=== PATIENT | male | born 1990 | race Caucasian/White ===

== ENCOUNTER 2018-03-06 10:32 | Inpatient (IN) | payer OTHER ==
[2018-03-06 10:52] VITALS: BMI 24.3
--- NOTE | 2018-03-06 11:52 | HP ---
Admission [facility] Chief Complaint: patient here requesting detox from heroin and benzo use , reports heroin 10-20 bags daily ivdu in right arm x 3 years , sober 1.5 yrs, relapse 5 mo ago , needles from the exchange , denies sharing, + re-using , latest use 2 d ago , currently c/o nausea, diarrhea , restlessness , bodyaches , went to hospital yesterday [facility] [place] 5 mg methadone given xanax : 3-6 mg daily x 3 years , denies seizures etoh use : intermittent , usually 2 x/week , latst today roland 0.08 utox + tala , opi, mtd, bzo cocaine use : 2 x/week cannabis : occasional use tobacco : 1 ppd , requesting nrt w/ patch denies other illicits pmhx : denies pshx : denies psych : denies allergies : librium ( rash, angioedema ) Allergies/Adverse Reactions: Allergies Allergy/AdvReac Type Severity Reaction Status Date / Time chlordiazepoxide Allergy Severe Difficulty Verified 03/06/18 11:00 [From Librium] Breathing - Ebola screening Have you traveled outside of the country in the last 21 days: No Have you had contact with anyone from an Ebola affected area: No Have you been sick,other than usual withdrawal symptoms: No Do you have a fever: No - Review of Systems Constitutional: No Symptoms Reported, Chills, Diaphoresis, Malaise, Night Sweats EENT: reports: No Symptoms Reported Respiratory: reports: No Symptoms reported Cardiac: reports: No Symptoms Reported GI: reports: Nausea : reports: No Symptoms Reported Musculoskeletal: reports: Back Pain Integumentary: reports: No Symptoms Reported (left cheek from a pimple), Rash Neuro: reports: No Symptoms reported Endocrine: reports: No Symptoms Reported Hematology: reports: No Symptoms Reported Psychiatric: reports: No Sypmtoms Reported, Judgement Intact, Orientated x3 Other Systems: Reviewed and Negative Patient History - Patient Medical History Hx Asthma: No Hx Chronic Obstructive Pulmonary Disease (COPD): No Hx Cardiac Disorders: No Hx Hypertension: No Hx Seizures: No Hx Diabetes: No Hx Gastrointestinal Disorders: No Hx Genitourinary Disorders: No Hx Sexually Transmitted Disorders: No Hx Renal Disease (ESRD): No Hx Depression: No Hx Suicide Attempt: No Hx Schizophrenia: No - Patient Surgical History Past Surgical History: No - PPD History Previous Implant?: Yes Documented Results: Negative w/o proof Implanted On Prior [facility] Admission?: No - Smoking Cessation Smoking history: Current every day smoker Have you smoked in the past 12 months: Yes Aproximately how many cigarettes per day: 20 Hx Chewing Tobacco Use: No Initiated information on smoking cessation: No - Substances Abused Heroin Route: Injection Frequency: Daily Amount used: 10-20 bags Age of first use: 25 Date of Last Use: 03/04/18 Alprazolam (Xanax) Route: Oral Frequency: Daily Amount used: 6mg Age of first use: 26 Date of Last Use: 03/04/18 Alcohol Route: Oral Frequency: 1-2 times per week Amount used: 1 pint liquor Age of first use: 16 Date of Last Use: 03/06/18 Cocaine Route: Injection Frequency: 1-3 times last 30 days Amount used: 1-2 grams Age of first use: 20 Date of Last Use: 03/04/18 Family Disease History - Family Disease History Family History: Denies Admission Physical Exam [facility] - Vital Signs Vital Signs: Vital Signs - 24 hr 03/06/18 10:46 Temperature 98.4 F Pulse Rate 80 Respiratory 20 Rate Blood Pressure 117/57 - Physical General Appearance: Yes: Nourished, Appropriately Dressed, Moderate Distress, Irritable, Anxious HEENTM: Yes: Within Normal Limits, EOMI, Hearing grossly Normal, Normal ENT Inspection, Normocephalic, Normal Voice, BRISEYDA, Pharynx Normal Respiratory: Yes: Within Normal Limits, Chest Non-Tender, Lungs Clear, Normal Breath Sounds, No Respiratory Distress, No Accessory Muscle Use Neck: Yes: Within Normal Limits, No masses,lesions,Nodules, Trachea in good position Cardiology: Yes: Within Normal Limits, Regular Rhythm, Regular Rate Abdominal: Yes: Within Normal Limits, Normal Bowel Sounds, Non Tender, Flat, Soft Back: Yes: Within Normal Limits, Normal Inspection Musculoskeletal: Yes: Within Normal Limits, full range of Motion, Gait Steady, Pelvis Stable Extremities: Yes: Normal Capillary Refill, Normal Inspection, Normal Range of Motion, Non-Tender, Tremors Neurological: Yes: Within Normal Limits, Fully Oriented, Alert, Motor Strength 5 /5, Normal Mood/Affect, Normal Response Integumentary: Yes: Normal Color, Dry, Warm, Rash (left cheek acne) S Breath Alcohol Content Breath Alcohol Content: 0.008 Urine Drug Screen - Results Drug Screen Negative: No Urine Drug Screen Results: TALA-Cocaine, OPI-Opiates, BZO-Benzodiazepines, MTD- Methadone
[2018-03-06] MEDS ORDERED: MAGNESIUM CITRATE 300 ML BOTTLE PO PRN (11:56)
[2018-03-06] MEDS ORDERED: ACETAMINOPHEN 325 MG TABLET (FP) PO PRN (11:56)
[2018-03-06] MEDS ORDERED: MAG HYDROX/AL HYDROX/SIMETH 30 ML UNIT-DOSE CUP PO PRN (11:56)
[2018-03-06] MEDS ORDERED: IBUPROFEN 400 MG TABLET (FP) PO PRN (11:56)
[2018-03-06] MEDS ORDERED: MAGNESIUM HYDROX 2400MG/30ML ORAL SUSPENSION 30 ML CUP PO PRN (11:56)
[2018-03-06] MEDS ORDERED: METHADONE HCL 10 MG TABLET (FOR DETOX USE ONLY) PO ONE ×2 (12:15→23:00)
[2018-03-06] MEDS: diazePAM 5 MG TABLET PO SCH ×2 (13:09→22:32)
[2018-03-06] MEDS: NICOTINE 7 MG/24 HOURS TOPICAL PATCH TD SCH (13:10)
--- NOTE | 2018-03-06 13:35 | EKG ---
Test Reason : Blood Pressure : / mmHG Vent. Rate : 059 BPM Atrial Rate : 059 BPM P-R Int : 140 ms QRS Dur : 090 ms QT Int : 440 ms P-R-T Axes : 008 028 023 degrees QTc Int : 435 ms SINUS BRADYCARDIA OTHERWISE NORMAL ECG NO PREVIOUS ECGS AVAILABLE Confirmed by TRUNG MODI, GISELLE ([id number]) on 03/06/2018 1:35:27 PM Referred By: Confirmed By:GISELLE NINO MD
[2018-03-06] MEDS: BACITRACIN/POLYMYXIN B SULFATE 15 GM TUBE TP SCH ×3 (14:58→23:57)
[2018-03-06 17:19] LABS: URINE APPEARANCE CLEAR; URINE BILIRUBIN NEGATIVE (<2.0 mg/dL); URINE COLOR YELLOW; URINE GLUCOSE (UA) NEGATIVE (NEGATIVE); URINE KETONE NEGATIVE (NEGATIVE); URINE LEUK ESTERASE NEGATIVE (NEGATIVE); URINE NITRITE NEGATIVE (NEGATIVE); URINE PROTEIN NEGATIVE (NEGATIVE); URINE UROBILINOGEN NEGATIVE mg/dL (0.2-1.0)
[2018-03-06] MEDS ORDERED: MELATONIN 5 MG TABLETS PO PRN (22:00)
[2018-03-06] MEDS: THIAMINE HCL 100 MG TABLET (FP) PO SCH (22:32)
[2018-03-07] MEDS: diazePAM 5 MG TABLET PO SCH ×3 (05:36→22:32)
[2018-03-07] MEDS ORDERED: METHADONE HCL 10 MG TABLET (FOR DETOX USE ONLY) PO SCH (10:00)
[2018-03-07 10:22] LABS: HEMATOCRIT 38.2 % (35.4-49); HEMOGLOBIN 12.6 GM/dL (11.7-16.9); MEAN CELL VOLUME 88.1 fl (80-96); MEAN PLT VOLUME 9.1 fl (7.5-11.1); PLATELET COUNT 218 K/MM3 (134-434); RBC 4.34 M/mm3 (4.00-5.60); RDW 13.5 % (11.9-15.9); WHITE BLOOD COUNT 7.7 K/mm3 (4.0-10.0)
[2018-03-07] MEDS: BACITRACIN/POLYMYXIN B SULFATE 15 GM TUBE TP SCH ×2 (10:54→22:32)
[2018-03-07] MEDS: PRENATAL VITAMINS W/ FOLIC ACID TABLET (FP) PO SCH (10:54)
[2018-03-07] MEDS: NICOTINE 7 MG/24 HOURS TOPICAL PATCH TD SCH (10:57)
[2018-03-07 12:20] LABS: ALBUMIN 3.3 g/dl (3.4-5.0); ALK PHOS 72 U/L (45-117); ANION GAP 7 MMOL/L (8-16); BILIRUBIN,TOTAL 0.5 mg/dL (0.2-1); BLOOD UREA NITROGEN 11 mg/dL (7-18); CALCIUM 8.5 mg/dL (8.5-10.1); CHLORIDE 105 mmol/L (98-107); CO2 27 mmol/L (21-32); CREATININE 0.9 mg/dL (0.55-1.3); GLUCOSE,RANDOM 71 mg/dL (74-106); POTASSIUM 4.1 mmol/L (3.5-5.1); SGOT/AST 51 U/L (15-37); SGPT/ALT 119 U/L (13-61); SODIUM 139 mmol/L (136-145); TOT PROT 6.7 g/dl (6.4-8.2)
--- NOTE | 2018-03-07 16:54 | PN ---
[facility] CIWA - CIWA Score Nausea/Vomitin-Mild Nausea/No Vomiting Muscle Tremors: 3 Anxiety: 3 Agitation: 3 Paroxysmal Sweats: 1-Minimal Palms Moist Orientation: 1-Uncertain about Date Tacttile Disturbances: 1-Very Mild Itch/Numbness Auditory Disturbances: 1-Very Mild Visual Disturbances: 0-None Headache: 0-None Present CIWA-Ar Total Score: 14 S COWS - Scale Resting Pulse: 0= [place] 80 or Below Sweatin= Chills/Flushing Restless Observation: 1= Difficult to Sit Still Pupil Size: 0= Normal to Room Light Bone or Joint Aches: 2= Severe Diffuse Aches Runny Nose/ Eye Tearin= Nasal Congestion GI Upset > 30mins: 2= Nausea/Diarrhea Tremor Observation of Outstretched Hands: 2= Slight Tremor Visible Yawning Observation: 1= 1-2x During Session Anxiety or Irritability: 2=Irritable/Anxious Goose Flesh Skin: 0=Smooth Skin COWS Score: 12 S Progress Note (SOAP) Subjective: joints pain back pain muscle cramping sweat tremor restlessness Objective: 03/07/18 16:54 Vital Signs Temperature 98.1 F 03/07/18 13:43 Pulse Rate 63 03/07/18 13:43 Respiratory Rate 18 03/07/18 13:43 Blood Pressure 110/60 03/07/18 13:43 O2 Sat by Pulse Oximetry (%) Laboratory Last Values WBC 7.7 K/mm3 (4.0-10.0) 03/07/18 06:00 RBC 4.34 M/mm3 (4.00-5.60) 03/07/18 06:00 Hgb 12.6 GM/dL (11.7-16.9) 03/07/18 06:00 Hct 38.2 % (35.4-49) 03/07/18 06:00 MCV 88.1 fl (80-96) 03/07/18 06:00 MCH 29.0 pg (25.7-33.7) 03/07/18 06:00 MCHC 33.0 g/dl (32.0-35.9) 03/07/18 06:00 RDW 13.5 % (11.9-15.9) 03/07/18 06:00 Plt Count 218 K/MM3 (134-434) 03/07/18 06:00 MPV 9.1 fl (7.5-11.1) 03/07/18 06:00 Sodium 139 mmol/L (136-145) 03/07/18 06:00 Potassium 4.1 mmol/L (3.5-5.1) 03/07/18 06:00 Chloride 105 mmol/L (98-107) 03/07/18 06:00 Carbon Dioxide 27 mmol/L (21-32) 03/07/18 06:00 Anion Gap 7 MMOL/L (8-16) L 03/07/18 06:00 BUN 11 mg/dL (7-18) 03/07/18 06:00 Creatinine 0.9 mg/dL (0.55-1.3) 03/07/18 06:00 Creat Clearance w eGFR > 60 (>60) 03/07/18 06:00 Random Glucose 71 mg/dL (74-106) L 03/07/18 06:00 Calcium 8.5 mg/dL (8.5-10.1) 03/07/18 06:00 Total Bilirubin 0.5 mg/dL (0.2-1) 03/07/18 06:00 AST 51 U/L (15-37) H 03/07/18 06:00 ALT 119 U/L (13-61) H 03/07/18 06:00 Alkaline Phosphatase 72 U/L (45-117) 03/07/18 06:00 Total Protein 6.7 g/dl (6.4-8.2) 03/07/18 06:00 Albumin 3.3 g/dl (3.4-5.0) L 03/07/18 06:00 Urine Color Yellow 03/06/18 16:13 Urine Appearance Clear 03/06/18 16:13 Urine pH 6.0 (5.0-8.0) 03/06/18 16:13 Ur Specific [place] 1.017 (1.001-1.035) 03/06/18 16:13 Urine Protein Negative (NEGATIVE) 03/06/18 16:13 Urine Glucose (UA) Negative (NEGATIVE) 03/06/18 16:13 Urine Ketones Negative (NEGATIVE) 03/06/18 16:13 Urine Blood Negative (NEGATIVE) 03/06/18 16:13 Urine Nitrite Negative (NEGATIVE) 03/06/18 16:13 Urine Bilirubin Negative (<2.0 mg/dL) 03/06/18 16:13 Urine Urobilinogen Negative mg/dL (0.2-1.0) 03/06/18 16:13 Ur Leukocyte Esterase Negative (NEGATIVE) 03/06/18 16:13 RPR Titer Nonreactive (NONREACTIVE) 03/07/18 06:00 HIV 1&2 Antibody Screen Negative 03/06/18 11:40 HIV P24 Antigen Negative 03/06/18 11:40 lab noted Assessment: 03/07/18 16:55 withdrawal sx Plan: continue detox
--- NOTE | 2018-03-07 17:49 | PN ---
BHS COWS - Scale Resting Pulse: 0= [place] 80 or Below Sweatin= No chills or Flushing Restless Observation: 0= Sits Still Pupil Size: 0= Normal to Room Light Bone or Joint Aches: 2= Severe Diffuse Aches Runny Nose/ Eye Tearin= None GI Upset > 30mins: 2= Nausea/Diarrhea Tremor Observation of Outstretched Hands: 0= None Yawning Observation: 0= None Anxiety or Irritability: 2=Irritable/Anxious Goose Flesh Skin: 0=Smooth Skin COWS Score: 6
[2018-03-07] MEDS: BENZOYL PEROXIDE 5% 60 GM GEL..GRAM. TP SCH (22:32)
[2018-03-07] MEDS: THIAMINE HCL 100 MG TABLET (FP) PO SCH (22:35)
[2018-03-08] MEDS ORDERED: METHADONE HCL 5 MG TABLET (FOR DETOX USE ONLY) PO SCH (10:00)
[2018-03-08] MEDS: PRENATAL VITAMINS W/ FOLIC ACID TABLET (FP) PO SCH (10:17)
[2018-03-08] MEDS: diazePAM 5 MG TABLET PO SCH ×2 (10:17→23:14)
[2018-03-08] MEDS: NICOTINE 7 MG/24 HOURS TOPICAL PATCH TD SCH (10:18)
[2018-03-08] MEDS: BACITRACIN/POLYMYXIN B SULFATE 15 GM TUBE TP SCH ×2 (10:18→23:14)
[2018-03-08] MEDS: BENZOYL PEROXIDE 5% 60 GM GEL..GRAM. TP SCH (10:18)
--- NOTE | 2018-03-08 13:13 | PN ---
[facility] CIWA - CIWA Score Nausea/Vomitin-Mild Nausea/No Vomiting Muscle Tremors: None Anxiety: 1-Mildly Anxious Agitation: 1-Slight > Activity Paroxysmal Sweats: 1-Minimal Palms Moist Orientation: 0-Oriented Tacttile Disturbances: 0-None Auditory Disturbances: 0-None Visual Disturbances: 0-None Headache: 0-None Present CIWA-Ar Total Score: 4 S COWS - Scale Resting Pulse: 0= [place] 80 or Below Sweatin= Chills/Flushing Restless Observation: 1= Difficult to Sit Still Pupil Size: 0= Normal to Room Light Bone or Joint Aches: 1= Mild Discomfort Runny Nose/ Eye Tearin= None GI Upset > 30mins: 1= Stomach Cramp Tremor Observation of Outstretched Hands: 0= None Yawning Observation: 0= None Anxiety or Irritability: 1=Feels Anxious/Irritable Goose Flesh Skin: 0=Smooth Skin COWS Score: 5 S Progress Note (SOAP) Subjective: PATIENT PRESENTS WITH CHILLS, MILD BODY ACHES, ANXIETY, AND STOMACH CRAMPS. Objective: 03/08/18 13:12 Vital Signs Temperature 97.5 F L 03/08/18 09:24 Pulse Rate 71 03/08/18 09:24 Respiratory Rate 18 03/08/18 09:24 Blood Pressure 117/50 L 03/08/18 09:24 O2 Sat by Pulse Oximetry (%) Laboratory Tests 03/06/18 03/06/18 03/07/18 11:40 16:13 06:00 WBC 7.7 RBC 4.34 Hgb 12.6 Hct 38.2 MCV 88.1 MCH 29.0 MCHC 33.0 RDW 13.5 Plt Count 218 MPV 9.1 Sodium Potassium Chloride Carbon Dioxide Anion Gap BUN Creatinine Creat Clearance w eGFR Random Glucose Calcium Total Bilirubin AST ALT Alkaline Phosphatase Total Protein Albumin Urine Color Yellow Urine Appearance Clear Urine pH 6.0 Ur Specific [place] 1.017 Urine Protein Negative Urine Glucose (UA) Negative Urine Ketones Negative Urine Blood Negative Urine Nitrite Negative Urine Bilirubin Negative Urine Urobilinogen Negative Ur Leukocyte Esterase Negative RPR Titer HIV 1&2 Antibody Screen Negative HIV P24 Antigen Negative 03/07/18 03/07/18 06:00 06:00 WBC RBC Hgb Hct MCV MCH MCHC RDW Plt Count MPV Sodium 139 Potassium 4.1 Chloride 105 Carbon Dioxide 27 Anion Gap 7 L BUN 11 Creatinine 0.9 Creat Clearance w eGFR > 60 Random Glucose 71 L Calcium 8.5 Total Bilirubin 0.5 AST 51 H ALT 119 H Alkaline Phosphatase 72 Total Protein 6.7 Albumin 3.3 L Urine Color Urine Appearance Urine pH Ur Specific [place] Urine Protein Urine Glucose (UA) Urine Ketones Urine Blood Urine Nitrite Urine Bilirubin Urine Urobilinogen Ur Leukocyte Esterase RPR Titer Nonreactive HIV 1&2 Antibody Screen HIV P24 Antigen ALERT AND ORIENTED SKIN WARM AND DRY, +CHILLS CAR S1S2 RESP CTA BL GI SOFT BS+, NT Assessment: 03/08/18 13:13 WITHDRAWAL SYNDROME Plan: CONTINUE DETOX PER PROTOCOL ENCOURAGE ORAL FLUIDS
[2018-03-08] MEDS ORDERED: hydrOXYzine PAMOATE 25 MG CAPSULE (FP) PO PRN (15:58)
[2018-03-08] MEDS: THIAMINE HCL 100 MG TABLET (FP) PO SCH (23:14)
[2018-03-09 06:34] VITALS: TEMP 97.9
[2018-03-09] MEDS ORDERED: METHADONE HCL 10 MG TABLET (FOR DETOX USE ONLY) PO SCH (10:00)
[2018-03-09 10:14] VITALS: BP 117/58; PULSE 63
--- NOTE | 2018-03-09 12:40 | DS ---
[facility] Detox Discharge Summary Admission Date: 03/06/18 Discharge Date: 03/09/18 - History Present History: Opioid Dependence, Sedative Dependence Pertinent Past History: Denies - Physical Exam Results Vital Signs: Vital Signs Temperature 97.9 F 03/09/18 08:30 Pulse Rate 63 03/09/18 08:30 Respiratory Rate 18 03/09/18 08:30 Blood Pressure 117/58 L 03/09/18 08:30 O2 Sat by Pulse Oximetry (%) Pertinent Admission Physical Exam Findings: Withdrawal sx Laboratory Last Values WBC 7.7 K/mm3 (4.0-10.0) 03/07/18 06:00 RBC 4.34 M/mm3 (4.00-5.60) 03/07/18 06:00 Hgb 12.6 GM/dL (11.7-16.9) 03/07/18 06:00 Hct 38.2 % (35.4-49) 03/07/18 06:00 MCV 88.1 fl (80-96) 03/07/18 06:00 MCH 29.0 pg (25.7-33.7) 03/07/18 06:00 MCHC 33.0 g/dl (32.0-35.9) 03/07/18 06:00 RDW 13.5 % (11.9-15.9) 03/07/18 06:00 Plt Count 218 K/MM3 (134-434) 03/07/18 06:00 MPV 9.1 fl (7.5-11.1) 03/07/18 06:00 Sodium 139 mmol/L (136-145) 03/07/18 06:00 Potassium 4.1 mmol/L (3.5-5.1) 03/07/18 06:00 Chloride 105 mmol/L (98-107) 03/07/18 06:00 Carbon Dioxide 27 mmol/L (21-32) 03/07/18 06:00 Anion Gap 7 MMOL/L (8-16) L 03/07/18 06:00 BUN 11 mg/dL (7-18) 03/07/18 06:00 Creatinine 0.9 mg/dL (0.55-1.3) 03/07/18 06:00 Creat Clearance w eGFR > 60 (>60) 03/07/18 06:00 Random Glucose 71 mg/dL (74-106) L 03/07/18 06:00 Calcium 8.5 mg/dL (8.5-10.1) 03/07/18 06:00 Total Bilirubin 0.5 mg/dL (0.2-1) 03/07/18 06:00 AST 51 U/L (15-37) H 03/07/18 06:00 ALT 119 U/L (13-61) H 03/07/18 06:00 Alkaline Phosphatase 72 U/L (45-117) 03/07/18 06:00 Total Protein 6.7 g/dl (6.4-8.2) 03/07/18 06:00 Albumin 3.3 g/dl (3.4-5.0) L 03/07/18 06:00 Urine Color Yellow 03/06/18 16:13 Urine Appearance Clear 03/06/18 16:13 Urine pH 6.0 (5.0-8.0) 03/06/18 16:13 Ur Specific [place] 1.017 (1.001-1.035) 03/06/18 16:13 Urine Protein Negative (NEGATIVE) 03/06/18 16:13 Urine Glucose (UA) Negative (NEGATIVE) 03/06/18 16:13 Urine Ketones Negative (NEGATIVE) 03/06/18 16:13 Urine Blood Negative (NEGATIVE) 03/06/18 16:13 Urine Nitrite Negative (NEGATIVE) 03/06/18 16:13 Urine Bilirubin Negative (<2.0 mg/dL) 03/06/18 16:13 Urine Urobilinogen Negative mg/dL (0.2-1.0) 03/06/18 16:13 Ur Leukocyte Esterase Negative (NEGATIVE) 03/06/18 16:13 RPR Titer Nonreactive (NONREACTIVE) 03/07/18 06:00 HIV 1&2 Antibody Screen Negative 03/06/18 11:40 HIV P24 Antigen Negative 03/06/18 11:40 Labs noted - Treatment Hospital Course: Detox Protocol Followed, Detoxed Safely, Responded well, Discharged Condition Good - Medication Discharge Medications: Ambulatory Orders NK [No Known Home Medication] 03/06/18 - Diagnosis (1) Opiate withdrawal Status: Acute (2) Benzodiazepine withdrawal Status: Acute - AMA Did Patient Leave Against Medical Advice: No (Patient requested early discharge)
[2018-03-10] MEDS ORDERED: METHADONE HCL 5 MG TABLET (FOR DETOX USE ONLY) PO SCH (06:00)
[2018-03-10] MEDS ORDERED: diazePAM 5 MG TABLET PO SCH (10:00)
== END 2018-03-09 09:52 | disposition home or self-care (01) | DRG 773 ==
LOC: YASAS 10:32 → Y6N 11:42
PROC: HZ2ZZZZ Detoxification Services for Substance Abuse Treatment (ICD-10-PCS; principal; 2018-03-06)
DX: F11.23 Opioid dependence with withdrawal (principal); F13.230 Sedative, hypnotic or anxiolytic dependence with withdrawal, uncomplicated; Z88.8 Allergy status to other drugs, medicaments and biological substances
CPT/HCPCS: 36415; 80053; 81003; 85027; 86593; 87389; 93005; 93010

== ENCOUNTER 2018-04-25 10:56 | Inpatient (IN) | payer OTHER ==
[2018-04-25 11:50] VITALS: BMI 25.0
--- NOTE | 2018-04-25 13:50 | HP ---
COWS - Scale Resting Pulse: 1= [place] 81-100 Sweatin= Chills/Flushing Restless Observation: 1= Difficult to Sit Still Pupil Size: 1= Pupils >than Normal Bone or Joint Aches: 2= Severe Diffuse Aches Runny Nose/ Eye Tearin= Nasal Congestion GI Upset > 30mins: 2= Nausea/Diarrhea Tremor Observation: 2= Slight Tremor Visible Yawning Observation: 2= >3x During Session Anxiety or Irritability: 2=Irritable/Anxious Goose Flesh Skin: 0=Smooth Skin COWS Score: 15 CIWA Score Nausea/Vomitin Muscle Tremors: 2 Anxiety: 2 Agitation: 2 Paroxysmal Sweats: 1-Minimal Palms Moist Orientation: 0-Oriented Tacttile Disturbances: 1-Very Mild Itch/Numbness Auditory Disturbances: 1-Very Mild Visual Disturbances: 0-None Headache: 2-Mild CIWA-Ar Total Score: 13 - Admission Criteria [facility] Guidelines: Admission for Medically Managed Detox: Requires at least one of the followin. CIWA greater than 12 2. Seizures within the past 24 hours 3. Delirium tremens within the past 24 hours 4. Hallucinations within the past 24 hours 5. Acute intervention needed for co occurring medical disorder 6. Acute intervention needed for co occurring psychiatric disorder 7. Severe withdrawal that cannot be handled at a lower level of care (continued vomiting, continued diarrhea, abnormal vital signs) requiring intravenous medication and/or fluids 8. Patient presents the following: CIWA greater than 12 Admission Criteria Met: Admission criteria met Admission ROS S - [facility] Chief Complaint: i need help to stop =using heroin,alcohol,cocaine,xanx Allergies/Adverse Reactions: Allergies Allergy/AdvReac Type Severity Reaction Status Date / Time chlordiazepoxide Allergy Severe Difficulty Verified 04/25/18 13:02 [From Librium] Breathing History of Present Illness: this 28 years old male with heroin,alcohol,xanax and cocaine dependence, withdrawal symptom,seeking detox,last detox [facility] 03/06/18 to 03/09/18 weight loss nicotine dependence multiple admissions but relapsing longest period of sobriety 1 and a half year Exam Limitations: No Limitations - Ebola screening Have you traveled outside of the country in the last 21 days: No Have you had contact with anyone from an Ebola affected area: No Have you been sick,other than usual withdrawal symptoms: No - Review of Systems Constitutional: Chills, Loss of Appetite, Malaise, Night Sweats, Changes in sleep, Weakness, Unintentional Wgt. Loss EENT: reports: Tearing, Nose Congestion Respiratory: reports: No Symptoms reported Cardiac: reports: Palpitations GI: reports: Nausea, Poor Appetite, Abdominal cramping : reports: No Symptoms Reported Musculoskeletal: reports: Back Pain, Joint Pain, Muscle Pain Integumentary: reports: Dryness, Other (iv drug) Neuro: reports: Headache, Tremors Endocrine: reports: No Symptoms Reported Hematology: reports: No Symptoms Reported Psychiatric: reports: No Sypmtoms Reported, Judgement Intact, Mood/Affect Appropiate, Orientated x3 Patient History - Patient Medical History Hx Anemia: No Hx Asthma: No Hx Chronic Obstructive Pulmonary Disease (COPD): No Hx Cancer: No Hx Cardiac Disorders: No Hx Congestive Heart Failure: No Hx Hypertension: No Hx Hypercholesterolemia: No Hx Pacemaker: No HX Cerebrovascular Accident: No Hx Seizures: No Hx Dementia: No Hx Diabetes: No Hx Gastrointestinal Disorders: No Hx Liver Disease: No Hx Genitourinary Disorders: No Hx Sexually Transmitted Disorders: No Hx Renal Disease (ESRD): No Hx Thyroid Disease: No Hx Human Immunodeficiency Virus (HIV): No (last 04/18/18 negative) Hx Hepatitis C: No Hx Depression: No Hx Suicide Attempt: No Hx Bipolar Disorder: No Hx Schizophrenia: No Other Medical History: no suicidal,no homicidal - Patient Surgical History Past Surgical History: No - PPD History Previous Implant?: Yes Documented Results: Negative w/proof Implanted On Prior R Admission?: Yes Date: 03/08/18 Results: 0MM PPD to be Administered?: No - Smoking Cessation Smoking history: Current every day smoker Have you smoked in the past 12 months: Yes Aproximately how many cigarettes per day: 20 Hx Chewing Tobacco Use: No Initiated information on smoking cessation: Yes 'Breaking Loose' booklet given: 04/25/18 - Substance & Tx. History Hx Alcohol Use: Yes Hx Substance Use: Yes Substance Use Type: Alcohol, Cocaine, Heroin, Tranquilizers - Substances Abused Heroin Route: Injection Frequency: Daily Amount used: 10-20 BAGS Age of first use: 25 Date of Last Use: 04/24/18 Alcohol Route: Oral Frequency: Daily Amount used: 2 PINTS VODKA Age of first use: 20 Date of Last Use: 04/24/18 Cocaine Route: Inhalation Frequency: 3-6 times per week Amount used: 1 GRAM Age of first use: 16 Date of Last Use: 04/24/18 Alprazolam (Xanax) Route: Oral Frequency: Daily Amount used: 6MG Age of first use: 25 Date of Last Use: 04/24/18 Family Disease History - Family Disease History Family History: Denies Admission Physical Exam [facility] - Vital Signs Vital Signs: Vital Signs - 24 hr 04/25/18 11:48 Temperature 98.1 F Pulse Rate 91 H Respiratory 20 Rate Blood Pressure 122/56 L - Physical General Appearance: Yes: Moderate Distress, Tremorous, Irritable, Sweating, Anxious HEENTM: Yes: Normal ENT Inspection, BRISEYDA, Pharynx Normal Respiratory: Yes: Within Normal Limits, Lungs Clear, No Respiratory Distress Neck: Yes: Within Normal Limits, Supple, Trachea in good position Breast: Yes: Within Normal Limits Cardiology: Yes: Within Normal Limits, Regular Rhythm, Regular Rate, S1, S2 Abdominal: Yes: Within Normal Limits, Normal Bowel Sounds, Non Tender, Flat, Soft Genitourinary: Yes: Within Normal Limits Back: Yes: Muscle Spasm Musculoskeletal: Yes: full range of Motion, Back pain, Muscle Pain Extremities: Yes: Within Normal Limits, Normal Range of Motion, Tremors Neurological: Yes: Within Normal Limits, composite boat builder II-XII NML intact, Fully Oriented, Alert, Motor Strength 5/5 Integumentary: Yes: Dry Lymphatic: Yes: Within Normal Limits - Diagnostic (1) Opioid dependence with withdrawal Current Visit: Yes Status: Acute (2) Alcohol dependence with uncomplicated withdrawal Current Visit: Yes Status: Acute (3) Uncomplicated sedative, hypnotic or anxiolytic withdrawal Current Visit: Yes Status: Acute (4) Cocaine dependence Current Visit: Yes Status: Acute (5) Nicotine dependence Current Visit: Yes Status: Acute Cleared for Admission [facility] - Detox or Rehab [facility] Level of Care: Medically Managed Detox Regimen/Protocol: Methadone/Valium [facility] Breath Alcohol Content Breath Alcohol Content: 0.01 Urine Drug Screen - Results Drug Screen Negative: No Urine Drug Screen Results: JAGRUTI-Cocaine, OPI-Opiates
[2018-04-25] MEDS ORDERED: LOPERAMIDE HCL 2 MG CAPSULE PO PRN (14:02)
[2018-04-25] MEDS ORDERED: guaiFENesin/D-METHORPHAN HB 10 ML UNIT-DOSE CUPS PO PRN (14:02)
[2018-04-25] MEDS ORDERED: MAG HYDROX/AL HYDROX/SIMETH 30 ML UNIT-DOSE CUP PO PRN (14:02)
[2018-04-25] MEDS ORDERED: IBUPROFEN 400 MG TABLET (FP) PO PRN (14:02)
[2018-04-25] MEDS ORDERED: MAGNESIUM HYDROX 2400MG/30ML ORAL SUSPENSION 30 ML CUP PO PRN (14:02)
[2018-04-25] MEDS ORDERED: P-EPHED 60MG/TRIPROLIDI 2.5MG TABLET PO PRN (14:02)
[2018-04-25] MEDS ORDERED: ACETAMINOPHEN 325 MG TABLET (FP) PO PRN (14:02)
[2018-04-25] MEDS ORDERED: MENTHOL/PHENOL 1 EACH UD MM PRN (14:02)
[2018-04-25] MEDS ORDERED: MAGNESIUM CITRATE 300 ML BOTTLE PO PRN (14:02)
[2018-04-25] MEDS ORDERED: diazePAM 5 MG TABLET PO ONE (15:05)
[2018-04-25] MEDS ORDERED: METHADONE HCL 10 MG TABLET (FOR DETOX USE ONLY) PO ONE ×2 (15:10→23:00)
[2018-04-25] MEDS ORDERED: NICOTINE 21 MG/24 HOURS TOPICAL PATCH TD SCH (15:15)
[2018-04-25] MEDS: diazePAM 5 MG TABLET PO SCH ×2 (15:19→22:08)
[2018-04-25 17:19] LABS: URINE APPEARANCE SLCLOUDY; URINE BILIRUBIN NEGATIVE (<2.0 mg/dL); URINE COLOR YELLOW; URINE GLUCOSE (UA) NEGATIVE (NEGATIVE); URINE KETONE NEGATIVE (NEGATIVE); URINE LEUK ESTERASE NEGATIVE (NEGATIVE); URINE NITRITE NEGATIVE (NEGATIVE); URINE PROTEIN 1+ (NEGATIVE); URINE UROBILINOGEN NEGATIVE mg/dL (0.2-1.0)
[2018-04-25] MEDS: diazePAM 5 MG TABLET PO PRN (17:29)
[2018-04-25 17:48] LABS: EPI CELLS RARE /HPF (FEW); URINE BACTERIA RARE /hpf (NONE SEEN); URINE MUCUS RARE
[2018-04-25] MEDS ORDERED: NICOTINE POLACRILEX 2 MG GUM BUC PRN (18:07)
[2018-04-25] MEDS ORDERED: MELATONIN 5 MG TABLETS PO PRN (22:00)
[2018-04-25] MEDS: cloNIDine HCL 0.1 MG TABLET PO SCH (22:07)
[2018-04-25] MEDS: THIAMINE HCL 100 MG TABLET (FP) PO SCH (22:08)
[2018-04-26] MEDS: diazePAM 5 MG TABLET PO SCH ×3 (06:38→21:54)
[2018-04-26] MEDS ORDERED: METHADONE HCL 10 MG TABLET (FOR DETOX USE ONLY) PO SCH (10:00)
[2018-04-26 10:10] LABS: HEMATOCRIT 42.7 % (35.4-49); MCH 29.2 pg (25.7-33.7); MCHC 32.9 g/dl (32.0-35.9); MEAN CELL VOLUME 88.8 fl (80-96); MEAN PLT VOLUME 9.2 fl (7.5-11.1); PLATELET COUNT 200 K/MM3 (134-434); RBC 4.81 M/mm3 (4.00-5.60); WHITE BLOOD COUNT 10.6 K/mm3 (4.0-10.0)
[2018-04-26] MEDS: diazePAM 5 MG TABLET PO PRN ×2 (10:44→19:34)
[2018-04-26] MEDS: CYCLOBENZAPRINE HCL 10 MG TABLET (FP) PO PRN ×2 (10:44→21:53)
[2018-04-26] MEDS: cloNIDine HCL 0.1 MG TABLET PO SCH ×2 (10:44→21:55)
[2018-04-26] MEDS: PRENATAL VITAMINS W/ FOLIC ACID TABLET (FP) PO SCH (10:44)
[2018-04-26] MEDS: NICOTINE 21 MG/24 HOURS TOPICAL PATCH TD SCH (10:45)
[2018-04-26 10:59] LABS: ALBUMIN 3.8 g/dl (3.4-5.0); ALK PHOS 100 U/L (45-117); ANION GAP 11 MMOL/L (8-16); BILIRUBIN,TOTAL 0.6 mg/dL (0.2-1); BLOOD UREA NITROGEN 15 mg/dL (7-18); CALCIUM 8.9 mg/dL (8.5-10.1); CHLORIDE 101 mmol/L (98-107); CO2 26 mmol/L (21-32); CREATININE 0.9 mg/dL (0.55-1.3); GLUCOSE,RANDOM 108 mg/dL (74-106); POTASSIUM 3.9 mmol/L (3.5-5.1); SGOT/AST 103 U/L (15-37); SGPT/ALT 177 U/L (13-61); SODIUM 138 mmol/L (136-145); TOT PROT 7.5 g/dl (6.4-8.2)
--- NOTE | 2018-04-26 14:52 | EKG ---
Test Reason : Blood Pressure : / mmHG Vent. Rate : 069 BPM Atrial Rate : 069 BPM P-R Int : 140 ms QRS Dur : 090 ms QT Int : 394 ms P-R-T Axes : 010 023 033 degrees QTc Int : 422 ms NORMAL SINUS RHYTHM INCOMPLETE RBBB WHEN COMPARED WITH ECG OF 06-MAR-2018 12:52, NO SIGNIFICANT CHANGE WAS FOUND Confirmed by JAYDEN TOUSSAINT MD ([id number]) on 04/26/2018 2:51:57 PM Referred By: Confirmed By:JAYDEN TOUSSAINT MD
--- NOTE | 2018-04-26 16:02 | PN ---
S CIWA - CIWA Score Nausea/Vomitin Muscle Tremors: 4-Moderate,w/Arms Extend Anxiety: 4-Mod. Anxious/Guarded Agitation: 4-Moderately Restless Paroxysmal Sweats: 3 Orientation: 0-Oriented Tacttile Disturbances: 0-None Auditory Disturbances: 0-None Visual Disturbances: 0-None Headache: 0-None Present CIWA-Ar Total Score: 17 BHS COWS - Scale Resting Pulse: 0= [place] 80 or Below Sweatin= Chills/Flushing Restless Observation: 3= Extraneous Movement Pupil Size: 0= Normal to Room Light Bone or Joint Aches: 2= Severe Diffuse Aches Runny Nose/ Eye Tearin= Runny Nose/Eyes GI Upset > 30mins: 3= Vomiting/Diarrhea Tremor Observation of Outstretched Hands: 2= Slight Tremor Visible Yawning Observation: 0= None Anxiety or Irritability: 2=Irritable/Anxious Goose Flesh Skin: 0=Smooth Skin COWS Score: 15 S Progress Note (SOAP) Subjective: Tremor, chills, sweating, interrupted sleep Objective: 04/26/18 16:00 Last Vital Signs Temp Pulse Resp BP Pulse Ox 97.7 F 69 20 97/50 L 04/26/18 15:44 04/26/18 15:44 04/26/18 15:44 04/26/18 15:44 Hypotension noted (97/50) Laboratory Tests 04/25/18 04/25/18 04/26/18 15:03 15:48 06:00 WBC 10.6 H RBC 4.81 Hgb 14.0 Hct 42.7 MCV 88.8 MCH 29.2 MCHC 32.9 RDW 14.0 Plt Count 200 MPV 9.2 Sodium Potassium Chloride Carbon Dioxide Anion Gap BUN Creatinine Creat Clearance w eGFR Random Glucose Calcium Total Bilirubin AST ALT Alkaline Phosphatase Total Protein Albumin Urine Color Yellow Urine Appearance Slcloudy Urine pH 7.0 Ur Specific [place] 1.026 Urine Protein 1+ H Urine Glucose (UA) Negative Urine Ketones Negative Urine Blood Negative Urine Nitrite Negative Urine Bilirubin Negative Urine Urobilinogen Negative Ur Leukocyte Esterase Negative Urine WBC (Auto) 3 Urine RBC (Auto) <1 Ur Epithelial Cells Rare Urine Bacteria Rare Urine Mucus Rare RPR Titer HIV 1&2 Antibody Screen Negative HIV P24 Antigen Negative 04/26/18 04/26/18 06:00 06:00 WBC RBC Hgb Hct MCV MCH MCHC RDW Plt Count MPV Sodium 138 Potassium 3.9 Chloride 101 Carbon Dioxide 26 Anion Gap 11 BUN 15 Creatinine 0.9 Creat Clearance w eGFR > 60 Random Glucose 108 H Calcium 8.9 Total Bilirubin 0.6 AST 103 H ALT 177 H Alkaline Phosphatase 100 Total Protein 7.5 Albumin 3.8 Urine Color Urine Appearance Urine pH Ur Specific [place] Urine Protein Urine Glucose (UA) Urine Ketones Urine Blood Urine Nitrite Urine Bilirubin Urine Urobilinogen Ur Leukocyte Esterase Urine WBC (Auto) Urine RBC (Auto) Ur Epithelial Cells Urine Bacteria Urine Mucus RPR Titer Nonreactive HIV 1&2 Antibody Screen HIV P24 Antigen Labs reviewed: abnormal UA Assessment: 04/26/18 16:01 Withdrawal sxs Noted with abnormal UA Plan: Continue detox Abnormal UA: encouraged PO water intake, repeat UA
[2018-04-26] MEDS: THIAMINE HCL 100 MG TABLET (FP) PO SCH (21:53)
[2018-04-27] MEDS: PRENATAL VITAMINS W/ FOLIC ACID TABLET (FP) PO SCH (10:41)
[2018-04-27] MEDS: METHADONE HCL 5 MG TABLET (FOR DETOX USE ONLY) PO SCH (10:41)
[2018-04-27] MEDS: cloNIDine HCL 0.1 MG TABLET PO SCH ×2 (10:41→22:13)
[2018-04-27] MEDS: diazePAM 5 MG TABLET PO SCH ×2 (10:42→22:13)
[2018-04-27] MEDS: NICOTINE 21 MG/24 HOURS TOPICAL PATCH TD SCH (10:43)
--- NOTE | 2018-04-27 12:00 | PN ---
S CIWA - CIWA Score Nausea/Vomitin-No Nausea/No Vomiting Muscle Tremors: 2 Anxiety: 3 Agitation: 3 Paroxysmal Sweats: 3 Orientation: 0-Oriented Tacttile Disturbances: 1-Very Mild Itch/Numbness Auditory Disturbances: 0-None Visual Disturbances: 0-None Headache: 0-None Present CIWA-Ar Total Score: 12 BHS COWS - Scale Resting Pulse: 1= [place] 81-100 Sweatin= Chills/Flushing Restless Observation: 1= Difficult to Sit Still Pupil Size: 1= Pupils >than Normal Bone or Joint Aches: 1= Mild Discomfort Runny Nose/ Eye Tearin= Runny Nose/Eyes GI Upset > 30mins: 0= None Tremor Observation of Outstretched Hands: 2= Slight Tremor Visible Yawning Observation: 2= >3x During Session Anxiety or Irritability: 2=Irritable/Anxious Goose Flesh Skin: 0=Smooth Skin COWS Score: 13 S Progress Note (SOAP) Subjective: sweats, chills, body aches, interrupted sleep Objective: 04/27/18 11:56 Vital Signs Temperature 98.6 F 04/27/18 10:56 Pulse Rate 93 H 04/27/18 10:56 Respiratory Rate 18 04/27/18 10:56 Blood Pressure 103/55 L 04/27/18 10:56 O2 Sat by Pulse Oximetry (%) 04/27/18 11:58 Laboratory Last Values WBC 10.6 K/mm3 (4.0-10.0) H 04/26/18 06:00 RBC 4.81 M/mm3 (4.00-5.60) 04/26/18 06:00 Hgb 14.0 GM/dL (11.7-16.9) 04/26/18 06:00 Hct 42.7 % (35.4-49) 04/26/18 06:00 MCV 88.8 fl (80-96) 04/26/18 06:00 MCH 29.2 pg (25.7-33.7) 04/26/18 06:00 MCHC 32.9 g/dl (32.0-35.9) 04/26/18 06:00 RDW 14.0 % (11.9-15.9) 04/26/18 06:00 Plt Count 200 K/MM3 (134-434) 04/26/18 06:00 MPV 9.2 fl (7.5-11.1) 04/26/18 06:00 Sodium 138 mmol/L (136-145) 04/26/18 06:00 Potassium 3.9 mmol/L (3.5-5.1) 04/26/18 06:00 Chloride 101 mmol/L (98-107) 04/26/18 06:00 Carbon Dioxide 26 mmol/L (21-32) 04/26/18 06:00 Anion Gap 11 MMOL/L (8-16) 04/26/18 06:00 BUN 15 mg/dL (7-18) 04/26/18 06:00 Creatinine 0.9 mg/dL (0.55-1.3) 04/26/18 06:00 Creat Clearance w eGFR > 60 (>60) 04/26/18 06:00 Random Glucose 108 mg/dL (74-106) H 04/26/18 06:00 Calcium 8.9 mg/dL (8.5-10.1) 04/26/18 06:00 Total Bilirubin 0.6 mg/dL (0.2-1) 04/26/18 06:00 AST 103 U/L (15-37) H 04/26/18 06:00 ALT 177 U/L (13-61) H 04/26/18 06:00 Alkaline Phosphatase 100 U/L (45-117) 04/26/18 06:00 Total Protein 7.5 g/dl (6.4-8.2) 04/26/18 06:00 Albumin 3.8 g/dl (3.4-5.0) 04/26/18 06:00 Urine Color Yellow 04/25/18 15:48 Urine Appearance Slcloudy 04/25/18 15:48 Urine pH 7.0 (5.0-8.0) 04/25/18 15:48 Ur Specific [place] 1.026 (1.010-1.035) 04/25/18 15:48 Urine Protein 1+ (NEGATIVE) H 04/25/18 15:48 Urine Glucose (UA) Negative (NEGATIVE) 04/25/18 15:48 Urine Ketones Negative (NEGATIVE) 04/25/18 15:48 Urine Blood Negative (NEGATIVE) 04/25/18 15:48 Urine Nitrite Negative (NEGATIVE) 04/25/18 15:48 Urine Bilirubin Negative (<2.0 mg/dL) 04/25/18 15:48 Urine Urobilinogen Negative mg/dL (0.2-1.0) 04/25/18 15:48 Ur Leukocyte Esterase Negative (NEGATIVE) 04/25/18 15:48 Urine WBC (Auto) 3 /hpf (3-5) 04/25/18 15:48 Urine RBC (Auto) <1 /hpf (0-3) 04/25/18 15:48 Ur Epithelial Cells Rare /HPF (FEW) 04/25/18 15:48 Urine Bacteria Rare /hpf (NONE SEEN) 04/25/18 15:48 Urine Mucus Rare 04/25/18 15:48 RPR Titer Nonreactive (NONREACTIVE) 04/26/18 06:00 HIV 1&2 Antibody Screen Negative 04/25/18 15:03 HIV P24 Antigen Negative 04/25/18 15:03 Aox3 no distress no adventitious breath sounds full ROM ambulatory Assessment: 04/27/18 12:04 withdrawal sx Plan: increase fluids continue detox continue to monitor
[2018-04-27] MEDS: diazePAM 5 MG TABLET PO PRN ×2 (14:01→19:25)
[2018-04-27] MEDS: THIAMINE HCL 100 MG TABLET (FP) PO SCH (22:14)
[2018-04-28] MEDS: diazePAM 5 MG TABLET PO PRN ×2 (08:37→12:57)
[2018-04-28] MEDS: PRENATAL VITAMINS W/ FOLIC ACID TABLET (FP) PO SCH (10:33)
[2018-04-28] MEDS: METHADONE HCL 5 MG TABLET (FOR DETOX USE ONLY) PO SCH (10:33)
[2018-04-28] MEDS: diazePAM 5 MG TABLET PO SCH ×2 (10:33→22:22)
[2018-04-28] MEDS: NICOTINE 21 MG/24 HOURS TOPICAL PATCH TD SCH (10:35)
[2018-04-28] MEDS: cloNIDine HCL 0.1 MG TABLET PO SCH ×2 (10:35→22:22)
[2018-04-28] MEDS: CYCLOBENZAPRINE HCL 10 MG TABLET (FP) PO PRN ×2 (12:57→22:22)
--- NOTE | 2018-04-28 15:06 | PN ---
B[facility] Progress Note (SOAP) Subjective: Chills, sweating, body ache, interrupted sleep Objective: 04/28/18 15:04 Last Vital Signs Temp Pulse Resp BP Pulse Ox 97.4 F L 50 L 18 100/62 04/28/18 14:53 04/28/18 14:53 04/28/18 14:53 04/28/18 14:53 Laboratory Tests 04/25/18 04/25/18 04/26/18 15:03 15:48 06:00 WBC 10.6 H RBC 4.81 Hgb 14.0 Hct 42.7 MCV 88.8 MCH 29.2 MCHC 32.9 RDW 14.0 Plt Count 200 MPV 9.2 Sodium Potassium Chloride Carbon Dioxide Anion Gap BUN Creatinine Creat Clearance w eGFR Random Glucose Calcium Total Bilirubin AST ALT Alkaline Phosphatase Ammonia Total Protein Albumin Urine Color Yellow Urine Appearance Slcloudy Urine pH 7.0 Ur Specific [place] 1.026 Urine Protein 1+ H Urine Glucose (UA) Negative Urine Ketones Negative Urine Blood Negative Urine Nitrite Negative Urine Bilirubin Negative Urine Urobilinogen Negative Ur Leukocyte Esterase Negative Urine WBC (Auto) 3 Urine RBC (Auto) <1 Ur Epithelial Cells Rare Urine Bacteria Rare Urine Mucus Rare RPR Titer HIV 1&2 Antibody Screen Negative HIV P24 Antigen Negative 04/26/18 04/26/18 04/28/18 06:00 06:00 07:30 WBC RBC Hgb Hct MCV MCH MCHC RDW Plt Count MPV Sodium 138 Potassium 3.9 Chloride 101 Carbon Dioxide 26 Anion Gap 11 BUN 15 Creatinine 0.9 Creat Clearance w eGFR > 60 Random Glucose 108 H Calcium 8.9 Total Bilirubin 0.6 AST 103 H ALT 177 H Alkaline Phosphatase 100 Ammonia 88.40 H Total Protein 7.5 Albumin 3.8 Urine Color Urine Appearance Urine pH Ur Specific [place] Urine Protein Urine Glucose (UA) Urine Ketones Urine Blood Urine Nitrite Urine Bilirubin Urine Urobilinogen Ur Leukocyte Esterase Urine WBC (Auto) Urine RBC (Auto) Ur Epithelial Cells Urine Bacteria Urine Mucus RPR Titer Nonreactive HIV 1&2 Antibody Screen HIV P24 Antigen Labs reviewed: abnormal UA Assessment: 04/28/18 15:05 Withdrawal sxs Plan: Continue detox Abnormal UA: encouraged PO water intake, repeat UA
[2018-04-28 19:04] LABS: URINE APPEARANCE CLEAR; URINE BILIRUBIN NEGATIVE (<2.0 mg/dL); URINE COLOR YELLOW; URINE GLUCOSE (UA) NEGATIVE (NEGATIVE); URINE KETONE NEGATIVE (NEGATIVE); URINE LEUK ESTERASE NEGATIVE (NEGATIVE); URINE NITRITE NEGATIVE (NEGATIVE); URINE PROTEIN NEGATIVE (NEGATIVE); URINE UROBILINOGEN NEGATIVE mg/dL (0.2-1.0)
[2018-04-28] MEDS: THIAMINE HCL 100 MG TABLET (FP) PO SCH (22:22)
[2018-04-29] MEDS ORDERED: diazePAM 5 MG TABLET PO SCH (10:00)
[2018-04-29] MEDS ORDERED: METHADONE HCL 10 MG TABLET (FOR DETOX USE ONLY) PO SCH (10:00)
[2018-04-29] MEDS: PRENATAL VITAMINS W/ FOLIC ACID TABLET (FP) PO SCH (10:13)
[2018-04-29] MEDS: NICOTINE 21 MG/24 HOURS TOPICAL PATCH TD SCH (10:13)
[2018-04-29] MEDS: cloNIDine HCL 0.1 MG TABLET PO SCH (10:13)
[2018-04-29 13:33] VITALS: BP 95/62; PULSE 101; TEMP 98.1
--- NOTE | 2018-04-29 14:15 | PN ---
B[facility] Progress Note (SOAP) Subjective: Requesting to be discharged today States he wants to go as he has pink eye Refusing evaluation of his pink eye/treatment Objective: 04/29/18 14:26 Irritable Seeing pt for first time Not receptive to advise to complete detox Will sign out against medical advice Plan: To leave against medical advice
--- NOTE | 2018-04-29 14:39 | DS ---
[facility] Detox Discharge Summary Admission Date: 04/25/18 Discharge Date: 04/29/18 - History Additional Comments: Pt signing out of unit against medical advice as pt has not completed detox - Physical Exam Results Vital Signs: Vital Signs Temperature 98.1 F 04/29/18 13:32 Pulse Rate 101 H 04/29/18 13:32 Respiratory Rate 20 04/29/18 13:32 Blood Pressure 95/62 04/29/18 13:32 O2 Sat by Pulse Oximetry (%) - Medication Discharge Medications: Ambulatory Orders NK [No Known Home Medication] 03/06/18 - AMA Did Patient Leave Against Medical Advice: Yes
[2018-04-30] MEDS ORDERED: METHADONE HCL 5 MG TABLET (FOR DETOX USE ONLY) PO SCH (06:00)
== END 2018-04-29 14:30 | disposition left against medical advice (07) | DRG 770 ==
LOC: YASAS 10:56 → Y3N 14:12
PROC: HZ2ZZZZ Detoxification Services for Substance Abuse Treatment (ICD-10-PCS; principal; 2018-04-25)
DX: F11.23 Opioid dependence with withdrawal (principal); F10.230 Alcohol dependence with withdrawal, uncomplicated; F13.230 Sedative, hypnotic or anxiolytic dependence with withdrawal, uncomplicated; F14.20 Cocaine dependence, uncomplicated; F17.200 Nicotine dependence, unspecified, uncomplicated; R82.90 Unspecified abnormal findings in urine; Z88.8 Allergy status to other drugs, medicaments and biological substances
CPT/HCPCS: 36415; 80053; 81003; 81015; 82140; 85027; 86593; 87389; 93005; 93010; J0735

== ENCOUNTER 2018-06-03 11:34 | Inpatient (IN) | payer OTHER ==
[2018-06-03 12:13] VITALS: BMI 25.7
--- NOTE | 2018-06-03 13:26 | HP ---
COWS - Scale Resting Pulse: 1= [place] 81-100 Sweatin= Chills/Flushing Restless Observation: 1= Difficult to Sit Still Pupil Size: 1= Pupils >than Normal Bone or Joint Aches: 2= Severe Diffuse Aches Runny Nose/ Eye Tearin= Runny Nose/Eyes GI Upset > 30mins: 2= Nausea/Diarrhea Tremor Observation: 2= Slight Tremor Visible Yawning Observation: 1= 1-2x During Session Anxiety or Irritability: 2=Irritable/Anxious Goose Flesh Skin: 0=Smooth Skin COWS Score: 15 CIWA Score Nausea/Vomitin Muscle Tremors: 2 Anxiety: 2 Agitation: 2 Paroxysmal Sweats: 1-Minimal Palms Moist Orientation: 0-Oriented Tacttile Disturbances: 1-Very Mild Itch/Numbness Auditory Disturbances: 1-Very Mild Visual Disturbances: 0-None Headache: 2-Mild CIWA-Ar Total Score: 13 - Admission Criteria [facility] Guidelines: Admission for Medically Managed Detox: Requires at least one of the followin. CIWA greater than 12 2. Seizures within the past 24 hours 3. Delirium tremens within the past 24 hours 4. Hallucinations within the past 24 hours 5. Acute intervention needed for co occurring medical disorder 6. Acute intervention needed for co occurring psychiatric disorder 7. Severe withdrawal that cannot be handled at a lower level of care (continued vomiting, continued diarrhea, abnormal vital signs) requiring intravenous medication and/or fluids 8. Patient presents the following: CIWA greater than 12 Admission Criteria Met: Admission criteria met Admission ROS [facility] Chief Complaint: i need help to stop using heroin,alcohol and cocaine Allergies/Adverse Reactions: Allergies Allergy/AdvReac Type Severity Reaction Status Date / Time chlordiazepoxide Allergy Severe Difficulty Verified 06/03/18 14:01 [From Librium] Breathing - Ebola screening Have you traveled outside of the country in the last 21 days: No Have you had contact with anyone from an Ebola affected area: No Have you been sick,other than usual withdrawal symptoms: No - Review of Systems Constitutional: Chills, Loss of Appetite, Malaise, Night Sweats, Changes in sleep, Weakness, Unintentional Wgt. Loss EENT: reports: Tearing, Nose Congestion Respiratory: reports: No Symptoms reported Cardiac: reports: No Symptoms Reported GI: reports: Nausea, Poor Appetite, Abdominal cramping : reports: No Symptoms Reported Musculoskeletal: reports: Back Pain, Joint Pain, Muscle Pain, Joint Stiffness Integumentary: reports: Dryness Neuro: reports: Headache, Tremors Endocrine: reports: No Symptoms Reported Hematology: reports: No Symptoms Reported Psychiatric: reports: No Sypmtoms Reported, Judgement Intact, Mood/Affect Appropiate, Orientated x3 Patient History - Patient Medical History Hx Anemia: No Hx Asthma: No Hx Chronic Obstructive Pulmonary Disease (COPD): No Hx Cancer: No Hx Cardiac Disorders: No Hx Congestive Heart Failure: No Hx Hypertension: No Hx Hypercholesterolemia: No Hx Pacemaker: No HX Cerebrovascular Accident: No Hx Seizures: No Hx Dementia: No Hx Diabetes: No Hx Gastrointestinal Disorders: No Hx Liver Disease: No Hx Genitourinary Disorders: No Hx Sexually Transmitted Disorders: No Hx Renal Disease (ESRD): No Hx Thyroid Disease: No Hx Human Immunodeficiency Virus (HIV): No (last 04/18/18 negative) Hx Hepatitis C: No Hx Depression: No Hx Suicide Attempt: No Hx Bipolar Disorder: No Hx Schizophrenia: No Other Medical History: no suicidal,no homicidal - Patient Surgical History Past Surgical History: No Hx Neurologic Surgery: No Hx Cataract Extraction: No Hx Cardiac Surgery: No Hx Lung Surgery: No Hx Breast Surgery: No Hx Breast Biopsy: No Hx Abdominal Surgery: No Hx Appendectomy: No Hx Cholecystectomy: No Hx Genitourinary Surgery: No Hx Section: No Hx Orthopedic Surgery: No Anesthesia Reaction: No - PPD History Previous Implant?: Yes Documented Results: Negative w/proof Implanted On Prior [facility] Admission?: Yes Date: 03/08/18 Results: 0 mm PPD to be Administered?: No - Smoking Cessation Smoking history: Current every day smoker Have you smoked in the past 12 months: Yes Aproximately how many cigarettes per day: 20 Hx Chewing Tobacco Use: No Initiated information on smoking cessation: Yes 'Breaking Loose' booklet given: 06/03/18 - Substance & Tx. History Hx Alcohol Use: Yes Hx Substance Use: Yes Substance Use Type: Alcohol, Cocaine, Heroin Hx Substance Use Treatment: Yes ([facility] 02/06/18 to 02/11/18) - Substances Abused Heroin Route: Injection Frequency: Daily Amount used: 04/01 Age of first use: 25 Date of Last Use: 06/02/18 Cocaine Route: Inhalation Frequency: 3-6 times per week Amount used: $300 Age of first use: 21 Date of Last Use: 06/02/18 Alcohol-vodka Route: Oral Frequency: Daily Amount used: 1-3 pts. Age of first use: 16 Date of Last Use: 06/02/18 Family Disease History - Family Disease History Family History: Denies Admission Physical Exam [facility] - Vital Signs Vital Signs: Vital Signs - 24 hr 06/03/18 12:10 Temperature 98.0 F Pulse Rate 95 H Respiratory 18 Rate Blood Pressure 128/72 - Physical General Appearance: Yes: Moderate Distress, Tremorous, Irritable, Sweating, Anxious HEENTM: Yes: [place], Pharynx Normal, Other (redness of right eye conjunctiva stated leave the contact lens for 4 sdays now has been removed no discharge) Respiratory: Yes: Within Normal Limits, Lungs Clear, Normal Breath Sounds Neck: Yes: Within Normal Limits, Supple, Trachea in good position Breast: Yes: Within Normal Limits Cardiology: Yes: Within Normal Limits, Regular Rhythm, Regular Rate, S1, S2 Abdominal: Yes: Within Normal Limits, Normal Bowel Sounds, Non Tender, Soft Genitourinary: Yes: Within Normal Limits Back: Yes: Normal Inspection, Muscle Spasm Musculoskeletal: Yes: full range of Motion, Back pain, Muscle Pain Extremities: Yes: Within Normal Limits, Normal Range of Motion, Tremors, Other ( nicole villasenor right hand for 2 days ,seen at [facility] 2 days ago,was told x ray is negative) 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, Alert, Motor Strength 5/5 Integumentary: Yes: Dry Lymphatic: Yes: Within Normal Limits - Diagnostic (1) Opioid dependence with withdrawal Current Visit: No Status: Acute (2) Alcohol dependence with uncomplicated withdrawal Current Visit: No Status: Acute (3) Cocaine dependence Current Visit: No Status: Chronic (4) Nicotine dependence Current Visit: No Status: Chronic Qualifiers: Nicotine product type: cigarettes (5) Weight loss Current Visit: Yes Status: Acute (6) Lip dryness Current Visit: Yes Status: Acute (7) Dehydration Current Visit: Yes Status: Acute (8) Contusion of right hand Current Visit: Yes Status: Acute Cleared for Admission [facility] - Detox or Rehab [facility] Level of Care: Medically Managed Detox Regimen/Protocol: Methadone/Valium [facility] Breath Alcohol Content Breath Alcohol Content: 0 Urine Drug Screen - Results Drug Screen Negative: No Urine Drug Screen Results: THC-Marijuana, JAGRUTI-Cocaine, OPI-Opiates, AMP- Amphetamines, MET-Methamphetamine, BZO-Benzodiazepines
[2018-06-03] MEDS ORDERED: MAG HYDROX/AL HYDROX/SIMETH 30 ML UNIT-DOSE CUP PO PRN (13:35)
[2018-06-03] MEDS ORDERED: NICOTINE POLACRILEX 2 MG GUM BC PRN (13:35)
[2018-06-03] MEDS ORDERED: MAGNESIUM HYDROX 2400MG/30ML ORAL SUSPENSION 30 ML CUP PO PRN (13:35)
[2018-06-03] MEDS ORDERED: ACETAMINOPHEN 325 MG TABLET (FP) PO PRN (13:35)
[2018-06-03] MEDS ORDERED: LOPERAMIDE HCL 2 MG CAPSULE PO PRN (13:35)
[2018-06-03] MEDS ORDERED: IBUPROFEN 400 MG TABLET (FP) PO PRN (13:35)
[2018-06-03] MEDS ORDERED: guaiFENesin/D-METHORPHAN HB 10 ML UNIT-DOSE CUPS PO PRN (13:35)
[2018-06-03] MEDS ORDERED: P-EPHED 60MG/TRIPROLIDI 2.5MG TABLET PO PRN (13:35)
[2018-06-03] MEDS ORDERED: MAGNESIUM CITRATE 300 ML BOTTLE PO PRN (13:35)
[2018-06-03] MEDS ORDERED: MENTHOL/PHENOL 1 EACH UD MM PRN (13:35)
[2018-06-03] MEDS ORDERED: METHADONE HCL 10 MG TABLET (FOR DETOX USE ONLY) PO ONE ×2 (14:15→23:00)
[2018-06-03] MEDS ORDERED: diazePAM 5 MG TABLET PO ONE (14:15)
[2018-06-03] MEDS: NICOTINE 21 MG/24 HOURS TOPICAL PATCH TD SCH (15:12)
[2018-06-03] MEDS: VITAMINS A AND D TOPICAL OINTMENT 60 GM TUBE TP SCH (18:29)
[2018-06-03 18:41] LABS: URINE APPEARANCE CLEAR; URINE BILIRUBIN NEGATIVE (<2.0 mg/dL); URINE COLOR YELLOW; URINE GLUCOSE (UA) NEGATIVE (NEGATIVE); URINE KETONE 2+ (NEGATIVE); URINE LEUK ESTERASE NEGATIVE (NEGATIVE); URINE NITRITE NEGATIVE (NEGATIVE); URINE PROTEIN NEGATIVE (NEGATIVE)
[2018-06-03] MEDS: diazePAM 5 MG TABLET PO PRN (19:52)
[2018-06-03] MEDS ORDERED: MELATONIN 5 MG TABLETS PO PRN (22:00)
[2018-06-03] MEDS: THIAMINE HCL 100 MG TABLET (FP) PO SCH (22:13)
[2018-06-03] MEDS: diazePAM 5 MG TABLET PO SCH (22:13)
[2018-06-03] MEDS: cloNIDine HCL 0.1 MG TABLET PO SCH (22:13)
[2018-06-04] MEDS: VITAMINS A AND D TOPICAL OINTMENT 60 GM TUBE TP SCH ×5 (05:43→23:25)
[2018-06-04] MEDS: diazePAM 5 MG TABLET PO SCH ×3 (05:43→23:25)
[2018-06-04] MEDS: cloNIDine HCL 0.1 MG TABLET PO SCH ×2 (09:33→23:25)
[2018-06-04] MEDS: diazePAM 5 MG TABLET PO PRN ×3 (09:33→21:43)
[2018-06-04] MEDS: NICOTINE 21 MG/24 HOURS TOPICAL PATCH TD SCH (09:33)
[2018-06-04] MEDS: PRENATAL VITAMINS W/ FOLIC ACID TABLET (FP) PO SCH (09:33)
[2018-06-04] MEDS ORDERED: METHADONE HCL 10 MG TABLET (FOR DETOX USE ONLY) PO SCH (10:00)
--- NOTE | 2018-06-04 10:18 | PN ---
[facility] CIWA - CIWA Score Nausea/Vomitin-No Nausea/No Vomiting Muscle Tremors: 4-Moderate,w/Arms Extend Anxiety: 3 Agitation: 3 Paroxysmal Sweats: 3 Orientation: 0-Oriented Tacttile Disturbances: 0-None Auditory Disturbances: 0-None Visual Disturbances: 0-None Headache: 0-None Present CIWA-Ar Total Score: 13 BHS COWS - Scale Resting Pulse: 1= [place] 81-100 Sweatin=Flushed/Facial Moisture Restless Observation: 1= Difficult to Sit Still Pupil Size: 0= Normal to Room Light Bone or Joint Aches: 2= Severe Diffuse Aches Runny Nose/ Eye Tearin= Runny Nose/Eyes GI Upset > 30mins: 1= Stomach Cramp Tremor Observation of Outstretched Hands: 2= Slight Tremor Visible Yawning Observation: 2= >3x During Session Anxiety or Irritability: 2=Irritable/Anxious Goose Flesh Skin: 0=Smooth Skin COWS Score: 15 S Progress Note (SOAP) Subjective: shakes sweats body aches interrupted sleep irritable right hand swelling anxiety Objective: 06/04/18 10:16 Vital Signs Temperature 98.1 F 06/04/18 09:24 Pulse Rate 100 H 06/04/18 09:24 Respiratory Rate 16 06/04/18 09:24 Blood Pressure 113/58 L 06/04/18 09:24 O2 Sat by Pulse Oximetry (%) Laboratory Tests 06/03/18 15:33 Urine Color Yellow Urine Appearance Clear Urine pH 5.0 D Ur Specific [place] 1.025 Urine Protein Negative Urine Glucose (UA) Negative Urine Ketones 2+ H Urine Blood Negative Urine Nitrite Negative Urine Bilirubin Negative Urine Urobilinogen 2.0 Ur Leukocyte Esterase Negative rest of labs pending aaox3 ambulating no acute distress Assessment: 06/04/18 10:17 withdrawal sx Plan: continue detox increase fluids noe bandage motrin prn
[2018-06-04 10:24] LABS: HEMATOCRIT 41.6 % (35.4-49); HEMOGLOBIN 13.5 GM/dL (11.7-16.9); MCH 28.6 pg (25.7-33.7); MCHC 32.5 g/dl (32.0-35.9); MEAN CELL VOLUME 87.9 fl (80-96); MEAN PLT VOLUME 9.7 fl (7.5-11.1); PLATELET COUNT 170 K/MM3 (134-434); RBC 4.74 M/mm3 (4.00-5.60); RDW 13.4 % (11.9-15.9); WHITE BLOOD COUNT 12.4 K/mm3 (4.0-10.0)
[2018-06-04 10:56] LABS: ALBUMIN 3.6 g/dl (3.4-5.0); ALK PHOS 73 U/L (45-117); ANION GAP 8 MMOL/L (8-16); BILIRUBIN,TOTAL 1.6 mg/dL (0.2-1); BLOOD UREA NITROGEN 12 mg/dL (7-18); CALCIUM 8.2 mg/dL (8.5-10.1); CHLORIDE 100 mmol/L (98-107); CO2 28 mmol/L (21-32); GLUCOSE,RANDOM 108 mg/dL (74-106); POTASSIUM 3.2 mmol/L (3.5-5.1); SGOT/AST 132 U/L (15-37); SGPT/ALT 141 U/L (13-61); SODIUM 136 mmol/L (136-145); TOT PROT 6.8 g/dl (6.4-8.2)
[2018-06-04] MEDS: THIAMINE HCL 100 MG TABLET (FP) PO SCH (23:25)
[2018-06-05] MEDS: VITAMINS A AND D TOPICAL OINTMENT 60 GM TUBE TP SCH ×3 (05:48→20:03)
[2018-06-05] MEDS: diazePAM 5 MG TABLET PO PRN ×3 (05:49→21:08)
[2018-06-05] MEDS: NICOTINE 21 MG/24 HOURS TOPICAL PATCH TD SCH (09:51)
[2018-06-05] MEDS: diazePAM 5 MG TABLET PO SCH ×2 (09:52→22:26)
[2018-06-05] MEDS: METHADONE HCL 5 MG TABLET (FOR DETOX USE ONLY) PO SCH (09:52)
[2018-06-05] MEDS: PRENATAL VITAMINS W/ FOLIC ACID TABLET (FP) PO SCH (09:52)
[2018-06-05] MEDS: cloNIDine HCL 0.1 MG TABLET PO SCH (09:56)
--- NOTE | 2018-06-05 12:22 | PN ---
[facility] CIWA - CIWA Score Nausea/Vomitin-Int. Nausea w/Dry Heave Agitation: 1-Slight > Activity Paroxysmal Sweats: 2 Orientation: 0-Oriented Tacttile Disturbances: 0-None Auditory Disturbances: 0-None Visual Disturbances: 0-None Headache: 0-None Present S COWS - Scale Resting Pulse: 0= [place] 80 or Below Sweatin= Chills/Flushing Restless Observation: 1= Difficult to Sit Still Pupil Size: 1= Pupils >than Normal Bone or Joint Aches: 1= Mild Discomfort Runny Nose/ Eye Tearin= Nasal Congestion GI Upset > 30mins: 2= Nausea/Diarrhea Tremor Observation of Outstretched Hands: 1= Tremor [place], Not Seen Yawning Observation: 0= None Anxiety or Irritability: 1=Feels Anxious/Irritable Goose Flesh Skin: 0=Smooth Skin COWS Score: 9 [facility] Progress Note (SOAP) Subjective: interrupted sleep, sweats, nausea, vomiting x 1 Objective: 06/05/18 12:20 Vital Signs Temperature 97.3 F L 06/05/18 09:13 Pulse Rate 84 06/05/18 09:13 Respiratory Rate 18 06/05/18 09:13 Blood Pressure 116/55 L 06/05/18 09:13 O2 Sat by Pulse Oximetry (%) Laboratory Tests 06/03/18 06/04/18 06/04/18 15:33 05:45 05:45 WBC 12.4 H RBC 4.74 Hgb 13.5 Hct 41.6 MCV 87.9 MCH 28.6 MCHC 32.5 RDW 13.4 Plt Count 170 MPV 9.7 Sodium 136 Potassium 3.2 L Chloride 100 Carbon Dioxide 28 Anion Gap 8 BUN 12 Creatinine 1.0 Creat Clearance w eGFR > 60 Random Glucose 108 H Calcium 8.2 L Total Bilirubin 1.6 H AST 132 H ALT 141 H Alkaline Phosphatase 73 Total Protein 6.8 Albumin 3.6 Urine Color Yellow Urine Appearance Clear Urine pH 5.0 D Ur Specific [place] 1.025 Urine Protein Negative Urine Glucose (UA) Negative Urine Ketones 2+ H Urine Blood Negative Urine Nitrite Negative Urine Bilirubin Negative Urine Urobilinogen 2.0 Ur Leukocyte Esterase Negative RPR Titer 06/04/18 05:45 WBC RBC Hgb Hct MCV MCH MCHC RDW Plt Count MPV Sodium Potassium Chloride Carbon Dioxide Anion Gap BUN Creatinine Creat Clearance w eGFR Random Glucose Calcium Total Bilirubin AST ALT Alkaline Phosphatase Total Protein Albumin Urine Color Urine Appearance Urine pH Ur Specific [place] Urine Protein Urine Glucose (UA) Urine Ketones Urine Blood Urine Nitrite Urine Bilirubin Urine Urobilinogen Ur Leukocyte Esterase RPR Titer Nonreactive pt aox3 lying in bed in nad Assessment: 06/05/18 12:21 withdrawal sx's hypokalemia elevated wbc Plan: cont. detox increase fluids kcl 40meg bid repeat cbc
[2018-06-05] MEDS: POTASSIUM CHLORIDE ORAL LIQUID 20 MEQ/15 ML PO SCH ×2 (13:46→22:26)
[2018-06-05] MEDS: CYCLOBENZAPRINE HCL 10 MG TABLET (FP) PO PRN (14:55)
[2018-06-05] MEDS: THIAMINE HCL 100 MG TABLET (FP) PO SCH (22:26)
[2018-06-06] MEDS: VITAMINS A AND D TOPICAL OINTMENT 60 GM TUBE TP SCH (06:25)
[2018-06-06] MEDS: diazePAM 5 MG TABLET PO PRN (08:24)
[2018-06-06] MEDS: PRENATAL VITAMINS W/ FOLIC ACID TABLET (FP) PO SCH (10:08)
[2018-06-06] MEDS: NICOTINE 21 MG/24 HOURS TOPICAL PATCH TD SCH (10:08)
[2018-06-06] MEDS: METHADONE HCL 5 MG TABLET (FOR DETOX USE ONLY) PO SCH (10:08)
[2018-06-06] MEDS: diazePAM 5 MG TABLET PO SCH ×2 (10:08→22:03)
[2018-06-06] MEDS: POTASSIUM CHLORIDE ORAL LIQUID 20 MEQ/15 ML PO SCH (10:09)
[2018-06-06 10:19] LABS: BASO % 0.7 % (0-2.0); EOS % 5.3 % (0-4.5); HEMATOCRIT 43.3 % (35.4-49); HEMOGLOBIN 14.9 GM/dL (11.7-16.9); LYMPH % 31.3 % (8-40); MCH 30.5 pg (25.7-33.7); MCHC 34.3 g/dl (32.0-35.9); MEAN CELL VOLUME 88.9 fl (80-96); MEAN PLT VOLUME 8.8 fl (7.5-11.1); MONO % 9.6 % (3.8-10.2); NEUT % 53.1 % (42.8-82.8); PLATELET COUNT 187 K/MM3 (134-434); RBC 4.87 M/mm3 (4.00-5.60)
[2018-06-06 10:31] LABS: ANION GAP 6 MMOL/L (8-16); BLOOD UREA NITROGEN 13 mg/dL (7-18); CALCIUM 8.2 mg/dL (8.5-10.1); CHLORIDE 105 mmol/L (98-107); CO2 30 mmol/L (21-32); CREATININE 0.8 mg/dL (0.55-1.3); GLUCOSE,RANDOM 86 mg/dL (74-106); POTASSIUM 4.1 mmol/L (3.5-5.1); SODIUM 141 mmol/L (136-145)
--- NOTE | 2018-06-06 11:53 | PN ---
[facility] Progress Note (SOAP) Subjective: anxiety sweats irritable interrupted sleep Objective: 06/06/18 11:52 Vital Signs Temperature 98.2 F 06/06/18 09:17 Pulse Rate 86 06/06/18 09:17 Respiratory Rate 18 06/06/18 09:17 Blood Pressure 112/50 L 06/06/18 09:17 O2 Sat by Pulse Oximetry (%) aaox3 ambulating no acute distress Assessment: 06/06/18 11:53 withdrawal sx Plan: continue detox increase fluids
[2018-06-06] MEDS: hydrOXYzine PAMOATE 25 MG CAPSULE (FP) PO PRN ×2 (14:26→22:03)
[2018-06-06] MEDS: THIAMINE HCL 100 MG TABLET (FP) PO SCH (22:03)
[2018-06-06] MEDS: CYCLOBENZAPRINE HCL 10 MG TABLET (FP) PO PRN (22:03)
[2018-06-07] MEDS: VITAMINS A AND D TOPICAL OINTMENT 60 GM TUBE TP SCH ×2 (06:17→10:19)
[2018-06-07 09:09] VITALS: BP 112/98; PULSE 115; TEMP 97.9
[2018-06-07] MEDS ORDERED: diazePAM 5 MG TABLET PO SCH (10:00)
[2018-06-07] MEDS ORDERED: METHADONE HCL 10 MG TABLET (FOR DETOX USE ONLY) PO SCH (10:00)
[2018-06-07] MEDS: PRENATAL VITAMINS W/ FOLIC ACID TABLET (FP) PO SCH (10:18)
[2018-06-07] MEDS: NICOTINE 21 MG/24 HOURS TOPICAL PATCH TD SCH (10:19)
--- NOTE | 2018-06-07 12:00 | DS ---
[facility] Detox Discharge Summary Admission Date: 06/03/18 Discharge Date: 06/07/18 - History Present History: Alcohol Dependence, Cocaine Dependence, Opioid Dependence, Sedative Dependence - Physical Exam Results Vital Signs: Vital Signs Temperature 97.9 F 06/07/18 09:09 Pulse Rate 115 H 06/07/18 09:09 Respiratory Rate 18 06/07/18 09:09 Blood Pressure 112/98 06/07/18 09:09 O2 Sat by Pulse Oximetry (%) - Treatment Hospital Course: Detox Protocol Followed - Medication Discharge Medications: Ambulatory Orders NK [No Known Home Medication] 03/06/18 - AMA Did Patient Leave Against Medical Advice: Yes (involuntary d/c- pt was threathening staff, not following [facility] policies )
[2018-06-08] MEDS ORDERED: METHADONE HCL 5 MG TABLET (FOR DETOX USE ONLY) PO SCH (06:00)
== END 2018-06-07 11:45 | disposition left against medical advice (07) | DRG 774 ==
LOC: YASAS 11:34 → Y6N 13:35
PROC: HZ2ZZZZ Detoxification Services for Substance Abuse Treatment (ICD-10-PCS; principal; 2018-06-03)
DX: F10.230 Alcohol dependence with withdrawal, uncomplicated (principal); F13.230 Sedative, hypnotic or anxiolytic dependence with withdrawal, uncomplicated; F14.20 Cocaine dependence, uncomplicated; F17.210 Nicotine dependence, cigarettes, uncomplicated; F91.8 Other conduct disorders; E87.6 Hypokalemia; D72.829 Elevated white blood cell count, unspecified; E86.0 Dehydration; L98.8 Other specified disorders of the skin and subcutaneous tissue; S60.221D Contusion of right hand, subsequent encounter; X58.XXXD Exposure to other specified factors, subsequent encounter; Z91.19 Patient's noncompliance with other medical treatment and regimen
CPT/HCPCS: 36415; 80048; 80053; 81003; 85025; 85027; 86593; J0735

== ENCOUNTER 2018-07-23 15:40 | Inpatient (IN) | payer OTHER ==
[2018-07-23 17:29] VITALS: BMI 26.6
--- NOTE | 2018-07-23 20:07 | HP ---
COWS - Scale Resting Pulse: 2= PA 101-120 Sweatin=Flushed/Facial Moisture Restless Observation: 3= Extraneous Movement Pupil Size: 1= Pupils >than Normal Bone or Joint Aches: 1= Mild Discomfort Runny Nose/ Eye Tearin= Runny Nose/Eyes GI Upset > 30mins: 2= Nausea/Diarrhea Tremor Observation: 2= Slight Tremor Visible Yawning Observation: 1= 1-2x During Session Anxiety or Irritability: 2=Irritable/Anxious Goose Flesh Skin: 0=Smooth Skin COWS Score: 18 CIWA Score Nausea/Vomitin Muscle Tremors: 2 Anxiety: 3 Agitation: 4-Moderately Restless Paroxysmal Sweats: 3 Orientation: 0-Oriented Tacttile Disturbances: 0-None Auditory Disturbances: 0-None Visual Disturbances: 0-None Headache: 0-None Present CIWA-Ar Total Score: 15 - Admission Criteria OASAS Guidelines: Admission for Medically Managed Detox: Requires at least one of the followin. CIWA greater than 12 2. Seizures within the past 24 hours 3. Delirium tremens within the past 24 hours 4. Hallucinations within the past 24 hours 5. Acute intervention needed for co occurring medical disorder 6. Acute intervention needed for co occurring psychiatric disorder 7. Severe withdrawal that cannot be handled at a lower level of care (continued vomiting, continued diarrhea, abnormal vital signs) requiring intravenous medication and/or fluids 8. Admission ROS [facility] - [facility] Chief Complaint: " I am here for detox" Allergies/Adverse Reactions: Allergies Allergy/AdvReac Type Severity Reaction Status Date / Time chlordiazepoxide Allergy Severe Difficulty Verified 06/03/18 14:01 [From Librium] Breathing History of Present Illness: 28 yo male with hx of heroin (IV), crack / cocaine and alcohol dependence is here seeking detox, this is one of multiple admissions. Last detox [facility] May 2018. Reports overdose x 2, last episode 1.5 years ago. Denies any hx of seizures or blackouts. Exam Limitations: No Limitations - Ebola screening Have you traveled outside of the country in the last 21 days: No Have you had contact with anyone from an Ebola affected area: No Have you been sick,other than usual withdrawal symptoms: No - Review of Systems Constitutional: Chills, Loss of Appetite, Unexplained wgt Loss (20 lbs in past month) EENT: reports: No Symptoms Reported Respiratory: reports: No Symptoms reported Cardiac: reports: No Symptoms Reported GI: reports: Nausea, Poor Appetite, Poor Fluid Intake, Abdominal cramping : reports: No Symptoms Reported Musculoskeletal: reports: Back Pain Integumentary: reports: No Symptoms Reported Neuro: reports: No Symptoms reported Endocrine: reports: Flushing, Increased Thirst Hematology: reports: No Symptoms Reported Psychiatric: reports: Orientated x3, Anxious Other Systems: Reviewed and Negative Patient History - Patient Medical History Hx Anemia: No Hx Asthma: No Hx Chronic Obstructive Pulmonary Disease (COPD): No Hx Cancer: No Hx Cardiac Disorders: No Hx Congestive Heart Failure: No Hx Hypertension: No Hx Hypercholesterolemia: No Hx Pacemaker: No HX Cerebrovascular Accident: No Hx Seizures: No Hx Dementia: No Hx Diabetes: No Hx Gastrointestinal Disorders: No Hx Liver Disease: No Hx Genitourinary Disorders: No Hx Sexually Transmitted Disorders: No Hx Renal Disease (ESRD): No Hx Thyroid Disease: No Hx Human Immunodeficiency Virus (HIV): No (last 04/18/18 negative) Hx Hepatitis C: No Hx Depression: No Hx Suicide Attempt: No Hx Bipolar Disorder: No Hx Schizophrenia: No - Patient Surgical History Past Surgical History: No Hx Neurologic Surgery: No Hx Cataract Extraction: No Hx Cardiac Surgery: No Hx Lung Surgery: No Hx Breast Surgery: No Hx Breast Biopsy: No Hx Abdominal Surgery: No Hx Appendectomy: No Hx Cholecystectomy: No Hx Genitourinary Surgery: No Hx Section: No Hx Orthopedic Surgery: No Anesthesia Reaction: No - PPD History Date: 03/08/18 Results: 0 mm PPD to be Administered?: No - Smoking Cessation Smoking history: Current every day smoker Have you smoked in the past 12 months: Yes Aproximately how many cigarettes per day: 20 Hx Chewing Tobacco Use: No Initiated information on smoking cessation: Yes 'Breaking Loose' booklet given: 07/23/18 - Substance & Tx. History Hx Alcohol Use: Yes Hx Substance Use: Yes Substance Use Type: Alcohol, Cocaine, Heroin Hx Substance Use Treatment: Yes (Last detox [facility] May 2018.) - Substances Abused Heroin Route: Injection Frequency: Daily Amount used: 15 -20 bags Age of first use: 25 Date of Last Use: 07/23/18 (2AM) Cocaine Route: Injection Frequency: Daily Amount used: 7 grams Age of first use: 21 Date of Last Use: 07/22/18 Alcohol Route: Oral Frequency: Daily Amount used: 1 pint Age of first use: 20 Date of Last Use: 07/22/18 Family Disease History - Family Disease History Family History: Unable to Obtain (adopted) Admission Physical Exam [facility] - Vital Signs Vital Signs: Vital Signs - 24 hr 07/23/18 17:28 Temperature 98.9 F Pulse Rate 102 H Respiratory 18 Rate Blood Pressure 130/71 - Physical General Appearance: Yes: Disheveled, Moderate Distress, Sweating, Anxious HEENTM: Yes: Hearing grossly Normal, Normal ENT Inspection, Normocephalic, Normal Voice, [place], Pharynx Normal, Rhinorrhea Respiratory: Yes: Chest Non-Tender, Lungs Clear, Normal Breath Sounds, No Respiratory Distress, No Accessory Muscle Use Neck: Yes: Within Normal Limits Breast: Yes: Breast Exam Deferred Cardiology: Yes: Regular Rhythm, Regular Rate Abdominal: Yes: Normal Bowel Sounds, Non Tender, Flat, Soft Genitourinary: Yes: Within Normal Limits Back: Yes: Normal Inspection Musculoskeletal: Yes: full range of Motion, Gait Steady, Pelvis Stable, Back pain Extremities: Yes: Normal Capillary Refill, Normal Inspection, Normal Range of Motion, Tremors Neurological: Yes: land economist II-XII NML intact, Fully Oriented, Alert, Motor Strength 5/5, Depressed Affect Integumentary: Yes: Normal Color, Warm, Diaphoresis Lymphatic: Yes: Within Normal Limits - Addiitonal Findings: Patient reports hx of allergies to librium but has taken valium with no reaction in the past. - Diagnostic (1) Opioid dependence with withdrawal Current Visit: Yes Status: Acute (2) Alcohol dependence with uncomplicated withdrawal Current Visit: Yes Status: Chronic (3) Cocaine dependence Current Visit: Yes Status: Chronic Qualifiers: Substance use status: uncomplicated Qualified Code(s): F14.20 - Cocaine dependence, uncomplicated (4) Nicotine dependence Current Visit: Yes Status: Chronic Qualifiers: Nicotine product type: cigarettes (5) IV drug user Current Visit: Yes Status: Acute Cleared for Admission [facility] - Detox or Rehab [facility] Level of Care: Medically Managed Detox Regimen/Protocol: Methadone/Valium [facility] Breath Alcohol Content Breath Alcohol Content: 0 Urine Drug Screen - Results Drug Screen Negative: No Urine Drug Screen Results: THC-Marijuana, JAGRUTI-Cocaine, OPI-Opiates
[2018-07-23] MEDS ORDERED: LOPERAMIDE HCL 2 MG CAPSULE PO PRN (20:15)
[2018-07-23] MEDS ORDERED: MAG HYDROX/AL HYDROX/SIMETH 30 ML UNIT-DOSE CUP PO PRN (20:15)
[2018-07-23] MEDS ORDERED: IBUPROFEN 400 MG TABLET (FP) PO PRN (20:15)
[2018-07-23] MEDS ORDERED: MENTHOL/PHENOL 1 EACH UD MM PRN (20:15)
[2018-07-23] MEDS ORDERED: MAGNESIUM HYDROX 2400MG/30ML ORAL SUSPENSION 30 ML CUP PO PRN (20:15)
[2018-07-23] MEDS ORDERED: NICOTINE POLACRILEX 2 MG GUM BC PRN (20:15)
[2018-07-23] MEDS ORDERED: guaiFENesin/D-METHORPHAN HB 10 ML UNIT-DOSE CUPS PO PRN (20:15)
[2018-07-23] MEDS ORDERED: P-EPHED 60MG/TRIPROLIDI 2.5MG TABLET PO PRN (20:15)
[2018-07-23] MEDS ORDERED: MAGNESIUM CITRATE 300 ML BOTTLE PO PRN (20:15)
[2018-07-23] MEDS ORDERED: ACETAMINOPHEN 325 MG TABLET (FP) PO PRN (20:15)
[2018-07-23] MEDS ORDERED: MELATONIN 5 MG TABLETS PO PRN (22:00)
[2018-07-23] MEDS ORDERED: METHADONE HCL 10 MG TABLET (FOR DETOX USE ONLY) PO ONE ×2 (22:30→23:00)
[2018-07-23] MEDS ORDERED: diazePAM 5 MG TABLET PO ONE (22:30)
[2018-07-23] MEDS: THIAMINE HCL 100 MG TABLET (FP) PO SCH (23:06)
[2018-07-23] MEDS: diazePAM 5 MG TABLET PO SCH (23:07)
[2018-07-24] MEDS: diazePAM 5 MG TABLET PO PRN ×3 (04:40→17:53)
[2018-07-24] MEDS: diazePAM 5 MG TABLET PO SCH ×3 (07:00→22:12)
[2018-07-24] MEDS ORDERED: METHADONE HCL 10 MG TABLET (FOR DETOX USE ONLY) PO SCH (10:00)
[2018-07-24 10:02] LABS: HEMATOCRIT 38.5 % (35.4-49); HEMOGLOBIN 13.3 GM/dL (11.7-16.9); MCH 30.7 pg (25.7-33.7); MCHC 34.4 g/dl (32.0-35.9); MEAN CELL VOLUME 89.3 fl (80-96); MEAN PLT VOLUME 8.4 fl (7.5-11.1); PLATELET COUNT 224 K/MM3 (134-434); RBC 4.32 M/mm3 (4.00-5.60); RDW 13.8 % (11.9-15.9); WHITE BLOOD COUNT 6.6 K/mm3 (4.0-10.0)
[2018-07-24] MEDS: NICOTINE 21 MG/24 HOURS TOPICAL PATCH TD SCH (10:09)
[2018-07-24] MEDS: PRENATAL VITAMINS W/ FOLIC ACID TABLET (FP) PO SCH (10:09)
[2018-07-24 11:08] LABS: ALBUMIN 3.1 g/dl (3.4-5.0); ALK PHOS 63 U/L (45-117); ANION GAP 8 MMOL/L (8-16); BILIRUBIN,TOTAL 0.3 mg/dL (0.2-1); BLOOD UREA NITROGEN 15 mg/dL (7-18); CALCIUM 8.1 mg/dL (8.5-10.1); CHLORIDE 104 mmol/L (98-107); CO2 30 mmol/L (21-32); GLUCOSE,RANDOM 110 mg/dL (74-106); POTASSIUM 3.7 mmol/L (3.5-5.1); SGOT/AST 74 U/L (15-37); SGPT/ALT 89 U/L (13-61); SODIUM 142 mmol/L (136-145); TOT PROT 6.3 g/dl (6.4-8.2)
--- NOTE | 2018-07-24 14:07 | PN ---
[facility] CIWA - CIWA Score Nausea/Vomitin-Mild Nausea/No Vomiting Muscle Tremors: 4-Moderate,w/Arms Extend Anxiety: 2 Agitation: 3 Paroxysmal Sweats: 1-Minimal Palms Moist Orientation: 1-Uncertain about Date Tacttile Disturbances: 0-None Auditory Disturbances: 0-None Visual Disturbances: 0-None Headache: 2-Mild CIWA-Ar Total Score: 14 [facility] COWS - Scale Resting Pulse: 0= PA 80 or Below Sweatin= Chills/Flushing Restless Observation: 0= Sits Still Pupil Size: 0= Normal to Room Light Bone or Joint Aches: 2= Severe Diffuse Aches Runny Nose/ Eye Tearin= Runny Nose/Eyes GI Upset > 30mins: 2= Nausea/Diarrhea Tremor Observation of Outstretched Hands: 2= Slight Tremor Visible Yawning Observation: 1= 1-2x During Session Anxiety or Irritability: 1=Feels Anxious/Irritable Goose Flesh Skin: 0=Smooth Skin COWS Score: 11 [facility] Progress Note (SOAP) Subjective: body aches joints pain gi distress muscle cramping tremor sweating Objective: 07/24/18 14:06 Vital Signs Temperature 97.0 F L 07/24/18 13:31 Pulse Rate 91 H 07/24/18 13:31 Respiratory Rate 18 07/24/18 13:31 Blood Pressure 123/65 07/24/18 13:31 O2 Sat by Pulse Oximetry (%) Laboratory Last Values WBC 6.6 K/mm3 (4.0-10.0) 07/24/18 07:00 RBC 4.32 M/mm3 (4.00-5.60) 07/24/18 07:00 Hgb 13.3 GM/dL (11.7-16.9) 07/24/18 07:00 Hct 38.5 % (35.4-49) 07/24/18 07:00 MCV 89.3 fl (80-96) 07/24/18 07:00 MCH 30.7 pg (25.7-33.7) 07/24/18 07:00 MCHC 34.4 g/dl (32.0-35.9) 07/24/18 07:00 RDW 13.8 % (11.9-15.9) 07/24/18 07:00 Plt Count 224 K/MM3 (134-434) 07/24/18 07:00 MPV 8.4 fl (7.5-11.1) 07/24/18 07:00 Sodium 142 mmol/L (136-145) 07/24/18 07:00 Potassium 3.7 mmol/L (3.5-5.1) 07/24/18 07:00 Chloride 104 mmol/L (98-107) 07/24/18 07:00 Carbon Dioxide 30 mmol/L (21-32) 07/24/18 07:00 Anion Gap 8 MMOL/L (8-16) 07/24/18 07:00 BUN 15 mg/dL (7-18) 07/24/18 07:00 Creatinine 1.0 mg/dL (0.55-1.3) 07/24/18 07:00 Creat Clearance w eGFR > 60 (>60) 07/24/18 07:00 Random Glucose 110 mg/dL (74-106) H 07/24/18 07:00 Calcium 8.1 mg/dL (8.5-10.1) L 07/24/18 07:00 Total Bilirubin 0.3 mg/dL (0.2-1) 07/24/18 07:00 AST 74 U/L (15-37) H 07/24/18 07:00 ALT 89 U/L (13-61) H 07/24/18 07:00 Alkaline Phosphatase 63 U/L (45-117) 07/24/18 07:00 Total Protein 6.3 g/dl (6.4-8.2) L 07/24/18 07:00 Albumin 3.1 g/dl (3.4-5.0) L 07/24/18 07:00 lab noted Assessment: 07/24/18 14:07 alcohol and opiate withdrawal sx Plan: continue detox
[2018-07-24] MEDS: THIAMINE HCL 100 MG TABLET (FP) PO SCH (22:12)
[2018-07-25] MEDS: diazePAM 5 MG TABLET PO PRN ×3 (07:33→20:03)
[2018-07-25] MEDS: METHADONE HCL 5 MG TABLET (FOR DETOX USE ONLY) PO SCH (10:53)
[2018-07-25] MEDS: diazePAM 5 MG TABLET PO SCH ×2 (10:54→23:24)
[2018-07-25] MEDS: NICOTINE 21 MG/24 HOURS TOPICAL PATCH TD SCH (10:55)
[2018-07-25] MEDS: PRENATAL VITAMINS W/ FOLIC ACID TABLET (FP) PO SCH (10:55)
--- NOTE | 2018-07-25 14:46 | PN ---
S CIWA - CIWA Score Nausea/Vomitin-No Nausea/No Vomiting Muscle Tremors: 3 Anxiety: 2 Agitation: 2 Paroxysmal Sweats: 1-Minimal Palms Moist Orientation: 1-Uncertain about Date Tacttile Disturbances: 1-Very Mild Itch/Numbness Auditory Disturbances: 0-None Visual Disturbances: 0-None Headache: 2-Mild CIWA-Ar Total Score: 12 [facility] COWS - Scale Resting Pulse: 0= IN 80 or Below Sweatin= Chills/Flushing Restless Observation: 0= Sits Still Pupil Size: 0= Normal to Room Light Bone or Joint Aches: 1= Mild Discomfort Runny Nose/ Eye Tearin= Nasal Congestion GI Upset > 30mins: 1= Stomach Cramp Tremor Observation of Outstretched Hands: 2= Slight Tremor Visible Yawning Observation: 1= 1-2x During Session Anxiety or Irritability: 1=Feels Anxious/Irritable Goose Flesh Skin: 0=Smooth Skin COWS Score: 8 S Progress Note (SOAP) Subjective: dry skin itching skin tremor sweating Objective: 07/25/18 14:44 Vital Signs Temperature 97.3 F L 07/25/18 09:17 Pulse Rate 84 07/25/18 09:17 Respiratory Rate 18 07/25/18 09:17 Blood Pressure 107/60 07/25/18 09:17 O2 Sat by Pulse Oximetry (%) Laboratory Last Values WBC 6.6 K/mm3 (4.0-10.0) 07/24/18 07:00 RBC 4.32 M/mm3 (4.00-5.60) 07/24/18 07:00 Hgb 13.3 GM/dL (11.7-16.9) 07/24/18 07:00 Hct 38.5 % (35.4-49) 07/24/18 07:00 MCV 89.3 fl (80-96) 07/24/18 07:00 MCH 30.7 pg (25.7-33.7) 07/24/18 07:00 MCHC 34.4 g/dl (32.0-35.9) 07/24/18 07:00 RDW 13.8 % (11.9-15.9) 07/24/18 07:00 Plt Count 224 K/MM3 (134-434) 07/24/18 07:00 MPV 8.4 fl (7.5-11.1) 07/24/18 07:00 Sodium 142 mmol/L (136-145) 07/24/18 07:00 Potassium 3.7 mmol/L (3.5-5.1) 07/24/18 07:00 Chloride 104 mmol/L (98-107) 07/24/18 07:00 Carbon Dioxide 30 mmol/L (21-32) 07/24/18 07:00 Anion Gap 8 MMOL/L (8-16) 07/24/18 07:00 BUN 15 mg/dL (7-18) 07/24/18 07:00 Creatinine 1.0 mg/dL (0.55-1.3) 07/24/18 07:00 Creat Clearance w eGFR > 60 (>60) 07/24/18 07:00 Random Glucose 110 mg/dL (74-106) H 07/24/18 07:00 Calcium 8.1 mg/dL (8.5-10.1) L 07/24/18 07:00 Total Bilirubin 0.3 mg/dL (0.2-1) 07/24/18 07:00 AST 74 U/L (15-37) H 07/24/18 07:00 ALT 89 U/L (13-61) H 07/24/18 07:00 Alkaline Phosphatase 63 U/L (45-117) 07/24/18 07:00 Total Protein 6.3 g/dl (6.4-8.2) L 07/24/18 07:00 Albumin 3.1 g/dl (3.4-5.0) L 07/24/18 07:00 RPR Titer Nonreactive (NONREACTIVE) 07/24/18 07:00 lab noed low calcium Assessment: 07/25/18 14:46 withdrawal sx Plan: continue detox
[2018-07-25] MEDS: CALCIUM 250MG/VIT-D 125 UNITS 1 COMBO TABLET PO SCH ×2 (16:17→23:24)
[2018-07-25] MEDS: MINERAL OIL/PETROLAT/WATER TOPICAL CREAM 454 GM JAR TP SCH (16:17)
[2018-07-25] MEDS: THIAMINE HCL 100 MG TABLET (FP) PO SCH (23:24)
[2018-07-26] MEDS: diazePAM 5 MG TABLET PO PRN ×4 (05:22→20:15)
[2018-07-26] MEDS: PRENATAL VITAMINS W/ FOLIC ACID TABLET (FP) PO SCH (09:43)
[2018-07-26] MEDS: diazePAM 5 MG TABLET PO SCH ×2 (09:43→22:07)
[2018-07-26] MEDS: METHADONE HCL 5 MG TABLET (FOR DETOX USE ONLY) PO SCH (09:43)
[2018-07-26] MEDS: CALCIUM 250MG/VIT-D 125 UNITS 1 COMBO TABLET PO SCH ×2 (09:43→22:07)
[2018-07-26] MEDS: NICOTINE 21 MG/24 HOURS TOPICAL PATCH TD SCH (09:44)
[2018-07-26] MEDS: MINERAL OIL/PETROLAT/WATER TOPICAL CREAM 454 GM JAR TP SCH (09:44)
--- NOTE | 2018-07-26 17:45 | PN ---
[facility] Progress Note (SOAP) Subjective: Sweating, Tremors, Body Aches. Objective: PATIENT A & O X 3, OBSERVED AMBULATING ON UNIT. IN NO ACUTE DISTRESS. 07/26/18 17:44 Vital Signs Temperature 97.8 F 07/26/18 13:18 Pulse Rate 82 07/26/18 13:18 Respiratory Rate 20 07/26/18 13:18 Blood Pressure 108/63 07/26/18 13:18 O2 Sat by Pulse Oximetry (%) Laboratory Tests 07/24/18 07/24/18 07/24/18 07:00 07:00 07:00 WBC 6.6 RBC 4.32 Hgb 13.3 Hct 38.5 MCV 89.3 MCH 30.7 MCHC 34.4 RDW 13.8 Plt Count 224 MPV 8.4 Sodium 142 Potassium 3.7 Chloride 104 Carbon Dioxide 30 Anion Gap 8 BUN 15 Creatinine 1.0 Creat Clearance w eGFR > 60 Random Glucose 110 H Calcium 8.1 L Total Bilirubin 0.3 AST 74 H ALT 89 H Alkaline Phosphatase 63 Total Protein 6.3 L Albumin 3.1 L RPR Titer Nonreactive LABS NOTED. Assessment: 07/26/18 17:44 WITHDRAWAL SYMPTOMS. Plan: CONTINUE DETOX.
[2018-07-26] MEDS: THIAMINE HCL 100 MG TABLET (FP) PO SCH (22:07)
[2018-07-26] MEDS ORDERED: BACITRACIN 15 GM TUBE TOPICAL OINTMENT TP PRN (23:39)
[2018-07-27] MEDS ORDERED: METHADONE HCL 10 MG TABLET (FOR DETOX USE ONLY) PO SCH (10:00)
[2018-07-27] MEDS ORDERED: diazePAM 5 MG TABLET PO SCH (10:00)
[2018-07-27] MEDS: MINERAL OIL/PETROLAT/WATER TOPICAL CREAM 454 GM JAR TP SCH (10:29)
[2018-07-27] MEDS: PRENATAL VITAMINS W/ FOLIC ACID TABLET (FP) PO SCH (10:29)
[2018-07-27] MEDS: CALCIUM 250MG/VIT-D 125 UNITS 1 COMBO TABLET PO SCH ×2 (10:30→22:32)
[2018-07-27] MEDS: NICOTINE 21 MG/24 HOURS TOPICAL PATCH TD SCH (10:30)
--- NOTE | 2018-07-27 15:25 | PN ---
S Progress Note (SOAP) Subjective: Patient Denies Any Current Withdrawal / Detox Symptoms and Reports That He Feels Well Overall At This Time. Objective: PATIENT A & O X 2 (UNCERTAIN ABOUT CURRENT DAY / DATE). PATIENT OBSERVED AMBULATING ON UNIT. IN NO ACUTE DISTRESS. 07/27/18 15:23 Vital Signs Temperature 97.9 F 07/27/18 13:28 Pulse Rate 79 07/27/18 13:28 Respiratory Rate 18 07/27/18 13:28 Blood Pressure 137/56 L 07/27/18 13:28 O2 Sat by Pulse Oximetry (%) Laboratory Tests 07/24/18 07/24/18 07/24/18 07:00 07:00 07:00 WBC 6.6 RBC 4.32 Hgb 13.3 Hct 38.5 MCV 89.3 MCH 30.7 MCHC 34.4 RDW 13.8 Plt Count 224 MPV 8.4 Sodium 142 Potassium 3.7 Chloride 104 Carbon Dioxide 30 Anion Gap 8 BUN 15 Creatinine 1.0 Creat Clearance w eGFR > 60 Random Glucose 110 H Calcium 8.1 L Total Bilirubin 0.3 AST 74 H ALT 89 H Alkaline Phosphatase 63 Total Protein 6.3 L Albumin 3.1 L RPR Titer Nonreactive LABS NOTED. Assessment: 07/27/18 15:24 WITHDRAWAL SYMPTOMS. Plan: CONTINUE DETOX. PATIENT SCHEDULED FOR D/C TOMORROW. PATIENT REPORTS THAT HE INTENDS TO GO ON TO [facility] FOR AFTERCARE.
[2018-07-27] MEDS: THIAMINE HCL 100 MG TABLET (FP) PO SCH (22:32)
[2018-07-28] MEDS ORDERED: METHADONE HCL 5 MG TABLET (FOR DETOX USE ONLY) PO SCH (06:00)
[2018-07-28 06:19] VITALS: BP 105/63; PULSE 65; TEMP 97.5
--- NOTE | 2018-07-28 08:44 | DS ---
[facility] Detox Discharge Summary Admission Date: 07/23/18 Discharge Date: 07/28/18 - History Present History: Alcohol Dependence, Opioid Dependence Additional Comments: 28 years old male admitted on 07/23/18 for alcohol and opiate withdrawal stabilization completed detox regimen [facility] discuss medication assisted treatment program - Physical Exam Results Vital Signs: Vital Signs Temperature 97.5 F L 07/28/18 06:19 Pulse Rate 65 07/28/18 06:19 Respiratory Rate 18 07/28/18 06:19 Blood Pressure 105/63 07/28/18 06:19 O2 Sat by Pulse Oximetry (%) Pertinent Admission Physical Exam Findings: alcohol and opiate withdrawal sx Laboratory Last Values WBC 6.6 K/mm3 (4.0-10.0) 07/24/18 07:00 RBC 4.32 M/mm3 (4.00-5.60) 07/24/18 07:00 Hgb 13.3 GM/dL (11.7-16.9) 07/24/18 07:00 Hct 38.5 % (35.4-49) 07/24/18 07:00 MCV 89.3 fl (80-96) 07/24/18 07:00 MCH 30.7 pg (25.7-33.7) 07/24/18 07:00 MCHC 34.4 g/dl (32.0-35.9) 07/24/18 07:00 RDW 13.8 % (11.9-15.9) 07/24/18 07:00 Plt Count 224 K/MM3 (134-434) 07/24/18 07:00 MPV 8.4 fl (7.5-11.1) 07/24/18 07:00 Sodium 142 mmol/L (136-145) 07/24/18 07:00 Potassium 3.7 mmol/L (3.5-5.1) 07/24/18 07:00 Chloride 104 mmol/L (98-107) 07/24/18 07:00 Carbon Dioxide 30 mmol/L (21-32) 07/24/18 07:00 Anion Gap 8 MMOL/L (8-16) 07/24/18 07:00 BUN 15 mg/dL (7-18) 07/24/18 07:00 Creatinine 1.0 mg/dL (0.55-1.3) 07/24/18 07:00 Creat Clearance w eGFR > 60 (>60) 07/24/18 07:00 Random Glucose 110 mg/dL (74-106) H 07/24/18 07:00 Calcium 8.1 mg/dL (8.5-10.1) L 07/24/18 07:00 Total Bilirubin 0.3 mg/dL (0.2-1) 07/24/18 07:00 AST 74 U/L (15-37) H 07/24/18 07:00 ALT 89 U/L (13-61) H 07/24/18 07:00 Alkaline Phosphatase 63 U/L (45-117) 07/24/18 07:00 Total Protein 6.3 g/dl (6.4-8.2) L 07/24/18 07:00 Albumin 3.1 g/dl (3.4-5.0) L 07/24/18 07:00 RPR Titer Nonreactive (NONREACTIVE) 07/24/18 07:00 lab noted - Treatment Hospital Course: Detox Protocol Followed, Detoxed Safely, Responded well, Discharged Condition Good, Rehab Referral Accepted Patient has Accepted a Rehab Referral to: as per counselor arrangement - Medication Discharge Medications: Ambulatory Orders Naloxone HCl [Narcan] 4 mg NS ASDIR PRN #1 spray 07/28/18 - Diagnosis (1) Opioid dependence with withdrawal Status: Acute (2) Uncomplicated sedative, hypnotic or anxiolytic withdrawal Status: Acute (3) Alcohol dependence with uncomplicated withdrawal Status: Acute (4) Nicotine dependence Status: Acute Qualifiers: Nicotine product type: cigarettes Substance use status: in withdrawal Qualified Code(s): F17.213 - Nicotine dependence, cigarettes, with withdrawal - AMA Did Patient Leave Against Medical Advice: No
== END 2018-07-28 08:50 | disposition home or self-care (01) | DRG 773 ==
LOC: YASAS 15:40 → Y3N 21:25
PROVIDERS: ADMIT Surgery; ATTEND Surgery
PROC: HZ2ZZZZ Detoxification Services for Substance Abuse Treatment (ICD-10-PCS; principal; 2018-07-23)
DX: F11.23 Opioid dependence with withdrawal (principal); F10.230 Alcohol dependence with withdrawal, uncomplicated; F13.230 Sedative, hypnotic or anxiolytic dependence with withdrawal, uncomplicated; F14.20 Cocaine dependence, uncomplicated; F17.213 Nicotine dependence, cigarettes, with withdrawal
CPT/HCPCS: 36415; 80053; 85027; 86593

== ENCOUNTER 2018-08-23 13:19 | Inpatient (IN) | payer OTHER ==
[2018-08-23 14:42] VITALS: BMI 26.1
--- NOTE | 2018-08-23 15:26 | HP ---
COWS - Scale Resting Pulse: 0= MA 80 or Below Sweatin=Flushed/Facial Moisture Restless Observation: 1= Difficult to Sit Still Pupil Size: 0= Normal to Room Light Bone or Joint Aches: 2= Severe Diffuse Aches Runny Nose/ Eye Tearin= Runny Nose/Eyes GI Upset > 30mins: 2= Nausea/Diarrhea Tremor Observation: 2= Slight Tremor Visible Yawning Observation: 2= >3x During Session Anxiety or Irritability: 2=Irritable/Anxious Goose Flesh Skin: 0=Smooth Skin COWS Score: 15 CIWA Score Nausea/Vomitin-Mild Nausea/No Vomiting Muscle Tremors: 4-Moderate,w/Arms Extend Anxiety: 4-Mod. Anxious/Guarded Agitation: 4-Moderately Restless Paroxysmal Sweats: 3 Orientation: 0-Oriented Tacttile Disturbances: 0-None Auditory Disturbances: 0-None Visual Disturbances: 0-None Headache: 1-Very Mild CIWA-Ar Total Score: 17 - Admission Criteria OASAS Guidelines: Admission for Medically Managed Detox: Requires at least one of the followin. CIWA greater than 12 2. Seizures within the past 24 hours 3. Delirium tremens within the past 24 hours 4. Hallucinations within the past 24 hours 5. Acute intervention needed for co occurring medical disorder 6. Acute intervention needed for co occurring psychiatric disorder 7. Severe withdrawal that cannot be handled at a lower level of care (continued vomiting, continued diarrhea, abnormal vital signs) requiring intravenous medication and/or fluids 8. Admission ROS [facility] - [facility] Allergies/Adverse Reactions: Allergies Allergy/AdvReac Type Severity Reaction Status Date / Time chlordiazepoxide Allergy Severe Difficulty Verified 08/23/18 14:50 [From Librium] Breathing History of Present Illness: pt is a 28yr old male with a history of alcohol and heroin dependence seeking detox for treatment. Exam Limitations: No Limitations - Ebola screening Have you traveled outside of the country in the last 21 days: No Have you had contact with anyone from an Ebola affected area: No Have you been sick,other than usual withdrawal symptoms: No Do you have a fever: No - Review of Systems Constitutional: Chills, Night Sweats, Changes in sleep EENT: reports: Tearing, Nose Congestion Respiratory: reports: No Symptoms reported Cardiac: reports: No Symptoms Reported GI: reports: Constipated, Poor Appetite, Poor Fluid Intake : reports: No Symptoms Reported Musculoskeletal: reports: Back Pain Integumentary: reports: Flushing, Sweating Neuro: reports: Headache, Tingling, Tremors Endocrine: reports: Excessive Sweating, Flushing, Intolerance to Cold, Intolerance to Heat Hematology: reports: No Symptoms Reported Psychiatric: reports: Judgement Intact, Mood/Affect Appropiate, Orientated x3, Agitated, Anxious Other Systems: Reviewed and Negative Patient History - Patient Medical History Hx Anemia: No Hx Asthma: No Hx Chronic Obstructive Pulmonary Disease (COPD): No Hx Cancer: No Hx Cardiac Disorders: No Hx Congestive Heart Failure: No Hx Hypertension: No Hx Hypercholesterolemia: No Hx Pacemaker: No HX Cerebrovascular Accident: No Hx Seizures: No Hx Dementia: No Hx Diabetes: No Hx Gastrointestinal Disorders: No Hx Liver Disease: No Hx Genitourinary Disorders: No Hx Sexually Transmitted Disorders: No Hx Renal Disease (ESRD): No Hx Thyroid Disease: No Hx Human Immunodeficiency Virus (HIV): No (negative) Hx Hepatitis C: No (negative) Hx Depression: No Hx Suicide Attempt: No Hx Bipolar Disorder: No Hx Schizophrenia: No - Patient Surgical History Past Surgical History: No Hx Neurologic Surgery: No Hx Cataract Extraction: No Hx Cardiac Surgery: No Hx Lung Surgery: No Hx Breast Surgery: No Hx Breast Biopsy: No Hx Abdominal Surgery: No Hx Appendectomy: No Hx Cholecystectomy: No Hx Genitourinary Surgery: No Hx Section: No Hx Orthopedic Surgery: No Anesthesia Reaction: No - PPD History Previous Implant?: Yes Documented Results: Negative w/proof Date: 03/08/18 Results: NEGATIVE PPD to be Administered?: No - Reproductive History Patient is a Female of Child Bearing Age (11 -55 yrs old): No - Smoking Cessation Smoking history: Current every day smoker Have you smoked in the past 12 months: Yes Aproximately how many cigarettes per day: 20 Hx Chewing Tobacco Use: No Initiated information on smoking cessation: Yes 'Breaking Loose' booklet given: 08/23/18 - Substance & Tx. History Hx Alcohol Use: Yes Hx Substance Use: Yes Substance Use Type: Alcohol, Cocaine, Heroin Hx Substance Use Treatment: Yes (last detox 07/2018) - Substances Abused Heroin Route: Injection Frequency: Daily Amount used: 10-20 BASG Age of first use: 25 Date of Last Use: 08/22/18 Alcohol Route: Oral Frequency: Daily Amount used: 1 LITER OF VODKA Age of first use: 20 Date of Last Use: 08/22/18 Cocaine Route: Injection Frequency: Daily Amount used: 1 GRAM Age of first use: 21 Date of Last Use: 08/22/18 Family Disease History - Family Disease History Family History: Denies Admission Physical Exam [facility] - Vital Signs Vital Signs: Vital Signs - 24 hr 08/23/18 14:39 Temperature 97.3 F L Pulse Rate 80 Respiratory 18 Rate Blood Pressure 119/75 - Physical General Appearance: Yes: Appropriately Dressed, Moderate Distress, Tremorous, Irritable, Sweating, Anxious HEENTM: Yes: Normal Voice, Rhinorrhea Respiratory: Yes: Lungs Clear, Normal Breath Sounds, No Respiratory Distress Neck: Yes: Within Normal Limits Breast: Yes: Within Normal Limits Cardiology: Yes: Regular Rhythm, Regular Rate, S1, S2 Abdominal: Yes: Normal Bowel Sounds, Non Tender Genitourinary: Yes: Within Normal Limits Back: Yes: Normal Inspection Musculoskeletal: Yes: full range of Motion Extremities: Yes: Normal Capillary Refill, Non-Tender, Tremors Neurological: Yes: Fully Oriented, Alert, Normal Response Integumentary: Yes: Normal Color, Diaphoresis, Track [place] Lymphatic: Yes: Within Normal Limits - Diagnostic (1) Alcohol dependence with uncomplicated withdrawal Current Visit: Yes Status: Chronic (2) IV drug user Current Visit: Yes Status: Acute (3) Nicotine dependence Current Visit: Yes Status: Chronic Qualifiers: Nicotine product type: cigarettes Substance use status: uncomplicated Qualified Code(s): F17.210 - Nicotine dependence, cigarettes, uncomplicated (4) Opioid dependence with withdrawal Current Visit: Yes Status: Chronic (5) Weight loss Current Visit: No Status: Acute (6) Cocaine dependence Current Visit: Yes Status: Chronic Qualifiers: Substance use status: uncomplicated Cleared for Admission [facility] - Detox or Rehab [facility] Level of Care: Medically Managed Detox Regimen/Protocol: Methadone/Valium S Breath Alcohol Content Breath Alcohol Content: 0 Urine Drug Screen - Results Drug Screen Negative: No Urine Drug Screen Results: JAGRUTI-Cocaine, OPI-Opiates Inpatient Rehab Admission - Rehab Decision to Admit Inpatient rehab admission?: No
[2018-08-23] MEDS ORDERED: P-EPHED 60MG/TRIPROLIDI 2.5MG TABLET PO PRN (15:34)
[2018-08-23] MEDS ORDERED: NICOTINE POLACRILEX 4 MG GUM BUC PRN (15:34)
[2018-08-23] MEDS ORDERED: ACETAMINOPHEN 325 MG TABLET (FP) PO PRN ×2 (15:34)
[2018-08-23] MEDS ORDERED: BISMUTH SUBSALICYLATE 524 MG/30 ML UD PO PRN (15:34)
[2018-08-23] MEDS ORDERED: MAGNESIUM CITRATE 300 ML BOTTLE PO PRN (15:34)
[2018-08-23] MEDS ORDERED: hydrOXYzine PAMOATE 25 MG CAPSULE (FP) PO PRN (15:34)
[2018-08-23] MEDS ORDERED: MAG HYDROX/AL HYDROX/SIMETH 30 ML UNIT-DOSE CUP PO PRN (15:34)
[2018-08-23] MEDS ORDERED: ONDANSETRON *ODT* 4 MG TABLET SL PRN (15:34)
[2018-08-23] MEDS ORDERED: IBUPROFEN 400 MG TABLET (FP) PO PRN (15:34)
[2018-08-23] MEDS ORDERED: cloNIDine HCL 0.1 MG TABLET PO PRN (15:34)
[2018-08-23] MEDS ORDERED: MAGNESIUM HYDROX 2400MG/30ML ORAL SUSPENSION 30 ML CUP PO PRN (15:34)
[2018-08-23] MEDS ORDERED: MENTHOL/PHENOL 1 EACH UD MM PRN (15:34)
[2018-08-23] MEDS ORDERED: METHADONE HCL 10 MG TABLET (FOR DETOX USE ONLY) PO ONE ×2 (17:00→23:00)
[2018-08-23] MEDS: diazePAM 5 MG TABLET PO ONE ×2 (17:49→17:50)
[2018-08-23] MEDS: diazePAM 5 MG TABLET PO SCH (23:01)
[2018-08-23] MEDS: THIAMINE HCL 100 MG TABLET (FP) PO SCH (23:02)
[2018-08-24] MEDS: diazePAM 5 MG TABLET PO PRN ×3 (02:37→18:29)
[2018-08-24] MEDS: diazePAM 5 MG TABLET PO SCH ×3 (05:56→22:25)
[2018-08-24] MEDS ORDERED: METHADONE HCL 10 MG TABLET (FOR DETOX USE ONLY) PO ONE (10:00)
[2018-08-24 10:11] LABS: HEMATOCRIT 42.2 % (35.4-49); HEMOGLOBIN 14.4 GM/dL (11.7-16.9); MCHC 34.1 g/dl (32.0-35.9); MEAN CELL VOLUME 91.1 fl (80-96); MEAN PLT VOLUME 8.6 fl (7.5-11.1); PLATELET COUNT 199 K/MM3 (134-434); RBC 4.63 M/mm3 (4.00-5.60); RDW 13.9 % (11.9-15.9); WHITE BLOOD COUNT 7.6 K/mm3 (4.0-10.0)
[2018-08-24 10:39] LABS: ALBUMIN 3.3 g/dl (3.4-5.0); ALK PHOS 66 U/L (45-117); ANION GAP 7 MMOL/L (8-16); BILIRUBIN,TOTAL 0.3 mg/dL (0.2-1); BLOOD UREA NITROGEN 13 mg/dL (7-18); CALCIUM 8.7 mg/dL (8.5-10.1); CHLORIDE 105 mmol/L (98-107); CO2 27 mmol/L (21-32); GLUCOSE,RANDOM 126 mg/dL (74-106); POTASSIUM 4.3 mmol/L (3.5-5.1); SGOT/AST 55 U/L (15-37); SGPT/ALT 88 U/L (13-61); SODIUM 139 mmol/L (136-145); TOT PROT 6.7 g/dl (6.4-8.2)
[2018-08-24] MEDS: PRENATAL VITAMINS W/ FOLIC ACID TABLET (FP) PO SCH (11:01)
[2018-08-24] MEDS: NICOTINE 21 MG/24 HOURS TOPICAL PATCH TD SCH (11:02)
--- NOTE | 2018-08-24 12:46 | PN ---
[facility] CIWA - CIWA Score Nausea/Vomitin-No Nausea/No Vomiting Muscle Tremors: 3 Anxiety: 3 Agitation: 3 Paroxysmal Sweats: 3 Orientation: 0-Oriented Tacttile Disturbances: 0-None Auditory Disturbances: 0-None Visual Disturbances: 0-None Headache: 0-None Present CIWA-Ar Total Score: 12 S COWS - Scale Resting Pulse: 0= [place] 80 or Below Sweatin=Flushed/Facial Moisture Restless Observation: 1= Difficult to Sit Still Pupil Size: 0= Normal to Room Light Bone or Joint Aches: 2= Severe Diffuse Aches Runny Nose/ Eye Tearin= Runny Nose/Eyes GI Upset > 30mins: 0= None Tremor Observation of Outstretched Hands: 2= Slight Tremor Visible Yawning Observation: 0= None Anxiety or Irritability: 2=Irritable/Anxious Goose Flesh Skin: 0=Smooth Skin COWS Score: 11 S Progress Note (SOAP) Subjective: sweats anxiety irritable agitation interrupted sleep low appetite Objective: 08/24/18 12:45 Vital Signs Temperature 97.7 F 08/24/18 10:22 Pulse Rate 79 08/24/18 10:22 Respiratory Rate 16 08/24/18 10:22 Blood Pressure 101/47 L 08/24/18 10:22 O2 Sat by Pulse Oximetry (%) Laboratory Tests 08/24/18 08/24/18 08/24/18 07:40 07:40 07:40 WBC 7.6 RBC 4.63 Hgb 14.4 Hct 42.2 MCV 91.1 MCH 31.0 MCHC 34.1 RDW 13.9 Plt Count 199 MPV 8.6 Sodium 139 Potassium 4.3 Chloride 105 Carbon Dioxide 27 Anion Gap 7 L BUN 13 Creatinine 1.0 Creat Clearance w eGFR > 60 Random Glucose 126 H Calcium 8.7 Total Bilirubin 0.3 AST 55 H ALT 88 H Alkaline Phosphatase 66 Total Protein 6.7 Albumin 3.3 L HIV 1&2 Antibody Screen Negative HIV P24 Antigen Negative aaox3 ambulating no acute distress Assessment: 08/24/18 12:45 withdrawal sx Plan: continue detox increase fluids dietary consultation ordered
[2018-08-24] MEDS: VITAMINS A AND D TOPICAL OINTMENT 60 GM TUBE TP SCH (21:05)
[2018-08-24] MEDS: MELATONIN 5 MG TABLETS PO PRN (22:25)
[2018-08-24] MEDS: THIAMINE HCL 100 MG TABLET (FP) PO SCH (22:25)
[2018-08-25] MEDS: VITAMINS A AND D TOPICAL OINTMENT 60 GM TUBE TP SCH ×4 (00:20→21:58)
[2018-08-25] MEDS: diazePAM 5 MG TABLET PO PRN ×5 (00:28→21:41)
[2018-08-25] MEDS ORDERED: METHADONE HCL 10 MG TABLET (FOR DETOX USE ONLY) PO ONE (10:00)
[2018-08-25] MEDS: diazePAM 5 MG TABLET PO SCH ×2 (10:18→22:41)
[2018-08-25] MEDS: PRENATAL VITAMINS W/ FOLIC ACID TABLET (FP) PO SCH (10:19)
[2018-08-25] MEDS: NICOTINE 21 MG/24 HOURS TOPICAL PATCH TD SCH (10:19)
--- NOTE | 2018-08-25 13:06 | PN ---
S CIWA - CIWA Score Nausea/Vomitin-Mild Nausea/No Vomiting Muscle Tremors: 3 Anxiety: 3 Agitation: 3 Paroxysmal Sweats: 3 Orientation: 0-Oriented Tacttile Disturbances: 0-None Auditory Disturbances: 0-None Visual Disturbances: 0-None Headache: 0-None Present CIWA-Ar Total Score: 13 BHS COWS - Scale Resting Pulse: 0= [place] 80 or Below Sweatin= Chills/Flushing Restless Observation: 3= Extraneous Movement Pupil Size: 0= Normal to Room Light Bone or Joint Aches: 2= Severe Diffuse Aches Runny Nose/ Eye Tearin= Runny Nose/Eyes GI Upset > 30mins: 2= Nausea/Diarrhea Tremor Observation of Outstretched Hands: 2= Slight Tremor Visible Yawning Observation: 0= None Anxiety or Irritability: 2=Irritable/Anxious Goose Flesh Skin: 0=Smooth Skin COWS Score: 14 S Progress Note (SOAP) Subjective: Body aches, sweating, interrupted sleep Objective: 08/25/18 13:03 Last Vital Signs Temp Pulse Resp BP Pulse Ox 98.6 F 77 18 107/57 L 08/25/18 09:37 08/25/18 09:37 08/25/18 09:37 08/25/18 09:37 Laboratory Tests 08/24/18 08/24/18 08/24/18 07:40 07:40 07:40 WBC 7.6 RBC 4.63 Hgb 14.4 Hct 42.2 MCV 91.1 MCH 31.0 MCHC 34.1 RDW 13.9 Plt Count 199 MPV 8.6 Sodium 139 Potassium 4.3 Chloride 105 Carbon Dioxide 27 Anion Gap 7 L BUN 13 Creatinine 1.0 Creat Clearance w eGFR > 60 Random Glucose 126 H Calcium 8.7 Total Bilirubin 0.3 AST 55 H ALT 88 H Alkaline Phosphatase 66 Total Protein 6.7 Albumin 3.3 L RPR Titer HIV 1&2 Antibody Screen Negative HIV P24 Antigen Negative 08/24/18 07:40 WBC RBC Hgb Hct MCV MCH MCHC RDW Plt Count MPV Sodium Potassium Chloride Carbon Dioxide Anion Gap BUN Creatinine Creat Clearance w eGFR Random Glucose Calcium Total Bilirubin AST ALT Alkaline Phosphatase Total Protein Albumin RPR Titer Nonreactive HIV 1&2 Antibody Screen HIV P24 Antigen Labs reviewed: serum glucose 126mg/dl Assessment: 08/25/18 13:04 Withdrawal symptoms Noted with hyperglycemia Plan: Continue detox Hyperglycemia: most likely related to withdrawal symptoms Encouraged PO water hydration Repeat fasting glucose in AM
[2018-08-25] MEDS: METHOCARBAMOL 500 MG TABLET PO PRN (17:25)
[2018-08-25] MEDS: THIAMINE HCL 100 MG TABLET (FP) PO SCH (21:43)
[2018-08-25] MEDS: MELATONIN 5 MG TABLETS PO PRN (22:42)
[2018-08-26] MEDS: VITAMINS A AND D TOPICAL OINTMENT 60 GM TUBE TP SCH ×5 (00:30→23:14)
[2018-08-26] MEDS: diazePAM 5 MG TABLET PO PRN ×3 (01:55→14:28)
[2018-08-26] MEDS ORDERED: diazePAM 5 MG TABLET PO SCH (06:00)
[2018-08-26] MEDS ORDERED: METHADONE HCL 10 MG TABLET (FOR DETOX USE ONLY) PO ONE (10:00)
[2018-08-26] MEDS: NICOTINE 21 MG/24 HOURS TOPICAL PATCH TD SCH (10:16)
[2018-08-26] MEDS: PRENATAL VITAMINS W/ FOLIC ACID TABLET (FP) PO SCH (10:16)
--- NOTE | 2018-08-26 12:34 | PN ---
[facility] Progress Note (SOAP) Subjective: Body Aches. Objective: PATIENT A & O X 3, OBSERVED AMBULATING ON UNIT. IN NO ACUTE DISTRESS. 08/26/18 12:31 Vital Signs Temperature 97.7 F 08/26/18 09:27 Pulse Rate 75 08/26/18 09:27 Respiratory Rate 18 08/26/18 09:27 Blood Pressure 109/55 L 08/26/18 09:27 O2 Sat by Pulse Oximetry (%) Laboratory Tests 08/24/18 08/24/18 08/24/18 07:40 07:40 07:40 WBC 7.6 RBC 4.63 Hgb 14.4 Hct 42.2 MCV 91.1 MCH 31.0 MCHC 34.1 RDW 13.9 Plt Count 199 MPV 8.6 Sodium 139 Potassium 4.3 Chloride 105 Carbon Dioxide 27 Anion Gap 7 L BUN 13 Creatinine 1.0 Creat Clearance w eGFR > 60 Random Glucose 126 H Calcium 8.7 Total Bilirubin 0.3 AST 55 H ALT 88 H Alkaline Phosphatase 66 Total Protein 6.7 Albumin 3.3 L RPR Titer HIV 1&2 Antibody Screen Negative HIV P24 Antigen Negative 08/24/18 07:40 WBC RBC Hgb Hct MCV MCH MCHC RDW Plt Count MPV Sodium Potassium Chloride Carbon Dioxide Anion Gap BUN Creatinine Creat Clearance w eGFR Random Glucose Calcium Total Bilirubin AST ALT Alkaline Phosphatase Total Protein Albumin RPR Titer Nonreactive HIV 1&2 Antibody Screen HIV P24 Antigen LABS NOTED. Assessment: 08/26/18 12:32 WITHDRAWAL SYMPTOMS. Plan: CONTINUE DETOX. INCREASE DAILY PO FLUID INTAKE. PATIENT SCHEDULED FOR D/C TOMORROW.
[2018-08-26] MEDS: METHOCARBAMOL 500 MG TABLET PO PRN (14:33)
--- NOTE | 2018-08-26 21:14 | PN ---
[facility] Progress Note Note: Vital Signs Temperature 97.9 F 08/26/18 17:18 Pulse Rate 71 08/26/18 17:18 Respiratory Rate 19 08/26/18 17:18 Blood Pressure 100/53 L 08/26/18 17:18 O2 Sat by Pulse Oximetry (%) Patient c/o of feeling anxious and insomnia Valium dal[place] is completed Patient evaluated on the unit patient Aox3 irritable no adventcious breath sounds no acute distress full ROM Logistics Coordinator advise to patient taper for valium is completed will order neurontin 100 mg tid d/t patient reports allergies to vistaril for anxiety and one time dose for trazadone for insomnia continue to monitor
[2018-08-26 21:47] VITALS: TEMP 97.7
[2018-08-26] MEDS ORDERED: traZODone HCL 50 MG TABLET (FP) PO SCH (22:00)
[2018-08-26] MEDS: GABAPENTIN 100 MG CAPSULE (FP) PO SCH (22:16)
[2018-08-26] MEDS: THIAMINE HCL 100 MG TABLET (FP) PO SCH (22:16)
[2018-08-27] MEDS: GABAPENTIN 100 MG CAPSULE (FP) PO SCH (05:52)
[2018-08-27] MEDS: VITAMINS A AND D TOPICAL OINTMENT 60 GM TUBE TP SCH (05:53)
[2018-08-27] MEDS ORDERED: METHADONE HCL 5 MG TABLET (FOR DETOX USE ONLY) PO ONE (06:00)
[2018-08-27 07:10] VITALS: BP 113/61; PULSE 76
--- NOTE | 2018-08-27 08:24 | DS ---
[facility] Detox Discharge Summary Admission Date: 08/23/18 Discharge Date: 08/27/18 - History Present History: Alcohol Dependence, Cannabis Dependence, Cocaine Dependence, Opioid Dependence - Physical Exam Results Vital Signs: Vital Signs Temperature 97.7 F 08/27/18 07:06 Pulse Rate 76 08/27/18 07:06 Respiratory Rate 18 08/27/18 07:06 Blood Pressure 113/61 08/27/18 07:06 O2 Sat by Pulse Oximetry (%) - Treatment Hospital Course: Detox Protocol Followed, Detoxed Safely, Responded well, Discharged Condition Good, Rehab Referral Accepted - Medication Discharge Medications: Ambulatory Orders Naloxone HCl [Narcan] 4 mg NS ASDIR PRN #1 spray 07/28/18 - Diagnosis (1) Alcohol dependence with uncomplicated withdrawal Current Visit: Yes Status: Chronic (2) IV drug user Current Visit: Yes Status: Acute (3) Nicotine dependence Current Visit: Yes Status: Chronic Qualifiers: Nicotine product type: cigarettes Substance use status: uncomplicated Qualified Code(s): F17.210 - Nicotine dependence, cigarettes, uncomplicated (4) Opioid dependence with withdrawal Current Visit: Yes Status: Chronic (5) Weight loss Current Visit: No Status: Acute (6) Cocaine dependence Current Visit: Yes Status: Chronic Qualifiers: Substance use status: uncomplicated Qualified Code(s): F14.20 - Cocaine dependence, uncomplicated - AMA Did Patient Leave Against Medical Advice: No (referred to out patient rehab)
== END 2018-08-27 09:40 | disposition home or self-care (01) | DRG 773 ==
LOC: YASAS 13:19 → Y6N 15:58
PROVIDERS: ADMIT Surgery; ATTEND Surgery
PROC: HZ2ZZZZ Detoxification Services for Substance Abuse Treatment (ICD-10-PCS; principal; 2018-08-23)
DX: F11.23 Opioid dependence with withdrawal (principal); F10.230 Alcohol dependence with withdrawal, uncomplicated; F14.20 Cocaine dependence, uncomplicated; F17.210 Nicotine dependence, cigarettes, uncomplicated; R63.4 Abnormal weight loss; Z68.26 Body mass index [BMI] 26.0-26.9, adult; R73.9 Hyperglycemia, unspecified; Z59.0 Homelessness
CPT/HCPCS: 36415; 80053; 85027; 86593; 87389; J0735

== ENCOUNTER 2018-12-08 10:56 | Inpatient (IN) | payer OTHER ==
[2018-12-08 14:17] VITALS: BMI 26.8
--- NOTE | 2018-12-08 16:02 | HP ---
COWS - Scale Resting Pulse: 0= [place] 80 or Below Sweatin= Chills/Flushing Restless Observation: 1= Difficult to Sit Still Pupil Size: 1= Pupils >than Normal Bone or Joint Aches: 2= Severe Diffuse Aches Runny Nose/ Eye Tearin= Runny Nose/Eyes GI Upset > 30mins: 2= Nausea/Diarrhea Tremor Observation: 2= Slight Tremor Visible Yawning Observation: 2= >3x During Session Anxiety or Irritability: 2=Irritable/Anxious Goose Flesh Skin: 0=Smooth Skin COWS Score: 15 CIWA Score Nausea/Vomitin Muscle Tremors: 2 Anxiety: 2 Agitation: 2 Paroxysmal Sweats: 1-Minimal Palms Moist Orientation: 0-Oriented Tacttile Disturbances: 1-Very Mild Itch/Numbness Auditory Disturbances: 1-Very Mild Visual Disturbances: 0-None Headache: 2-Mild CIWA-Ar Total Score: 13 - Admission Criteria OASAS Guidelines: Admission for Medically Managed Detox: Requires at least one of the followin. CIWA greater than 12 2. Seizures within the past 24 hours 3. Delirium tremens within the past 24 hours 4. Hallucinations within the past 24 hours 5. Acute intervention needed for co occurring medical disorder 6. Acute intervention needed for co occurring psychiatric disorder 7. Severe withdrawal that cannot be handled at a lower level of care (continued vomiting, continued diarrhea, abnormal vital signs) requiring intravenous medication and/or fluids 8. Admission ROS S - [facility] Chief Complaint: i need help to stop using heroin,cocaine,xanax,marijuana Allergies/Adverse Reactions: Allergies Allergy/AdvReac Type Severity Reaction Status Date / Time chlordiazepoxide Allergy Severe Difficulty Verified 12/08/18 14:08 [From Librium] Breathing lorazepam [From Ativan] Allergy Mild Difficulty Verified 12/08/18 14:08 Breathing History of Present Illness: this 28 years old male with heroin,cocaine,marijuana and xanax dependence, seeking detox,withdrawal symptom, multiple admissions in detox,last [facility] 08/23/18 to 08/27/18 weight loss nicotine dependence 1 pack/day,requested nicotine patch and gum longest period of sobriety 18 months paln for rehab Exam Limitations: No Limitations - Ebola screening Have you traveled outside of the country in the last 21 days: No (N) Have you had contact with anyone from an Ebola affected area: No Do you have a fever: No - Review of Systems Constitutional: Chills, Loss of Appetite, Malaise, Night Sweats, Changes in sleep, Weakness, Unintentional Wgt. Loss EENT: reports: Tearing, Nose Congestion Respiratory: reports: No Symptoms reported Cardiac: reports: No Symptoms Reported GI: reports: Diarrhea, Nausea, Vomiting, Abdominal cramping : reports: No Symptoms Reported Musculoskeletal: reports: Back Pain, Joint Pain, Muscle Pain, Joint Stiffness Integumentary: reports: Dryness Neuro: reports: Headache, Tremors Endocrine: reports: No Symptoms Reported Hematology: reports: No Symptoms Reported Psychiatric: reports: No Sypmtoms Reported, Judgement Intact, Mood/Affect Appropiate, Orientated x3, other (insomnia) Other Systems: Reviewed and Negative Patient History - Patient Medical History Hx Anemia: No Hx Asthma: No Hx Chronic Obstructive Pulmonary Disease (COPD): No Hx Cancer: No Hx Cardiac Disorders: No Hx Congestive Heart Failure: No Hx Hypertension: No Hx Hypercholesterolemia: No Hx Pacemaker: No HX Cerebrovascular Accident: No Hx Seizures: No Hx Dementia: No Hx Diabetes: No Hx Gastrointestinal Disorders: No Hx Liver Disease: No Hx Genitourinary Disorders: No Hx Sexually Transmitted Disorders: No Hx Renal Disease (ESRD): No Hx Thyroid Disease: No Hx Human Immunodeficiency Virus (HIV): No (negative last 05/05) Hx Hepatitis C: No (negative) Hx Depression: No Hx Suicide Attempt: No Hx Bipolar Disorder: No Hx Schizophrenia: No Other Medical History: no suicidal,no homicidal,uinsomnia - Patient Surgical History Past Surgical History: No Hx Neurologic Surgery: No Hx Cataract Extraction: No Hx Cardiac Surgery: No Hx Lung Surgery: No Hx Breast Surgery: No Hx Breast Biopsy: No Hx Abdominal Surgery: No Hx Appendectomy: No Hx Cholecystectomy: No Hx Genitourinary Surgery: No Hx Section: No Hx Orthopedic Surgery: No Anesthesia Reaction: No - PPD History Previous Implant?: Yes Documented Results: Negative w/proof Date: 03/08/18 Results: NEGATIVE 0 mm PPD to be Administered?: No - Smoking Cessation Smoking history: Current every day smoker Have you smoked in the past 12 months: Yes Aproximately how many cigarettes per day: 20 Hx Chewing Tobacco Use: No Initiated information on smoking cessation: Yes 'Breaking Loose' booklet given: 12/08/18 - Substance & Tx. History Hx Alcohol Use: Yes Hx Substance Use: Yes Substance Use Type: Alcohol, Cocaine, Heroin, Tranquilizers Hx Substance Use Treatment: Yes ([facility] 08/23/18 to 07/30/18) - Substances abused Alcohol Substance route: Oral Frequency: Daily Amount used: 1 pint of vodka Age of first use: 16 Date of last use: 12/07/18 Heroin Substance route: Injection Frequency: Daily Amount used: 10-20 bags Age of first use: 25 Date of last use: 12/07/18 Cocaine Substance route: Injection Frequency: Daily Amount used: 1-2 grams Age of first use: 20 Date of last use: 12/07/18 Alprazolam (Xanax) Substance route: Oral Frequency: Daily Amount used: 6mg/daily Age of first use: 22 Date of last use: 12/07/18 Family Disease History - Family Disease History Family History: Denies Admission Physical Exam S - Vital Signs Vital Signs: Vital Signs - 24 hr 12/08/18 12/08/18 14:06 15:48 Temperature 97.7 F 97.7 F Pulse Rate 71 71 Respiratory 18 18 Rate Blood Pressure 97/55 L 97/55 L - Physical General Appearance: Yes: Moderate Distress, Tremorous, Irritable, Sweating, Anxious HEENTM: Yes: Normal ENT Inspection, [place], Pharynx Normal Respiratory: Yes: Within Normal Limits, Lungs Clear, Normal Breath Sounds Neck: Yes: Within Normal Limits, Supple, Trachea in good position Breast: Yes: Within Normal Limits Cardiology: Yes: Within Normal Limits, Regular Rhythm, Regular Rate, S1, S2 Abdominal: Yes: Within Normal Limits, Normal Bowel Sounds, Non Tender, Flat, Soft Genitourinary: Yes: Within Normal Limits Back: Yes: Muscle Spasm Musculoskeletal: Yes: full range of Motion, Back pain, Joint Stiffness, Muscle Pain Extremities: Yes: Within Normal Limits, Normal Range of Motion, Tremors Neurological: Yes: calculus professor II-XII NML intact, Alert, Motor Strength 5/5 Integumentary: Yes: Dry Lymphatic: Yes: Within Normal Limits - Diagnostic (1) Opioid dependence with withdrawal Current Visit: No Status: Chronic (2) IV drug user Current Visit: No Status: Acute (3) Weight loss Current Visit: No Status: Acute (4) Alcohol dependence with uncomplicated withdrawal Current Visit: No Status: Chronic (5) Cocaine dependence Current Visit: No Status: Chronic Qualifiers: Substance use status: uncomplicated Qualified Code(s): F14.20 - Cocaine dependence, uncomplicated (6) Nicotine dependence Current Visit: No Status: Chronic Qualifiers: Nicotine product type: cigarettes Substance use status: uncomplicated Qualified Code(s): F17.210 - Nicotine dependence, cigarettes, uncomplicated (7) Insomnia Current Visit: Yes Status: Acute Cleared for Admission S - Detox or Rehab [facility] Level of Care: Medically Managed Detox Regimen/Protocol: Methadone/Valium Breathalyzer - Breathalyzer Breathalyzer: 0 Urine Drug Screen - Test Device Lot number: [id number] Expiration date: 08/15/20 - Control Is test valid?: Yes - Results Drug screen NEGATIVE: No Urine drug screen results: THC-Marijuana, JAGRUTI-Cocaine, MET-Methamphetamine, FEN- Fentanyl, MOP-Opiates, OXY-Oxycodone, MTD-Methadone, BZO-Benzodiazepines Inpatient Rehab Admission - Rehab Decision to Admit Inpatient rehab admission?: No
[2018-12-08] MEDS ORDERED: cloNIDine HCL 0.1 MG TABLET PO PRN (16:10)
[2018-12-08] MEDS ORDERED: hydrOXYzine PAMOATE 25 MG CAPSULE (FP) PO PRN (16:16)
[2018-12-08] MEDS ORDERED: NICOTINE POLACRILEX 2 MG GUM BUC PRN (16:16)
[2018-12-08] MEDS ORDERED: BISMUTH SUBSALICYLATE 524 MG/30 ML UD PO PRN (16:16)
[2018-12-08] MEDS ORDERED: MAGNESIUM CITRATE 300 ML BOTTLE PO PRN (16:16)
[2018-12-08] MEDS ORDERED: MELATONIN 5 MG TABLETS PO PRN (16:16)
[2018-12-08] MEDS ORDERED: MENTHOL/PHENOL 1 EACH UD MM PRN (16:16)
[2018-12-08] MEDS ORDERED: MAG HYDROX/AL HYDROX/SIMETH 30 ML UNIT-DOSE CUP PO PRN (16:16)
[2018-12-08] MEDS ORDERED: IBUPROFEN 400 MG TABLET (FP) PO PRN (16:16)
[2018-12-08] MEDS ORDERED: ACETAMINOPHEN 325 MG TABLET (FP) PO PRN ×2 (16:16)
[2018-12-08] MEDS ORDERED: METHOCARBAMOL 500 MG TABLET PO PRN (16:16)
[2018-12-08] MEDS ORDERED: MAGNESIUM HYDROX 2400MG/30ML ORAL SUSPENSION 30 ML CUP PO PRN (16:16)
[2018-12-08] MEDS ORDERED: METHADONE HCL 10 MG TABLET (FOR DETOX USE ONLY) PO ONE ×2 (17:37→23:00)
[2018-12-08] MEDS: NICOTINE 21 MG/24 HOURS TOPICAL PATCH TD SCH (17:55)
[2018-12-08] MEDS: diazePAM 5 MG TABLET PO SCH (22:33)
[2018-12-08] MEDS: THIAMINE HCL 100 MG TABLET (FP) PO SCH (22:33)
[2018-12-09] MEDS: diazePAM 5 MG TABLET PO SCH ×3 (06:19→22:53)
[2018-12-09] MEDS ORDERED: METHADONE HCL 10 MG TABLET (FOR DETOX USE ONLY) PO ONE (10:00)
[2018-12-09 10:16] LABS: HEMATOCRIT 37.7 % (35.4-49); HEMOGLOBIN 12.5 GM/dL (11.7-16.9); MCH 28.4 pg (25.7-33.7); MCHC 33.2 g/dl (32.0-35.9); MEAN CELL VOLUME 85.6 fl (80-96); MEAN PLT VOLUME 8.7 fl (7.5-11.1); PLATELET COUNT 209 K/MM3 (134-434); RBC 4.41 M/mm3 (4.00-5.60); RDW 13.6 % (11.9-15.9)
[2018-12-09 10:32] LABS: ALBUMIN 3.1 g/dl (3.4-5.0); BILIRUBIN,TOTAL 0.6 mg/dL (0.2-1); BLOOD UREA NITROGEN 12.4 mg/dL (7-18); CALCIUM 8.4 mg/dL (8.5-10.1); CREATININE 0.8 mg/dL (0.55-1.3); POTASSIUM 3.8 mmol/L (3.5-5.1); TOT PROT 6.5 g/dl (6.4-8.2)
[2018-12-09] MEDS: NICOTINE 21 MG/24 HOURS TOPICAL PATCH TD SCH (10:46)
[2018-12-09] MEDS: PRENATAL VITAMINS W/ FOLIC ACID TABLET (FP) PO SCH (10:46)
[2018-12-09] MEDS: diazePAM 5 MG TABLET PO PRN ×2 (11:55→17:11)
--- NOTE | 2018-12-09 13:36 | PN ---
[facility] CIWA - CIWA Score Nausea/Vomitin-No Nausea/No Vomiting Muscle Tremors: 3 Anxiety: 3 Agitation: 3 Paroxysmal Sweats: 3 Orientation: 0-Oriented Tacttile Disturbances: 0-None Auditory Disturbances: 0-None Visual Disturbances: 0-None Headache: 0-None Present CIWA-Ar Total Score: 12 BHS COWS - Scale Resting Pulse: 0= [place] 80 or Below Sweatin=Flushed/Facial Moisture Restless Observation: 1= Difficult to Sit Still Pupil Size: 0= Normal to Room Light Bone or Joint Aches: 2= Severe Diffuse Aches Runny Nose/ Eye Tearin= Nasal Congestion GI Upset > 30mins: 0= None Tremor Observation of Outstretched Hands: 1= Tremor [place], Not Seen Yawning Observation: 1= 1-2x During Session Anxiety or Irritability: 2=Irritable/Anxious Goose Flesh Skin: 3=Piloerection COWS Score: 13 S Progress Note (SOAP) Subjective: agitation sweats agitation irritable body aches interrupted sleep Objective: 12/09/18 13:36 Vital Signs Temperature 97.9 F 12/09/18 09:16 Pulse Rate 73 12/09/18 09:16 Respiratory Rate 17 12/09/18 09:16 Blood Pressure 96/50 L 12/09/18 09:16 O2 Sat by Pulse Oximetry (%) Laboratory Tests 12/09/18 12/09/18 12/09/18 07:00 07:00 07:00 WBC 6.0 RBC 4.41 Hgb 12.5 Hct 37.7 MCV 85.6 MCH 28.4 MCHC 33.2 RDW 13.6 Plt Count 209 MPV 8.7 Sodium 140 Potassium 3.8 Chloride 106 Carbon Dioxide 32 Anion Gap 3 L BUN 12.4 Creatinine 0.8 Est GFR (CKD-EPI)AfAm 138.93 Est GFR (CKD-EPI)NonAf 119.87 Random Glucose 73 L Calcium 8.4 L Total Bilirubin 0.6 AST 48 H ALT 67 H Alkaline Phosphatase 100 Total Protein 6.5 Albumin 3.1 L RPR Titer Nonreactive HIV 1&2 Antibody Screen HIV P24 Antigen 12/09/18 07:00 WBC RBC Hgb Hct MCV MCH MCHC RDW Plt Count MPV Sodium Potassium Chloride Carbon Dioxide Anion Gap BUN Creatinine Est GFR (CKD-EPI)AfAm Est GFR (CKD-EPI)NonAf Random Glucose Calcium Total Bilirubin AST ALT Alkaline Phosphatase Total Protein Albumin RPR Titer HIV 1&2 Antibody Screen Negative HIV P24 Antigen Negative labs noted aaox3 ambulating no acute distress Assessment: 12/09/18 13:36 withdrawal sx Plan: continue detox increase fluids
--- NOTE | 2018-12-09 14:36 | CONSULT ---
[facility] Psychiatric Consult - Data Date of interview: 12/09/18 Admission source: Self-referred Identifying data: Mr Chase is a 28 years old single male, father of 3 children, unemployed with no source of income, homeless seeking detox treatment for alcohol opioid cocaine and benzodiazepine Substance Abuse History: Reports history of alcohol, heroin, cocaine and xanax use. Refer to addiction counselor's summary for further information Medical History: Unremarkable. Smokes cigarettes 1 ppd Psychiatric History: Denies history of previous psychiatric treatment. However, reports sleeping poorly Physical/Sexual Abuse/Trauma History: Denies history of emotional, physical or sexual abuse as well as DV relationship. No service Additional Comment: Reports histoy of multiple previous misdemeanor arrest Mental Status Exam - Mental Status Exam Alert and Oriented to: Time, Place, Person Cognitive Function: Fair Patient Appearance: Well Groomed Mood: Hopeful, Euthymic Patient Behavior: Cooperative Speech Pattern: Clear Voice Loudness: Normal Thought Process: Intact, Goal Oriented Thought Disorder: Paranoid Ideation Hallucinations: Denies Suicidal Ideation: Denies Homicidal Ideation: Denies Insight/Judgement: Poor Sleep: Poorly Appetite: Good Muscle strength/Tone: Normal Gait/Station: Normal Psychiatric Findings - Problem List ([place] 1, 2,3) (1) Substance-induced sleep disorder Current Visit: Yes Status: Acute (2) Alcohol dependence with uncomplicated withdrawal Current Visit: No Status: Acute (3) Opioid dependence with withdrawal Current Visit: No Status: Acute (4) Cocaine dependence Current Visit: No Status: Chronic Qualifiers: Substance use status: uncomplicated Qualified Code(s): F14.20 - Cocaine dependence, uncomplicated (5) Sedative, hypnotic or anxiolytic dependence, uncomplicated Current Visit: Yes Status: Acute (6) Nicotine dependence Current Visit: No Status: Chronic Qualifiers: Nicotine product type: cigarettes Substance use status: uncomplicated Qualified Code(s): F17.210 - Nicotine dependence, cigarettes, uncomplicated - Initial Treatment Plan Initial Treatment Plan: 1) Start Trazadone 100 mg po HS. 2) Continue inpatient detoxification
[2018-12-09] MEDS: THIAMINE HCL 100 MG TABLET (FP) PO SCH (22:53)
[2018-12-09] MEDS: traZODone HCL 100 MG TABLET (FP) PO SCH (22:53)
[2018-12-10] MEDS ORDERED: METHADONE HCL 10 MG TABLET (FOR DETOX USE ONLY) PO ONE (10:00)
[2018-12-10] MEDS: NICOTINE 21 MG/24 HOURS TOPICAL PATCH TD SCH (10:06)
[2018-12-10] MEDS: PRENATAL VITAMINS W/ FOLIC ACID TABLET (FP) PO SCH (10:07)
[2018-12-10] MEDS: diazePAM 5 MG TABLET PO SCH ×2 (10:07→23:06)
--- NOTE | 2018-12-10 12:08 | PN ---
[facility] CIWA - CIWA Score Nausea/Vomitin-No Nausea/No Vomiting Muscle Tremors: 3 Anxiety: 2 Agitation: 2 Paroxysmal Sweats: 3 Orientation: 0-Oriented Tacttile Disturbances: 0-None Auditory Disturbances: 0-None Visual Disturbances: 0-None Headache: 0-None Present CIWA-Ar Total Score: 10 BHS COWS - Scale Resting Pulse: 0= [place] 80 or Below Sweatin= Chills/Flushing Restless Observation: 0= Sits Still Pupil Size: 0= Normal to Room Light Bone or Joint Aches: 2= Severe Diffuse Aches Runny Nose/ Eye Tearin= Nasal Congestion GI Upset > 30mins: 0= None Tremor Observation of Outstretched Hands: 1= Tremor [place], Not Seen Yawning Observation: 1= 1-2x During Session Anxiety or Irritability: 2=Irritable/Anxious Goose Flesh Skin: 0=Smooth Skin COWS Score: 8 BHS Progress Note (SOAP) Subjective: sweats interrupted sleep body aches agitation irritable Objective: 12/10/18 12:07 Vital Signs Temperature 97.7 F 12/10/18 09:40 Pulse Rate 70 12/10/18 09:40 Respiratory Rate 18 12/10/18 09:40 Blood Pressure 110/60 12/10/18 09:40 O2 Sat by Pulse Oximetry (%) Laboratory Tests 12/09/18 12/09/18 12/09/18 07:00 07:00 07:00 WBC 6.0 RBC 4.41 Hgb 12.5 Hct 37.7 MCV 85.6 MCH 28.4 MCHC 33.2 RDW 13.6 Plt Count 209 MPV 8.7 Sodium 140 Potassium 3.8 Chloride 106 Carbon Dioxide 32 Anion Gap 3 L BUN 12.4 Creatinine 0.8 Est GFR (CKD-EPI)AfAm 138.93 Est GFR (CKD-EPI)NonAf 119.87 Random Glucose 73 L Calcium 8.4 L Total Bilirubin 0.6 AST 48 H ALT 67 H Alkaline Phosphatase 100 Total Protein 6.5 Albumin 3.1 L RPR Titer Nonreactive HIV 1&2 Antibody Screen HIV P24 Antigen 12/09/18 07:00 WBC RBC Hgb Hct MCV MCH MCHC RDW Plt Count MPV Sodium Potassium Chloride Carbon Dioxide Anion Gap BUN Creatinine Est GFR (CKD-EPI)AfAm Est GFR (CKD-EPI)NonAf Random Glucose Calcium Total Bilirubin AST ALT Alkaline Phosphatase Total Protein Albumin RPR Titer HIV 1&2 Antibody Screen Negative HIV P24 Antigen Negative labs noted aaox3 ambulating no acute distress Assessment: 12/10/18 12:07 withdrawal sx Plan: continue detox increase fluids
[2018-12-10] MEDS: diazePAM 5 MG TABLET PO PRN ×2 (16:36→20:45)
[2018-12-10] MEDS: traZODone HCL 100 MG TABLET (FP) PO SCH (23:06)
[2018-12-10] MEDS: THIAMINE HCL 100 MG TABLET (FP) PO SCH (23:07)
[2018-12-11] MEDS ORDERED: diazePAM 5 MG TABLET PO SCH (06:00)
[2018-12-11 07:16] VITALS: BP 124/71; PULSE 64; TEMP 97.2
--- NOTE | 2018-12-11 08:56 | PN ---
[facility] Progress Note Note: pt was admitted with withdrawal sx. pt c/o of withdrawal symptoms and aggressive symptomatic management attempted however, pt in spite of extensive motivational counseling regarding the risk of relapse, OD, and or loss pt chose to sign out AMA. pt also states I want to get high. pt was also offered narcan kit at [facility]. pt was made aware and agreed.
--- NOTE | 2018-12-11 09:01 | DS ---
[facility] Detox Discharge Summary Admission Date: 12/08/18 Discharge Date: 12/11/18 - History Present History: Alcohol Dependence, Cocaine Dependence, Opioid Dependence, Sedative Dependence - Physical Exam Results Vital Signs: Vital Signs Temperature 97.2 F L 12/11/18 07:16 Pulse Rate 64 12/11/18 07:16 Respiratory Rate 18 12/11/18 07:16 Blood Pressure 124/71 12/11/18 07:16 O2 Sat by Pulse Oximetry (%) - Diagnosis (1) Insomnia Current Visit: Yes Status: Acute (2) Sedative, hypnotic or anxiolytic dependence, uncomplicated Current Visit: Yes Status: Chronic (3) Substance-induced sleep disorder Current Visit: Yes Status: Acute (4) Alcohol dependence with uncomplicated withdrawal Current Visit: No Status: Chronic (5) IV drug user Current Visit: Yes Status: Chronic (6) Opioid dependence with withdrawal Current Visit: Yes Status: Chronic (7) Cocaine dependence Current Visit: Yes Status: Chronic Qualifiers: Substance use status: uncomplicated Qualified Code(s): F14.20 - Cocaine dependence, uncomplicated (8) Nicotine dependence Current Visit: Yes Status: Chronic Qualifiers: Nicotine product type: cigarettes Substance use status: uncomplicated Qualified Code(s): F17.210 - Nicotine dependence, cigarettes, uncomplicated - AMA Did Patient Leave Against Medical Advice: Yes (pt refused detox and aftercare; referral provided. )
[2018-12-11] MEDS ORDERED: METHADONE HCL 10 MG TABLET (FOR DETOX USE ONLY) PO ONE (10:00)
[2018-12-11] MEDS ORDERED: METHADONE (DETOX) 10 MG, METHADONE (DETOX) 5 MG PO ONE (10:00)
[2018-12-12] MEDS ORDERED: METHADONE HCL 5 MG TABLET (FOR DETOX USE ONLY) PO ONE (06:00)
[2018-12-12] MEDS ORDERED: METHADONE HCL 10 MG TABLET (FOR DETOX USE ONLY) PO ONE (10:00)
[2018-12-13] MEDS ORDERED: METHADONE HCL 5 MG TABLET (FOR DETOX USE ONLY) PO ONE (06:00)
== END 2018-12-11 08:35 | disposition left against medical advice (07) | DRG 770 ==
LOC: YASAS 10:56 → Y6N 16:29
PROVIDERS: ADMIT Surgery; ATTEND Surgery
PROC: HZ2ZZZZ Detoxification Services for Substance Abuse Treatment (ICD-10-PCS; principal; 2018-12-08)
DX: F11.23 Opioid dependence with withdrawal (principal); F10.230 Alcohol dependence with withdrawal, uncomplicated; F13.230 Sedative, hypnotic or anxiolytic dependence with withdrawal, uncomplicated; F14.20 Cocaine dependence, uncomplicated; F17.210 Nicotine dependence, cigarettes, uncomplicated; F19.282 Other psychoactive substance dependence with psychoactive substance-induced sleep disorder; G47.00 Insomnia, unspecified; R63.4 Abnormal weight loss; Z88.8 Allergy status to other drugs, medicaments and biological substances
CPT/HCPCS: 36415; 80053; 85027; 86593; 87389

== ENCOUNTER 2019-01-09 08:32 | Inpatient (IN) | payer OTHER | END 2019-01-14 08:41 | disposition home or self-care (01) | LOC: YASAS 08:32 → Y3N 10:31 | PROC: HZ2ZZZZ Detoxification Services for Substance Abuse Treatment (ICD-10-PCS; principal; 2019-01-09) | DX: F10.230 Alcohol dependence with withdrawal, uncomplicated (principal); F11.23 Opioid dependence with withdrawal; F13.230 Sedative, hypnotic or anxiolytic dependence with withdrawal, uncomplicated; F14.20 Cocaine dependence, uncomplicated; N48.89 Other specified disorders of penis; R94.5 Abnormal results of liver function studies; Z59.0 Homelessness ==

== ENCOUNTER 2020-02-20 12:02 | Inpatient (IN) | payer OTHER ==
--- NOTE | 2020-02-20 12:27 | BHS.RME ---
Substance Use & Tx History - Substance Use History Alcohol Substance amount: 1 pint vodka Frequency of use: Daily Substance route: Oral Date of Last Use: 02/15/20 Heroin Substance amount: 5 bags Date of Last Use: 02/15/20 Cocaine- Powder Substance amount: $20 Frequency of use: Daily Substance route: Injection (ex: intravenous or skin popping) Date of Last Use: 02/14/20 Physical/Psych/Mental Status - Behavior Eye Contact: Normal - Cooperativeness Cooperativeness: Cooperative - Thinking Thought Processes: Tight, Logical, Goal Directed - Physical Health Problems Is patient presently having any pain?: No Does patient presently have any injuries (include location): No Does patient currently have a fever: No Is patient : No
--- NOTE | 2020-02-20 12:49 | HP ---
CIWA Score - Admission Criteria OASAS Guidelines: Admission for Medically Managed Detox: Requires at least one of the followin. CIWA greater than 12 2. Seizures within the past 24 hours 3. Delirium tremens within the past 24 hours 4. Hallucinations within the past 24 hours 5. Acute intervention needed for co occurring medical disorder 6. Acute intervention needed for co occurring psychiatric disorder 7. Severe withdrawal that cannot be handled at a lower level of care (continued vomiting, continued diarrhea, abnormal vital signs) requiring intravenous medication and/or fluids 8. Admitting History and Physical - Admission Chief Complaint: Mr. Chase is a 30 yo man who presents to [facility] for rehab admission. History of Present Illness: Mr. Chase is a 30 yo man who presents to [facility] for rehab admission. He was at [facility] from February 15 for detox. He was treated with Klonopin detox and referred here for rehab. He was discharged from their facility today. Review of outside record 02/16/20: negative RPR, negative COVID nasal swab, nl PT/PTT/INR. CMP nl except: glucose 61, CO2 31, anion gap 4, protein 6.2, albumin 3.3. Nl Mg. CBC normal except Hg 13.2. 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 First use age 16 y. History Source: Patient Limitations to Obtaining History: No Limitations - Past Surgical History Past Surgical History: Yes: None - Smoking History Smoking history: Current every day smoker Have you smoked in the past 12 months: Yes Aproximately how many cigarettes per day: 20 - Alcohol/Substance Use Hx Alcohol Use: Yes (vodka one pint a day) - Social History ADL: Independent History of Recent Travel: No Admission ROS S - HPI Allergies/Adverse Reactions: Allergies Allergy/AdvReac Type Severity Reaction Status Date / Time chlordiazepoxide Allergy Verified 01/09/19 08:59 [From Librium] Exam Limitations: No Limitations - Ebola screening Have you traveled outside of the country in the last 21 days: No Have you been sick,other than usual withdrawal symptoms: No Do you have a fever: No - Review of Systems Constitutional: Changes in sleep (poor quality) EENT: reports: No Symptoms Reported Respiratory: reports: No Symptoms reported Cardiac: reports: No Symptoms Reported GI: reports: No Symptoms Reported : reports: No Symptoms Reported Musculoskeletal: reports: No Symptoms Reported Integumentary: reports: No Symptoms Reported Neuro: reports: No Symptoms reported Endocrine: reports: No Symptoms Reported Hematology: reports: No Symptoms Reported Psychiatric: reports: Anxious, Depressed (thinks he has PTSD after 2 years in [place] [facility]) Patient History - Patient Medical History Hx Anemia: No Hx Asthma: No Hx Chronic Obstructive Pulmonary Disease (COPD): No Hx Cancer: No Hx Cardiac Disorders: No Hx Congestive Heart Failure: No Hx Hypertension: No Hx Hypercholesterolemia: No Hx Pacemaker: No HX Cerebrovascular Accident: No Hx Seizures: No Hx Dementia: No Hx Diabetes: No Hx Gastrointestinal Disorders: No Hx Liver Disease: No Hx Genitourinary Disorders: No Hx Sexually Transmitted Disorders: No Hx Renal Disease (ESRD): No Hx Thyroid Disease: No Hx Human Immunodeficiency Virus (HIV): No (negative last 05/05) Hx Hepatitis C: No (negative) Hx Depression: No Hx Suicide Attempt: No Hx Bipolar Disorder: No Hx Schizophrenia: No - Patient Surgical History Past Surgical History: No Hx Neurologic Surgery: No Hx Cataract Extraction: No Hx Cardiac Surgery: No Hx Lung Surgery: No Hx Breast Surgery: No Hx Breast Biopsy: No Hx Abdominal Surgery: No Hx Appendectomy: No Hx Cholecystectomy: No Hx Genitourinary Surgery: No Hx Section: No Hx Orthopedic Surgery: No Anesthesia Reaction: No - PPD History Date: 09/28/19 Results: NEGATIVE 0 mm - Smoking Cessation Smoking history: Current every day smoker Have you smoked in the past 12 months: Yes Aproximately how many cigarettes per day: 20 Hx Chewing Tobacco Use: No Initiated information on smoking cessation: Yes 'Breaking Loose' booklet given: 02/20/20 Admission Physical Exam [facility] - Physical General Appearance: Yes: No Apparent Distress, Nourished, Appropriately Dressed HEENTM: Yes: EOMI, Hearing grossly Normal, Normal Voice Respiratory: Yes: Lungs Clear, No Respiratory Distress, No Accessory Muscle Use Neck: Yes: Within Normal Limits, Supple Breast: Yes: Breast Exam Deferred Cardiology: Yes: Regular Rhythm, Regular Rate Abdominal: Yes: Non Tender, Soft, Decreased BS Genitourinary: Yes: Other (deferred) Back: Yes: Normal Inspection Musculoskeletal: Yes: Gait Steady Extremities: Yes: Normal Inspection, Non-Tender Neurological: Yes: Alert, Normal Response Integumentary: Yes: Track [place] (clean, no sign of infection right arm: ac fossa and posterior forearm) - Diagnostic (1) Alcohol use disorder Current Visit: Yes Status: Acute (2) Moderate opioid dependence on maintenance therapy Current Visit: Yes Status: Acute (3) Hepatitis C Current Visit: No Status: Chronic (4) Nicotine dependence Current Visit: Yes Status: Acute Qualifiers: Nicotine product type: cigarettes Substance use status: in withdrawal Qualified Code(s): F17.213 - Nicotine dependence, cigarettes, with withdrawal (5) Cocaine dependence Current Visit: Yes Status: Acute Qualifiers: Substance use status: uncomplicated Qualified Code(s): F14.20 - Cocaine dependence, uncomplicated (6) Sedative, hypnotic or anxiolytic dependence, uncomplicated Current Visit: Yes Status: Acute Cleared for Admission [facility] - Detox or Rehab [facility] Level of Care: Medically Supervised Breathalyzer - Breathalyzer Breathalyzer: 0 POC Urine test - Test device test lot number: not applicable Urine Drug Screen - Test Device Lot number: [id number] Expiration date: 01/19/22 - Control Is test valid?: Yes - Results Drug screen NEGATIVE: No Urine drug screen results: MTD-Methadone Inpatient Rehab Admission - Rehab Decision to Admit Inpatient rehab admission?: Yes - Initial Determination Are CD services needed?: Yes Free of communicable disease: Yes Not in need of hospitalization: Yes - Rehab Admission Criteria Previous failed treatment: Yes Poor recovery environment: Yes Comorbidities: Yes Lacks judgement: Yes Patient is meeting Inpatient Rehab admission criteria:: Yes
[2020-02-20] MEDS ORDERED: ACETAMINOPHEN 325 MG TABLET (FP) PO PRN (12:58)
[2020-02-20] MEDS ORDERED: guaiFENesin 200 MG/10 ML 10 ML UNIT-DOSE CUPS PO PRN (12:58)
[2020-02-20] MEDS ORDERED: MAGNESIUM CITRATE 300 ML BOTTLE PO PRN (12:58)
[2020-02-20] MEDS ORDERED: NICOTINE POLACRILEX 2 MG GUM BC PRN (12:58)
[2020-02-20] MEDS ORDERED: LOPERAMIDE HCL 2 MG CAPSULE PO PRN (12:58)
[2020-02-20] MEDS ORDERED: P-EPHED 60MG/TRIPROLIDI 2.5MG TABLET PO PRN (12:58)
[2020-02-20] MEDS ORDERED: MAG HYDROX/AL HYDROX/SIMETH 30 ML UNIT-DOSE CUP PO PRN (12:58)
[2020-02-20] MEDS ORDERED: MAGNESIUM HYDROX 2400MG/30ML ORAL SUSPENSION 30 ML CUP PO PRN (12:58)
[2020-02-20 13:13] VITALS: BMI 28.1
[2020-02-20] MEDS ORDERED: hydrOXYzine PAMOATE 25 MG CAPSULE (FP) PO SCH (14:00)
[2020-02-20] MEDS: IBUPROFEN 400 MG TABLET (FP) PO PRN ×2 (15:22→23:03)
--- NOTE | 2020-02-20 16:31 | CONSULT ---
[facility] Psychiatric Consult - Data Date of interview: 02/20/20 Admission source: [facility] Identifying data: Readmission to [address] [place] [address] for this 30 y/o male, self- referred for detoxification treatment. SANDRA issues : heroin, cocaine, benzodiazepine (xanax), nicotine. Patient is single, father of three, homeless, unemployed and deprived of any source of income. Substance Abuse History: Discussed with the patient. SANDRA profile as follows : Alcohol. Substance amount: 1 pint vodka. Frequency of use: Daily. Substance route: Oral. Date of Last Use: 02/15/20. Began age 19 y. No seizure. No blackouts. Admits to eye design engineering intern. Heroin. Substance amount: 5 bags. Date of Last Use: 02/15/20. First use age 25 y. No OD. NO Narcan. Cocaine- Powder. Substance amount: $20. Frequency of use: Daily. Substance route: Injection (ex: intravenous or skin popping). Date of Last Use: 02/14/20. First use age 25 y. Xanax: 6 mg every other day, last use 02/12, first use age 26 y. Nicotine: one pack per day. First use age 16 y. History Source: Patient. Limitations to Obtaining History: No Limitations Medical History: Patient endorses good general health. Known history of five heroin overdoses. Psychiatric History: Mr Chase denies history of psychiatric hospitalizations, OPD care or suicide attempts. Physical/Sexual Abuse/Trauma History: Patient denies history of psychiatric hospitalizations, OPD care or suicide attempts. He is currently on methadone maintenance (90 mg/day). Additional Comment: UDS positive for cannabinoid, cocaine, methadone and opiates. Noted in H+P report. Mental Status Exam - Mental Status Exam Alert and Oriented to: Time, Place, Person Patient Appearance: Well Groomed (tattoos on both upper extremities, neck) Mood: Nervous, Irritable Affect: Mood Congruent, Normal Range Patient Behavior: Appropriate, Cooperative Speech Pattern: Clear, Appropriate Voice Loudness: Normal Thought Process: Intact, Goal Oriented Thought Disorder: Not Present Hallucinations: Denies Suicidal Ideation: Denies Homicidal Ideation: Denies Insight/Judgement: Poor Sleep: Poorly, Difficulty falling asleep (wants seroquel at bedtime) Appetite: Good Gait/Station: Normal Psychiatric Findings - Problem List (Onyx 1, 2,3) (1) Opioid dependence on agonist therapy Current Visit: Yes Status: Chronic (2) Opioid use disorder Current Visit: Yes Status: Chronic (3) Alcohol use disorder Current Visit: Yes Status: Chronic (4) Cocaine dependence Current Visit: Yes Status: Chronic Qualifiers: Substance use status: uncomplicated Qualified Code(s): F14.20 - Cocaine dependence, uncomplicated (5) Nicotine dependence Current Visit: Yes Status: Chronic Qualifiers: Nicotine product type: cigarettes Substance use status: in withdrawal Qualified Code(s): F17.213 - Nicotine dependence, cigarettes, with withdrawal (6) Sedative, hypnotic or anxiolytic dependence, uncomplicated Current Visit: Yes Status: Chronic (7) Insomnia Current Visit: Yes Status: Chronic - Initial Treatment Plan Initial Treatment Plan: Psychoeducation. Sleep hygiene. Motivational counseling. Support. Rehabilitation : psychotherapy + MAT education + AA/NA meetings (under COVID-19 guidelines). Seroquel 50 mg po hs. Ordered, at the patient's specific request : seroquel 100 mg po hs. Side effects/benefits discussed with the patient. Mr Chase granted his consent (verbal) to MD. Vanegas.
[2020-02-20] MEDS ORDERED: TUBERCULIN PPD 5 TU/0.1ML VIAL ID ONE (16:47)
[2020-02-20] MEDS: NICOTINE 21 MG/24 HOURS TOPICAL PATCH TD SCH (16:52)
[2020-02-20 16:57] LABS: HEMATOCRIT 41.8 % (35.4-49); HEMOGLOBIN 13.6 GM/dL (11.7-16.9); MCH 28.3 pg (25.7-33.7); MCHC 32.6 g/dl (32.0-35.9); MEAN CELL VOLUME 86.8 fl (80-96); MEAN PLT VOLUME 8.6 fl (7.5-11.1); PLATELET COUNT 201 K/MM3 (134-434); RBC 4.82 M/mm3 (4.00-5.60); RDW 14.1 % (11.9-15.9)
[2020-02-20 17:02] LABS: ALBUMIN 3.4 g/dl (3.4-5.0); BILIRUBIN,TOTAL 0.4 mg/dL (0.2-1); BLOOD UREA NITROGEN 18.8 mg/dL (7-18); CREATININE 0.9 mg/dL (0.55-1.3); POTASSIUM 4.3 mmol/L (3.5-5.1); TOT PROT 7.4 g/dl (6.4-8.2)
[2020-02-20 17:08] LABS: SICKLE CELL SCREEN NEGATIVE (NEGATIVE)
[2020-02-20] MEDS: THIAMINE HCL 100 MG TABLET (FP) PO SCH (21:11)
[2020-02-20] MEDS: MELATONIN 5 MG TABLETS PO SCH (21:11)
[2020-02-20] MEDS: QUEtiapine FUMARATE 50 MG TABLET PO SCH (21:11)
[2020-02-20] MEDS ORDERED: MASKS NR ONE (22:41)
[2020-02-21] MEDS ORDERED: METHADONE HCL 40 MG DISPERSABLE TABLET ONE (05:52)
[2020-02-21] MEDS ORDERED: METHADONE HCL 10 MG TABLET ONE (05:53)
[2020-02-21] MEDS ORDERED: METHADONE HCL 5 MG TABLET PO SCH (06:00)
[2020-02-21] MEDS: METHADONE 80 MG, METHADONE 10 MG PO SCH (06:19)
[2020-02-21] MEDS: PRENATAL VITAMINS W/ FOLIC ACID TABLET (FP) PO SCH (10:06)
[2020-02-21] MEDS: NICOTINE 21 MG/24 HOURS TOPICAL PATCH TD SCH (10:06)
[2020-02-21 14:44] LABS: PH,URINE 8.5 (5.0-8.0); URINE APPEARANCE CLEAR; URINE BILIRUBIN NEGATIVE (NEGATIVE); URINE COLOR YELLOW; URINE GLUCOSE (UA) NEGATIVE (NEGATIVE); URINE KETONE NEGATIVE (NEGATIVE); URINE LEUK ESTERASE NEGATIVE (NEGATIVE); URINE NITRITE NEGATIVE (NEGATIVE); URINE PROTEIN NEGATIVE (NEGATIVE)
[2020-02-21] MEDS: MELATONIN 5 MG TABLETS PO SCH (21:02)
[2020-02-21] MEDS: THIAMINE HCL 100 MG TABLET (FP) PO SCH (21:02)
[2020-02-21] MEDS: QUEtiapine FUMARATE 50 MG TABLET PO SCH (21:03)
[2020-02-22] MEDS ORDERED: METHADONE HCL 10 MG TABLET ONE (03:18)
[2020-02-22] MEDS ORDERED: METHADONE HCL 40 MG DISPERSABLE TABLET ONE (03:18)
[2020-02-22] MEDS: METHADONE 80 MG, METHADONE 10 MG PO SCH (06:10)
[2020-02-22] MEDS: IBUPROFEN 400 MG TABLET (FP) PO PRN (08:35)
[2020-02-22] MEDS: PRENATAL VITAMINS W/ FOLIC ACID TABLET (FP) PO SCH (09:41)
[2020-02-22] MEDS: NICOTINE 21 MG/24 HOURS TOPICAL PATCH TD SCH (10:03)
--- NOTE | 2020-02-22 12:46 | EKG ---
Test Reason : Blood Pressure : / mmHG Vent. Rate : 072 BPM Atrial Rate : 072 BPM P-R Int : 136 ms QRS Dur : 094 ms QT Int : 422 ms P-R-T Axes : 022 013 014 degrees QTc Int : 462 ms NORMAL SINUS RHYTHM NORMAL ECG WHEN COMPARED WITH ECG OF 25-APR-2018 16:06, NO SIGNIFICANT CHANGE WAS FOUND Confirmed by Alexander Lucero ([id number]) on 02/22/2020 12:46:02 PM Referred By: Confirmed By:Alexander Lucero
[2020-02-22] MEDS: QUEtiapine FUMARATE 50 MG TABLET PO SCH (21:26)
[2020-02-22] MEDS: MELATONIN 5 MG TABLETS PO SCH (21:27)
[2020-02-22] MEDS: THIAMINE HCL 100 MG TABLET (FP) PO SCH (21:27)
[2020-02-23] MEDS ORDERED: METHADONE HCL 40 MG DISPERSABLE TABLET ONE (03:21)
[2020-02-23] MEDS ORDERED: METHADONE HCL 10 MG TABLET ONE (03:22)
[2020-02-23] MEDS: METHADONE 80 MG, METHADONE 10 MG PO SCH (06:11)
[2020-02-23] MEDS: PRENATAL VITAMINS W/ FOLIC ACID TABLET (FP) PO SCH (09:42)
[2020-02-23] MEDS: NICOTINE 21 MG/24 HOURS TOPICAL PATCH TD SCH (09:42)
[2020-02-23] MEDS: IBUPROFEN 400 MG TABLET (FP) PO PRN ×2 (09:43→19:33)
[2020-02-23] MEDS: MELATONIN 5 MG TABLETS PO SCH (21:04)
[2020-02-23] MEDS: THIAMINE HCL 100 MG TABLET (FP) PO SCH (21:04)
[2020-02-23] MEDS: QUEtiapine FUMARATE 50 MG TABLET PO SCH (21:04)
[2020-02-24] MEDS ORDERED: METHADONE HCL 40 MG DISPERSABLE TABLET ONE (05:33)
[2020-02-24] MEDS ORDERED: METHADONE HCL 10 MG TABLET ONE (05:33)
[2020-02-24] MEDS: METHADONE 80 MG, METHADONE 10 MG PO SCH (06:38)
[2020-02-24] MEDS: IBUPROFEN 400 MG TABLET (FP) PO PRN ×2 (09:23→17:32)
[2020-02-24] MEDS: PRENATAL VITAMINS W/ FOLIC ACID TABLET (FP) PO SCH ×2 (09:24→10:23)
[2020-02-24] MEDS: NICOTINE 21 MG/24 HOURS TOPICAL PATCH TD SCH (09:24)
--- NOTE | 2020-02-24 11:19 | PN ---
Psychiatric Progress Note Vital Signs: Vital Signs Period Temp Pulse Resp BP Sys/Foss Pulse Ox Last 24 Hr 97.1 F-98.0 F 55 18 111/63 97-98 Date of Session: 02/24/20 Chief Complaint:: "I'm not sleeping well." HPI: Patient admitted to [facility] rehab for heroin, cocaine, benzodiazepine (xanax), and nicotine dependence. Consultation ordered due to patient c/o insomnia. ROS: Patient is calm+ cooperative, alert +oriented X3. Current Medications: Active Medications Generic Name Dose Route Start Last Admin Trade Name Freq PRN Reason Stop Dose Admin Acetaminophen 650 mg 02/20/20 12:58 Tylenol - PO Q4H PRN FEVER Al Hydroxide/Mg Hydroxide 30 ml 02/20/20 12:58 Mylanta Oral Suspension - PO Q6H PRN DYSPEPSIA Guaifenesin 10 ml 02/20/20 12:58 Robitussin - PO Q6H PRN COUGH Hydroxyzine Pamoate 25 mg 02/20/20 16:00 Vistaril - PO Q4HWA PRN ANXIETY Ibuprofen 400 mg 02/20/20 12:58 02/24/20 09:23 Motrin - PO 400 mg Q6H PRN Administration Pain level 4-6 Loperamide HCl 4 mg 02/20/20 12:58 Imodium - PO Q6H PRN DIARRHEA Magnesium Citrate 300 ml 02/20/20 12:58 Citroma - PO Q48H PRN CONSTIPATION Magnesium Hydroxide 30 ml 02/20/20 12:58 Milk Of Magnesia - PO DAILY PRN CONSTIPATION Melatonin 10 mg 02/24/20 22:00 Melatonin PO HS DEEPA Methadone HCl 80 mg/ Methadone 90 mg 02/21/20 06:00 02/24/20 06:38 HCl 10 mg PO 90 mg DAILY@0600 DEEPA Administration Nicotine 21 mg 02/20/20 14:00 02/24/20 09:24 Nicoderm Patch - TD Not Given DAILY DEEPA Nicotine Polacrilex 2 mg 02/20/20 12:58 Nicorette Gum - BC Q2H PRN NICOTINE REPLACEMENT RX Multivit/Folic Acid/Iron 1 tab 02/21/20 10:00 02/24/20 10:23 Vitamins (Sjr) - PO 1 tab DAILY DEEPA Administration Pseudoephedrine/Triprolidine 1 combo 02/20/20 12:58 Actifed - PO TID PRN NASAL CONGESTION Quetiapine Fumarate 50 mg 02/20/20 22:00 02/23/20 21:04 Seroquel - PO 50 mg HS DEEPA Administration Thiamine HCl 100 mg 02/20/20 22:00 02/23/20 21:04 Vitamin B1 - PO 100 mg HS DEEPA Administration Medication(s) Change(s): Yes. Will d/c seroquel 50mg HS + Melatonin 5mg HS. Will order Seroquel 100mg + Melatonin 10mg HS. Benefits and side effects discussed. Verbal consent given. Current Side Effect: No Lab tests ordered: No Lab tests reviewed: Yes Provider note:: Patient seen by Dr. Ruiz. Dr. Ruiz note read and appreciated. Patient reports difficulty sleeping despite accepting seroquel 50mg HS. Patient reports taking seroquel 100mg prior to admission to detox. Will d/c Seroquel 50mg + Melatonin 5mg HS. Will order Seroquel 100mg HS + melatonin 10mg HS. Patient also educated on the importance of proper sleep hygiene. Benefits and side effects discussed. Verbal consent given. Total face to face time:: 20 Mental Status Exam - Mental Status Exam Alert and Oriented to: Time, Place, Person Cognitive Function: Good Patient Appearance: Well Groomed Mood: Hopeful Affect: Appropriate Patient Behavior: Appropriate, Cooperative Speech Pattern: Appropriate Voice Loudness: Normal Thought Process: Intact, Goal Oriented Thought Disorder: Not Present Hallucinations: Denies Suicidal Ideation: Denies Homicidal Ideation: Denies Insight/Judgement: Poor Sleep: Poorly Appetite: Fair Muscle strength/Tone: Normal Gait/Station: Normal Psychiatric Treatment Plan - Problem List (1) Substance-induced sleep disorder Current Visit: Yes (2) Alcohol use disorder Current Visit: Yes (3) Cocaine dependence Current Visit: Yes Qualifiers: Substance use status: uncomplicated Qualified Code(s): F14.20 - Cocaine dependence, uncomplicated (4) Opioid dependence on agonist therapy Current Visit: Yes (5) Sedative, hypnotic or anxiolytic dependence, uncomplicated Current Visit: Yes
[2020-02-24] MEDS: QUEtiapine FUMARATE 100 MG TABLET (FP) PO SCH (21:38)
[2020-02-24] MEDS: MELATONIN 5 MG TABLETS PO SCH (21:38)
[2020-02-24] MEDS: THIAMINE HCL 100 MG TABLET (FP) PO SCH (21:38)
[2020-02-25] MEDS ORDERED: METHADONE HCL 40 MG DISPERSABLE TABLET ONE (04:15)
[2020-02-25] MEDS ORDERED: METHADONE HCL 10 MG TABLET ONE (04:15)
[2020-02-25] MEDS: METHADONE 80 MG, METHADONE 10 MG PO SCH (06:46)
[2020-02-25] MEDS: NICOTINE 21 MG/24 HOURS TOPICAL PATCH TD SCH (09:51)
[2020-02-25] MEDS: PRENATAL VITAMINS W/ FOLIC ACID TABLET (FP) PO SCH (09:51)
[2020-02-25] MEDS: IBUPROFEN 400 MG TABLET (FP) PO PRN ×2 (09:52→18:05)
[2020-02-25] MEDS: hydrOXYzine PAMOATE 25 MG CAPSULE (FP) PO PRN ×2 (15:46→21:12)
[2020-02-25] MEDS: METHOCARBAMOL 500 MG TABLET PO SCH ×2 (18:05→21:11)
[2020-02-25] MEDS: MELATONIN 5 MG TABLETS PO SCH (21:11)
[2020-02-25] MEDS: QUEtiapine FUMARATE 100 MG TABLET (FP) PO SCH (21:11)
[2020-02-25] MEDS: THIAMINE HCL 100 MG TABLET (FP) PO SCH (21:12)
[2020-02-26] MEDS ORDERED: METHADONE HCL 10 MG TABLET ONE (03:06)
[2020-02-26] MEDS ORDERED: METHADONE HCL 40 MG DISPERSABLE TABLET ONE (03:06)
[2020-02-26] MEDS: METHADONE 80 MG, METHADONE 10 MG PO SCH (06:39)
--- NOTE | 2020-02-26 09:19 | PN ---
[facility] Progress Note (SOAP) Subjective: Patient c/o toothache. Objective: P/E General: no apparent distress HEENTM: Mouth: Left molar missing, gum swelling apparent, root still there. Neck: supple Lymph: no adenopathy noted 02/26/20 09:16 02/26/20 09:17 Vital Signs Period Temp Pulse Resp BP Sys/Foss Pulse Ox Last 24 Hr 97.1 F-97.3 F 53 16 103/67 96-99 Assessment: gum and tooth infection 02/26/20 09:17 Plan: amoxicillin ordered anbesol ordered Encouraged good dental hygiene Encouraged pt to follow up with dentist upon dischar=ge.
[2020-02-26] MEDS ORDERED: BENZOCAINE 20 % GEL TUBE MM PRN (09:30)
[2020-02-26] MEDS: METHOCARBAMOL 500 MG TABLET PO SCH ×4 (10:12→21:32)
[2020-02-26] MEDS: hydrOXYzine PAMOATE 25 MG CAPSULE (FP) PO PRN ×2 (10:12→14:36)
[2020-02-26] MEDS: NICOTINE 21 MG/24 HOURS TOPICAL PATCH TD SCH (10:12)
[2020-02-26] MEDS: PRENATAL VITAMINS W/ FOLIC ACID TABLET (FP) PO SCH (10:12)
[2020-02-26] MEDS: AMOXICILLIN 500 MG CAPSULE (FP) PO SCH ×2 (10:13→21:32)
[2020-02-26] MEDS: IBUPROFEN 400 MG TABLET (FP) PO PRN (10:13)
[2020-02-26] MEDS: MELATONIN 5 MG TABLETS PO SCH (21:31)
[2020-02-26] MEDS: QUEtiapine FUMARATE 100 MG TABLET (FP) PO SCH (21:32)
[2020-02-26] MEDS: THIAMINE HCL 100 MG TABLET (FP) PO SCH (21:32)
[2020-02-27] MEDS ORDERED: METHADONE HCL 40 MG DISPERSABLE TABLET ONE (04:19)
[2020-02-27] MEDS ORDERED: METHADONE HCL 10 MG TABLET ONE (04:20)
[2020-02-27] MEDS: METHADONE 80 MG, METHADONE 10 MG PO SCH (06:56)
[2020-02-27] MEDS: IBUPROFEN 400 MG TABLET (FP) PO PRN (10:12)
[2020-02-27] MEDS: METHOCARBAMOL 500 MG TABLET PO SCH ×4 (10:12→21:08)
[2020-02-27] MEDS: AMOXICILLIN 500 MG CAPSULE (FP) PO SCH ×2 (10:12→21:08)
[2020-02-27] MEDS: hydrOXYzine PAMOATE 25 MG CAPSULE (FP) PO PRN ×2 (10:13→21:09)
[2020-02-27] MEDS: NICOTINE 21 MG/24 HOURS TOPICAL PATCH TD SCH (10:14)
[2020-02-27] MEDS: PRENATAL VITAMINS W/ FOLIC ACID TABLET (FP) PO SCH (10:14)
[2020-02-27] MEDS: QUEtiapine FUMARATE 100 MG TABLET (FP) PO SCH (21:08)
[2020-02-27] MEDS: THIAMINE HCL 100 MG TABLET (FP) PO SCH (21:08)
[2020-02-27] MEDS: MELATONIN 5 MG TABLETS PO SCH (21:08)
[2020-02-28] MEDS ORDERED: METHADONE HCL 40 MG DISPERSABLE TABLET ONE (05:36)
[2020-02-28] MEDS ORDERED: METHADONE HCL 10 MG TABLET ONE (05:36)
[2020-02-28] MEDS: METHADONE 80 MG, METHADONE 10 MG PO SCH (06:37)
[2020-02-28] MEDS: PRENATAL VITAMINS W/ FOLIC ACID TABLET (FP) PO SCH (10:01)
[2020-02-28] MEDS: AMOXICILLIN 500 MG CAPSULE (FP) PO SCH ×2 (10:01→21:37)
[2020-02-28] MEDS: METHOCARBAMOL 500 MG TABLET PO SCH ×4 (10:01→21:37)
[2020-02-28] MEDS: NICOTINE 21 MG/24 HOURS TOPICAL PATCH TD SCH (10:02)
[2020-02-28] MEDS: hydrOXYzine PAMOATE 25 MG CAPSULE (FP) PO PRN (12:09)
[2020-02-28] MEDS: MELATONIN 5 MG TABLETS PO SCH (21:37)
[2020-02-28] MEDS: QUEtiapine FUMARATE 100 MG TABLET (FP) PO SCH (21:37)
[2020-02-28] MEDS: THIAMINE HCL 100 MG TABLET (FP) PO SCH (21:37)
[2020-02-29] MEDS ORDERED: METHADONE HCL 40 MG DISPERSABLE TABLET ONE (05:32)
[2020-02-29] MEDS ORDERED: METHADONE HCL 10 MG TABLET ONE (05:33)
[2020-02-29] MEDS: METHADONE 80 MG, METHADONE 10 MG PO SCH (06:10)
[2020-02-29] MEDS: AMOXICILLIN 500 MG CAPSULE (FP) PO SCH ×2 (10:08→21:09)
[2020-02-29] MEDS: METHOCARBAMOL 500 MG TABLET PO SCH ×4 (10:08→21:09)
[2020-02-29] MEDS: NICOTINE 21 MG/24 HOURS TOPICAL PATCH TD SCH (10:08)
[2020-02-29] MEDS: PRENATAL VITAMINS W/ FOLIC ACID TABLET (FP) PO SCH (10:08)
[2020-02-29] MEDS: hydrOXYzine PAMOATE 25 MG CAPSULE (FP) PO PRN ×3 (10:09→19:17)
[2020-02-29] MEDS: QUEtiapine FUMARATE 100 MG TABLET (FP) PO SCH (21:09)
[2020-02-29] MEDS: THIAMINE HCL 100 MG TABLET (FP) PO SCH (21:09)
[2020-02-29] MEDS: MELATONIN 5 MG TABLETS PO SCH (21:10)
[2020-03-01] MEDS ORDERED: METHADONE HCL 40 MG DISPERSABLE TABLET ONE (03:16)
[2020-03-01] MEDS ORDERED: METHADONE HCL 10 MG TABLET ONE (03:16)
[2020-03-01] MEDS: METHADONE 80 MG, METHADONE 10 MG PO SCH (06:22)
[2020-03-01] MEDS: PRENATAL VITAMINS W/ FOLIC ACID TABLET (FP) PO SCH (09:46)
[2020-03-01] MEDS: METHOCARBAMOL 500 MG TABLET PO SCH ×4 (09:46→21:36)
[2020-03-01] MEDS: AMOXICILLIN 500 MG CAPSULE (FP) PO SCH ×2 (09:46→21:36)
[2020-03-01] MEDS: hydrOXYzine PAMOATE 25 MG CAPSULE (FP) PO PRN (09:46)
[2020-03-01] MEDS: NICOTINE 21 MG/24 HOURS TOPICAL PATCH TD SCH (09:47)
[2020-03-01] MEDS: QUEtiapine FUMARATE 100 MG TABLET (FP) PO SCH (21:36)
[2020-03-01] MEDS: MELATONIN 5 MG TABLETS PO SCH (21:36)
[2020-03-01] MEDS: THIAMINE HCL 100 MG TABLET (FP) PO SCH (21:36)
[2020-03-02] MEDS ORDERED: METHADONE HCL 10 MG TABLET ONE (05:35)
[2020-03-02] MEDS ORDERED: METHADONE HCL 40 MG DISPERSABLE TABLET ONE (05:35)
[2020-03-02] MEDS: METHADONE 80 MG, METHADONE 10 MG PO SCH (06:29)
[2020-03-02] MEDS: NICOTINE 21 MG/24 HOURS TOPICAL PATCH TD SCH (09:53)
[2020-03-02] MEDS: PRENATAL VITAMINS W/ FOLIC ACID TABLET (FP) PO SCH (09:53)
[2020-03-02] MEDS: AMOXICILLIN 500 MG CAPSULE (FP) PO SCH ×2 (09:53→21:10)
[2020-03-02] MEDS: METHOCARBAMOL 500 MG TABLET PO SCH ×4 (09:53→21:10)
[2020-03-02] MEDS: hydrOXYzine PAMOATE 25 MG CAPSULE (FP) PO PRN (14:40)
[2020-03-02] MEDS ORDERED: PT OWN MED DRAWER 7, Y5N ONE (19:03)
[2020-03-02] MEDS: THIAMINE HCL 100 MG TABLET (FP) PO SCH (21:10)
[2020-03-02] MEDS: QUEtiapine FUMARATE 100 MG TABLET (FP) PO SCH (21:10)
[2020-03-02] MEDS: MELATONIN 5 MG TABLETS PO SCH (21:10)
[2020-03-03] MEDS ORDERED: METHADONE HCL 10 MG TABLET ONE (05:40)
[2020-03-03] MEDS ORDERED: METHADONE HCL 40 MG DISPERSABLE TABLET ONE (05:40)
[2020-03-03] MEDS: METHADONE 80 MG, METHADONE 10 MG PO SCH (06:36)
[2020-03-03] MEDS: METHOCARBAMOL 500 MG TABLET PO SCH ×4 (10:14→21:40)
[2020-03-03] MEDS: hydrOXYzine PAMOATE 25 MG CAPSULE (FP) PO PRN (10:14)
[2020-03-03] MEDS: AMOXICILLIN 500 MG CAPSULE (FP) PO SCH ×2 (10:14→21:40)
[2020-03-03] MEDS: PRENATAL VITAMINS W/ FOLIC ACID TABLET (FP) PO SCH (10:14)
[2020-03-03] MEDS: NICOTINE 21 MG/24 HOURS TOPICAL PATCH TD SCH (10:15)
[2020-03-03] MEDS: QUEtiapine FUMARATE 100 MG TABLET (FP) PO SCH (21:40)
[2020-03-03] MEDS: MELATONIN 5 MG TABLETS PO SCH (21:40)
[2020-03-03] MEDS: THIAMINE HCL 100 MG TABLET (FP) PO SCH (21:40)
[2020-03-04] MEDS ORDERED: METHADONE HCL 10 MG TABLET ONE (05:34)
[2020-03-04] MEDS ORDERED: METHADONE HCL 40 MG DISPERSABLE TABLET ONE (05:34)
[2020-03-04] MEDS: METHADONE 80 MG, METHADONE 10 MG PO SCH (06:37)
[2020-03-04] MEDS: NICOTINE 21 MG/24 HOURS TOPICAL PATCH TD SCH (10:36)
[2020-03-04] MEDS: METHOCARBAMOL 500 MG TABLET PO SCH ×4 (10:37→21:07)
[2020-03-04] MEDS: PRENATAL VITAMINS W/ FOLIC ACID TABLET (FP) PO SCH (10:37)
[2020-03-04] MEDS: IBUPROFEN 400 MG TABLET (FP) PO PRN (18:52)
[2020-03-04] MEDS: MELATONIN 5 MG TABLETS PO SCH (21:07)
[2020-03-04] MEDS: THIAMINE HCL 100 MG TABLET (FP) PO SCH (21:07)
[2020-03-04] MEDS: QUEtiapine FUMARATE 100 MG TABLET (FP) PO SCH (21:07)
[2020-03-05] MEDS ORDERED: METHADONE HCL 10 MG TABLET ONE (05:11)
[2020-03-05] MEDS ORDERED: METHADONE HCL 40 MG DISPERSABLE TABLET ONE (05:11)
[2020-03-05] MEDS: METHADONE 80 MG, METHADONE 10 MG PO SCH (06:36)
[2020-03-05] MEDS: METHOCARBAMOL 500 MG TABLET PO SCH ×4 (10:36→21:37)
[2020-03-05] MEDS: PRENATAL VITAMINS W/ FOLIC ACID TABLET (FP) PO SCH (10:36)
[2020-03-05] MEDS: NICOTINE 21 MG/24 HOURS TOPICAL PATCH TD SCH (10:36)
[2020-03-05] MEDS: THIAMINE HCL 100 MG TABLET (FP) PO SCH (21:37)
[2020-03-05] MEDS: MELATONIN 5 MG TABLETS PO SCH (21:38)
[2020-03-05] MEDS: QUEtiapine FUMARATE 100 MG TABLET (FP) PO SCH (21:38)
[2020-03-06] MEDS ORDERED: METHADONE HCL 40 MG DISPERSABLE TABLET ONE (03:45)
[2020-03-06] MEDS ORDERED: METHADONE HCL 10 MG TABLET ONE (03:46)
[2020-03-06] MEDS: METHADONE 80 MG, METHADONE 10 MG PO SCH (06:31)
[2020-03-06] MEDS: NICOTINE 21 MG/24 HOURS TOPICAL PATCH TD SCH (10:18)
[2020-03-06] MEDS: METHOCARBAMOL 500 MG TABLET PO SCH ×4 (10:18→21:07)
[2020-03-06] MEDS: PRENATAL VITAMINS W/ FOLIC ACID TABLET (FP) PO SCH (10:18)
[2020-03-06] MEDS: hydrOXYzine PAMOATE 25 MG CAPSULE (FP) PO PRN (14:30)
[2020-03-06] MEDS: QUEtiapine FUMARATE 100 MG TABLET (FP) PO SCH (21:07)
[2020-03-06] MEDS: THIAMINE HCL 100 MG TABLET (FP) PO SCH (21:07)
[2020-03-06] MEDS: MELATONIN 5 MG TABLETS PO SCH (21:07)
[2020-03-07] MEDS ORDERED: METHADONE HCL 40 MG DISPERSABLE TABLET ONE (03:28)
[2020-03-07] MEDS ORDERED: METHADONE HCL 10 MG TABLET ONE (03:28)
[2020-03-07] MEDS: METHADONE 80 MG, METHADONE 10 MG PO SCH (06:35)
[2020-03-07] MEDS: PRENATAL VITAMINS W/ FOLIC ACID TABLET (FP) PO SCH (10:05)
[2020-03-07] MEDS: METHOCARBAMOL 500 MG TABLET PO SCH ×4 (10:05→21:42)
[2020-03-07] MEDS: NICOTINE 21 MG/24 HOURS TOPICAL PATCH TD SCH ×2 (10:05→10:06)
[2020-03-07] MEDS: IBUPROFEN 400 MG TABLET (FP) PO PRN (17:14)
[2020-03-07] MEDS: THIAMINE HCL 100 MG TABLET (FP) PO SCH (21:41)
[2020-03-07] MEDS: QUEtiapine FUMARATE 100 MG TABLET (FP) PO SCH (21:42)
[2020-03-07] MEDS: MELATONIN 5 MG TABLETS PO SCH (21:42)
[2020-03-08] MEDS ORDERED: METHADONE HCL 40 MG DISPERSABLE TABLET ONE (05:34)
[2020-03-08] MEDS ORDERED: METHADONE HCL 10 MG TABLET ONE (05:34)
[2020-03-08] MEDS: METHADONE 80 MG, METHADONE 10 MG PO SCH (06:34)
[2020-03-08] MEDS: NICOTINE 21 MG/24 HOURS TOPICAL PATCH TD SCH (10:39)
[2020-03-08] MEDS: METHOCARBAMOL 500 MG TABLET PO SCH ×4 (10:39→21:09)
[2020-03-08] MEDS: PRENATAL VITAMINS W/ FOLIC ACID TABLET (FP) PO SCH (10:39)
[2020-03-08] MEDS: QUEtiapine FUMARATE 100 MG TABLET (FP) PO SCH (21:09)
[2020-03-08] MEDS: THIAMINE HCL 100 MG TABLET (FP) PO SCH (21:09)
[2020-03-08] MEDS: MELATONIN 5 MG TABLETS PO SCH (21:09)
[2020-03-09] MEDS ORDERED: METHADONE HCL 40 MG DISPERSABLE TABLET ONE (05:39)
[2020-03-09] MEDS ORDERED: METHADONE HCL 10 MG TABLET ONE (05:39)
[2020-03-09] MEDS: METHADONE 80 MG, METHADONE 10 MG PO SCH (06:24)
[2020-03-09] MEDS: PRENATAL VITAMINS W/ FOLIC ACID TABLET (FP) PO SCH (09:58)
[2020-03-09] MEDS: METHOCARBAMOL 500 MG TABLET PO SCH ×4 (09:58→21:37)
[2020-03-09] MEDS: NICOTINE 21 MG/24 HOURS TOPICAL PATCH TD SCH (09:58)
[2020-03-09] MEDS: QUEtiapine FUMARATE 100 MG TABLET (FP) PO SCH (21:37)
[2020-03-09] MEDS: MELATONIN 5 MG TABLETS PO SCH (21:37)
[2020-03-09] MEDS: THIAMINE HCL 100 MG TABLET (FP) PO SCH (21:37)
[2020-03-10] MEDS ORDERED: METHADONE HCL 40 MG DISPERSABLE TABLET ONE (05:37)
[2020-03-10] MEDS ORDERED: METHADONE HCL 10 MG TABLET ONE (05:37)
[2020-03-10] MEDS: METHADONE 80 MG, METHADONE 10 MG PO SCH (06:05)
[2020-03-10] MEDS: METHOCARBAMOL 500 MG TABLET PO SCH ×4 (09:48→21:05)
[2020-03-10] MEDS: NICOTINE 21 MG/24 HOURS TOPICAL PATCH TD SCH (09:48)
[2020-03-10] MEDS: hydrOXYzine PAMOATE 25 MG CAPSULE (FP) PO PRN (09:48)
[2020-03-10] MEDS: PRENATAL VITAMINS W/ FOLIC ACID TABLET (FP) PO SCH (09:48)
--- NOTE | 2020-03-10 15:37 | PN ---
[facility] Progress Note Note: c/o dizziness and lightheadedness in AM; believes it may be related to low blood sugar. Vital Signs Period Temp Pulse Resp BP Sys/Foss Pulse Ox Last 24 Hr 97 F-98.4 F 58 18 117/74 97-98 general: no apparent distress HEENTM: normocephalic, PERRLA, EOMI Neuro: no cognitive deficits, CN 2-12 intact Dizziness Will check fasting BGM in AM, continue to monitor.
[2020-03-10] MEDS: THIAMINE HCL 100 MG TABLET (FP) PO SCH (21:05)
[2020-03-10] MEDS: MELATONIN 5 MG TABLETS PO SCH (21:05)
[2020-03-10] MEDS: QUEtiapine FUMARATE 100 MG TABLET (FP) PO SCH (21:05)
[2020-03-11] MEDS ORDERED: METHADONE HCL 40 MG DISPERSABLE TABLET ONE (03:22)
[2020-03-11] MEDS ORDERED: METHADONE HCL 10 MG TABLET ONE (03:22)
[2020-03-11] MEDS: METHADONE 80 MG, METHADONE 10 MG PO SCH (06:09)
[2020-03-11] MEDS: METHOCARBAMOL 500 MG TABLET PO SCH ×4 (10:10→21:39)
[2020-03-11] MEDS: hydrOXYzine PAMOATE 25 MG CAPSULE (FP) PO PRN (10:10)
[2020-03-11] MEDS: PRENATAL VITAMINS W/ FOLIC ACID TABLET (FP) PO SCH (10:10)
[2020-03-11] MEDS: NICOTINE 21 MG/24 HOURS TOPICAL PATCH TD SCH (10:10)
[2020-03-11] MEDS ORDERED: PT OWN MED DRAWER 7, Y5N ONE (10:40)
[2020-03-11] MEDS: MELATONIN 5 MG TABLETS PO SCH (21:39)
[2020-03-11] MEDS: QUEtiapine FUMARATE 100 MG TABLET (FP) PO SCH (21:39)
[2020-03-11] MEDS: THIAMINE HCL 100 MG TABLET (FP) PO SCH (21:39)
[2020-03-12] MEDS ORDERED: METHADONE HCL 10 MG TABLET ONE (03:04)
[2020-03-12] MEDS ORDERED: METHADONE HCL 40 MG DISPERSABLE TABLET ONE (03:04)
[2020-03-12] MEDS: METHADONE 80 MG, METHADONE 10 MG PO SCH (06:30)
[2020-03-12] MEDS: hydrOXYzine PAMOATE 25 MG CAPSULE (FP) PO PRN ×2 (10:10→22:00)
[2020-03-12] MEDS: NICOTINE 21 MG/24 HOURS TOPICAL PATCH TD SCH (10:10)
[2020-03-12] MEDS: PRENATAL VITAMINS W/ FOLIC ACID TABLET (FP) PO SCH (10:10)
[2020-03-12] MEDS: METHOCARBAMOL 500 MG TABLET PO SCH ×4 (10:10→22:00)
[2020-03-12] MEDS: MELATONIN 5 MG TABLETS PO SCH (22:00)
[2020-03-12] MEDS: QUEtiapine FUMARATE 100 MG TABLET (FP) PO SCH (22:00)
[2020-03-12] MEDS: THIAMINE HCL 100 MG TABLET (FP) PO SCH (22:00)
[2020-03-13] MEDS ORDERED: METHADONE HCL 10 MG TABLET ONE (05:30)
[2020-03-13] MEDS ORDERED: METHADONE HCL 40 MG DISPERSABLE TABLET ONE (05:30)
[2020-03-13] MEDS: METHADONE 80 MG, METHADONE 10 MG PO SCH (06:50)
[2020-03-13] MEDS: METHOCARBAMOL 500 MG TABLET PO SCH ×4 (10:21→21:13)
[2020-03-13] MEDS: hydrOXYzine PAMOATE 25 MG CAPSULE (FP) PO PRN (10:21)
[2020-03-13] MEDS: PRENATAL VITAMINS W/ FOLIC ACID TABLET (FP) PO SCH (10:21)
[2020-03-13] MEDS: NICOTINE 21 MG/24 HOURS TOPICAL PATCH TD SCH (10:21)
[2020-03-13] MEDS: QUEtiapine FUMARATE 100 MG TABLET (FP) PO SCH (21:12)
[2020-03-13] MEDS: MELATONIN 5 MG TABLETS PO SCH (21:13)
[2020-03-13] MEDS: THIAMINE HCL 100 MG TABLET (FP) PO SCH (21:13)
[2020-03-14] MEDS ORDERED: METHADONE HCL 40 MG DISPERSABLE TABLET ONE (05:36)
[2020-03-14] MEDS ORDERED: METHADONE HCL 10 MG TABLET ONE (05:36)
[2020-03-14] MEDS: METHADONE 80 MG, METHADONE 10 MG PO SCH (06:14)
[2020-03-14] MEDS: NICOTINE 21 MG/24 HOURS TOPICAL PATCH TD SCH (10:09)
[2020-03-14] MEDS: hydrOXYzine PAMOATE 25 MG CAPSULE (FP) PO PRN ×3 (10:09→21:46)
[2020-03-14] MEDS: METHOCARBAMOL 500 MG TABLET PO SCH ×4 (10:09→21:46)
[2020-03-14] MEDS: PRENATAL VITAMINS W/ FOLIC ACID TABLET (FP) PO SCH (10:09)
[2020-03-14] MEDS: THIAMINE HCL 100 MG TABLET (FP) PO SCH (21:46)
[2020-03-14] MEDS: MELATONIN 5 MG TABLETS PO SCH (21:46)
[2020-03-14] MEDS: QUEtiapine FUMARATE 100 MG TABLET (FP) PO SCH (21:47)
[2020-03-15] MEDS ORDERED: METHADONE HCL 10 MG TABLET ONE (03:21)
[2020-03-15] MEDS ORDERED: METHADONE HCL 40 MG DISPERSABLE TABLET ONE (03:21)
[2020-03-15] MEDS: METHADONE 80 MG, METHADONE 10 MG PO SCH (06:24)
[2020-03-15] MEDS: NICOTINE 21 MG/24 HOURS TOPICAL PATCH TD SCH (09:53)
[2020-03-15] MEDS: PRENATAL VITAMINS W/ FOLIC ACID TABLET (FP) PO SCH (09:53)
[2020-03-15] MEDS: METHOCARBAMOL 500 MG TABLET PO SCH ×4 (09:53→21:35)
[2020-03-15] MEDS: hydrOXYzine PAMOATE 25 MG CAPSULE (FP) PO PRN (09:53)
[2020-03-15] MEDS ORDERED: PT OWN MED DRAWER 7, Y5N ONE (10:48)
--- NOTE | 2020-03-15 15:13 | PN ---
[facility] Progress Note Note: Informed by Director Cinthia Weir that patient reported (to director) that another peer ( Javier Rodríguez [phone]) gave methadone to peer Brant (in [address]). Patient is currently on MMTP. Urine toxicology ordered and positive for MTD only. Vital Signs Temperature 97.1 F L 03/15/20 06:22 Pulse Rate 61 03/15/20 06:22 Respiratory Rate 16 03/15/20 06:22 Blood Pressure 114/68 03/15/20 06:22 O2 Sat by Pulse Oximetry (%) 96 03/15/20 06:22
[2020-03-15] MEDS: THIAMINE HCL 100 MG TABLET (FP) PO SCH (21:35)
[2020-03-15] MEDS: QUEtiapine FUMARATE 100 MG TABLET (FP) PO SCH (21:35)
[2020-03-15] MEDS: MELATONIN 5 MG TABLETS PO SCH (21:35)
[2020-03-16] MEDS ORDERED: METHADONE HCL 10 MG TABLET ONE (03:19)
[2020-03-16] MEDS ORDERED: METHADONE HCL 40 MG DISPERSABLE TABLET ONE (03:19)
[2020-03-16] MEDS: METHADONE 80 MG, METHADONE 10 MG PO SCH (05:59)
[2020-03-16] MEDS ORDERED: PT OWN MED DRAWER 7, Y5N ONE (08:45)
[2020-03-16] MEDS: METHOCARBAMOL 500 MG TABLET PO SCH ×4 (10:25→21:08)
[2020-03-16] MEDS: PRENATAL VITAMINS W/ FOLIC ACID TABLET (FP) PO SCH (10:25)
[2020-03-16] MEDS: hydrOXYzine PAMOATE 25 MG CAPSULE (FP) PO PRN ×2 (10:25→14:11)
[2020-03-16] MEDS: NICOTINE 21 MG/24 HOURS TOPICAL PATCH TD SCH (10:28)
[2020-03-16] MEDS: QUEtiapine FUMARATE 100 MG TABLET (FP) PO SCH (21:08)
[2020-03-16] MEDS: THIAMINE HCL 100 MG TABLET (FP) PO SCH (21:08)
[2020-03-16] MEDS: MELATONIN 5 MG TABLETS PO SCH (21:08)
[2020-03-17] MEDS ORDERED: METHADONE HCL 40 MG DISPERSABLE TABLET ONE (05:57)
[2020-03-17] MEDS ORDERED: METHADONE HCL 10 MG TABLET ONE (05:57)
[2020-03-17] MEDS ORDERED: METHADONE HCL 10 MG TABLET PO SCH (06:00)
[2020-03-17] MEDS: METHADONE 80 MG, METHADONE 10 MG PO SCH (06:28)
[2020-03-17] MEDS: PRENATAL VITAMINS W/ FOLIC ACID TABLET (FP) PO SCH (09:37)
[2020-03-17] MEDS: METHOCARBAMOL 500 MG TABLET PO SCH ×4 (09:37→21:59)
[2020-03-17] MEDS: hydrOXYzine PAMOATE 25 MG CAPSULE (FP) PO PRN (09:37)
[2020-03-17] MEDS: NICOTINE 21 MG/24 HOURS TOPICAL PATCH TD SCH (09:38)
--- NOTE | 2020-03-17 12:05 | PN ---
[facility] Progress Note Note: Patient is scheduled for discharge tomorrow. Script for 30 days supply of Seroquel 100 mg/hs will be electronically transmitted to [facility], [address] [place] [id number]
[2020-03-17] MEDS: QUEtiapine FUMARATE 100 MG TABLET (FP) PO SCH (21:59)
[2020-03-17] MEDS: MELATONIN 5 MG TABLETS PO SCH (21:59)
[2020-03-17] MEDS: THIAMINE HCL 100 MG TABLET (FP) PO SCH (21:59)
[2020-03-18] MEDS ORDERED: METHADONE HCL 10 MG TABLET ONE (05:36)
[2020-03-18] MEDS ORDERED: METHADONE HCL 40 MG DISPERSABLE TABLET ONE (05:36)
[2020-03-18] MEDS: METHADONE 80 MG, METHADONE 10 MG PO SCH (06:31)
[2020-03-18 07:03] VITALS: BP 105/67; PULSE 73; TEMP 97
--- NOTE | 2020-03-18 08:39 | DS ---
[facility] Rehab Discharge Summary - [facility] Rehab Discharge Summary Admission Date: 02/20/20 Discharge Date: 03/18/20 - History Present History: Alcohol dependence, Cocaine dependence, Opioid dependence Pertinent Past History: Mr. Chase is a 30 yo man who presents to [facility] after Klonopin detox at [facility] PMH: untreated Hep C PSH: none Psych: PTSD he attributes to Prison SOC: homeless Legal: none, was in [facility] for 2 years - Discharge Physical Exam Vital Signs: Vital Signs Temperature 97 F L 03/18/20 06:25 Pulse Rate 73 03/18/20 06:25 Respiratory Rate 18 03/18/20 06:25 Blood Pressure 105/67 03/18/20 06:25 O2 Sat by Pulse Oximetry (%) 99 03/18/20 06:25 Pertinent Admission Physical Exam Findings: Physical General Appearance: No Apparent Distress, HEENTM: EOMI, Respiratory: No Respiratory Distress, No Accessory Muscle Use Neck: Supple Abdominal: + BS Musculoskeletal: Gait Steady, full ROM, full weight bearing - Treatment Discharge Condition: Discharge condition good (medically stable for discharge.), Outpatient referral accepted (Patient will go to [facility] for aftercare/) Hospital Course: Patient attended groups, had 1:1 with his counselor, was seen by the psychiatric service. He was adherent to his medication regimen and treatment plan. He was seen by the medical provider for a toothache and for dizziness. Both issues were resolved. He had no other medical problems while in rehab. - Medication Discharge Medications: Ambulatory Orders Quetiapine Fumarate [Seroquel -] 100 mg PO HS #30 tablet 03/17/20 - Medication-Assisted Treatment (MAT) Medication-Assisted Treatment (MAT): No - Discharge Instructions Diet, activity, other medical instructions: Diet: as tolerated Activity: as tolerated Other medical instructions: Please follow up with aftercare referral. - Diagnosis (1) Alcohol use disorder Current Visit: Yes Status: Chronic (2) Cocaine dependence Current Visit: Yes Status: Chronic Qualifiers: Substance use status: uncomplicated Qualified Code(s): F14.20 - Cocaine dependence, uncomplicated (3) Sedative, hypnotic or anxiolytic dependence, uncomplicated Current Visit: Yes Status: Chronic - Follow-up Referral Minutes to complete discharge: 15 - AMA Did Patient Leave Against Medical Advice: No
== END 2020-03-18 08:46 | disposition home or self-care (01) | DRG 772 ==
LOC: YASAS 12:02 → Y5N 13:04 → Y3W 14:13
PROVIDERS: ADMIT Allergy & Immunology; ATTEND Allergy & Immunology
PROC: HZ42ZZZ Group Counseling for Substance Abuse Treatment, Cognitive-Behavioral (ICD-10-PCS; principal; 2020-02-20)
DX: F10.20 Alcohol dependence, uncomplicated (principal); F11.20 Opioid dependence, uncomplicated; F14.20 Cocaine dependence, uncomplicated; F13.20 Sedative, hypnotic or anxiolytic dependence, uncomplicated; F17.210 Nicotine dependence, cigarettes, uncomplicated; F19.282 Other psychoactive substance dependence with psychoactive substance-induced sleep disorder; F43.10 Post-traumatic stress disorder, unspecified; G47.00 Insomnia, unspecified; K05.10 Chronic gingivitis, plaque induced; K04.7 Periapical abscess without sinus; Z56.0 Unemployment, unspecified; Z59.0 Homelessness
CPT/HCPCS: 36415; 80053; 81003; 82962; 85027; 85660; 86780; 93005; 93010

== ENCOUNTER 2022-01-01 06:52 | Inpatient (IN) | payer OTHER ==
[2022-01-01] MEDS ORDERED: BENZOCAINE/MENTHOL (CHLORASEPTIC ) LOZENGE MM PRN (09:11)
[2022-01-01] MEDS ORDERED: NICOTINE 10 MG CARTRIDGE (INHALER) IH PRN (09:11)
[2022-01-01] MEDS ORDERED: ACETAMINOPHEN 325 MG TABLET (FP) PO PRN ×2 (09:11)
[2022-01-01] MEDS ORDERED: NALOXONE HCL (KLOXXADO) 8 MG SPRAY NS PRN (09:11)
[2022-01-01] MEDS ORDERED: cloNIDine HCL 0.1 MG TABLET PO PRN (09:11)
[2022-01-01] MEDS ORDERED: DICYCLOMINE HCL 10 MG CAPSULE PO PRN (09:11)
[2022-01-01] MEDS ORDERED: BISMUTH SUBSALICYLATE 524 MG/30 ML PO PRN (09:11)
[2022-01-01] MEDS ORDERED: methaDONE HCL 10 MG TABLET (FOR DETOX USE ONLY) PO ONE (09:11)
[2022-01-01] MEDS ORDERED: MAGNESIUM HYDROX 2400MG/30ML ORAL SUSPENSION 30 ML CUP PO PRN (09:11)
[2022-01-01] MEDS ORDERED: ONDANSETRON *ODT* 4 MG TABLET SL PRN (09:11)
[2022-01-01] MEDS ORDERED: MAGNESIUM CITRATE 300 ML BOTTLE PO PRN (09:11)
[2022-01-01] MEDS ORDERED: LOPERAMIDE HCL 2 MG CAPSULE PO PRN (09:11)
[2022-01-01] MEDS ORDERED: MAG HYDROX/AL HYDROX/SIMETH 30 ML UNIT-DOSE CUP PO PRN (09:11)
[2022-01-01] MEDS ORDERED: IBUPROFEN 600 MG TABLET (FP) PO PRN (09:11)
[2022-01-01] MEDS ORDERED: IBUPROFEN 400 MG TABLET (FP) PO PRN (09:11)
[2022-01-01] MEDS: PRENATAL VITAMINS W/ FOLIC ACID TABLET (FP) PO SCH (11:16)
[2022-01-01] MEDS: hydrOXYzine PAMOATE 25 MG CAPSULE (FP) PO SCH ×4 (11:17→22:32)
[2022-01-01] MEDS: diazePAM 5 MG TABLET PO SCH ×3 (11:17→22:33)
[2022-01-01] MEDS: diazePAM 5 MG TABLET PO PRN (14:35)
[2022-01-01] MEDS: THIAMINE HCL 100 MG TABLET (FP) PO SCH (22:33)
[2022-01-01] MEDS: MELATONIN 5 MG TABLETS PO SCH (22:33)
[2022-01-01] MEDS: METHOCARBAMOL 500 MG TABLET PO PRN (22:34)
[2022-01-02] MEDS: diazePAM 5 MG TABLET PO PRN ×2 (00:02→12:16)
[2022-01-02] MEDS: hydrOXYzine PAMOATE 25 MG CAPSULE (FP) PO SCH ×5 (06:10→22:39)
[2022-01-02] MEDS: diazePAM 5 MG TABLET PO SCH ×4 (06:10→22:38)
[2022-01-02] MEDS ORDERED: methaDONE HCL 10 MG TABLET (FOR DETOX USE ONLY) ONE (09:22)
[2022-01-02] MEDS: PRENATAL VITAMINS W/ FOLIC ACID TABLET (FP) PO SCH (10:28)
[2022-01-02] MEDS: METHOCARBAMOL 500 MG TABLET PO PRN (22:38)
[2022-01-02] MEDS: THIAMINE HCL 100 MG TABLET (FP) PO SCH (22:39)
[2022-01-02] MEDS: MELATONIN 5 MG TABLETS PO SCH (22:40)
[2022-01-03] MEDS: diazePAM 5 MG TABLET PO PRN ×2 (01:18→10:15)
[2022-01-03] MEDS: hydrOXYzine PAMOATE 25 MG CAPSULE (FP) PO SCH ×2 (05:10→10:14)
[2022-01-03] MEDS ORDERED: diazePAM 5 MG TABLET PO SCH (06:00)
[2022-01-03 09:36] VITALS: BP 103/52; PULSE 71; TEMP 97.3
[2022-01-03] MEDS ORDERED: methaDONE HCL 10 MG TABLET (FOR DETOX USE ONLY) PO ONE (10:00)
[2022-01-03] MEDS: PRENATAL VITAMINS W/ FOLIC ACID TABLET (FP) PO SCH (10:14)
[2022-01-04] MEDS ORDERED: diazePAM 5 MG TABLET PO SCH (06:00)
[2022-01-05] MEDS ORDERED: diazePAM 5 MG TABLET PO ONE (06:00)
[2022-01-05] MEDS ORDERED: methaDONE HCL 10 MG TABLET (FOR DETOX USE ONLY) PO ONE (10:00)
== END 2022-01-03 12:50 | disposition left against medical advice (07) | DRG 770 ==
LOC: YASAS 06:52 → Y3N 09:06
PROVIDERS: ADMIT Allergy & Immunology; ATTEND Surgery
PROC: HZ2ZZZZ Detoxification Services for Substance Abuse Treatment (ICD-10-PCS; principal; 2022-01-01)
DX: F11.23 Opioid dependence with withdrawal (principal); F10.230 Alcohol dependence with withdrawal, uncomplicated; F14.20 Cocaine dependence, uncomplicated; F17.210 Nicotine dependence, cigarettes, uncomplicated; G47.00 Insomnia, unspecified; R63.4 Abnormal weight loss; Z68.23 Body mass index [BMI] 23.0-23.9, adult; Z28.310 Unvaccinated for COVID-19; Z86.19 Personal history of other infectious and parasitic diseases; Z88.8 Allergy status to other drugs, medicaments and biological substances
CPT/HCPCS: C9803-CS; U0003; U0005

== ENCOUNTER 2022-01-24 06:22 | Inpatient (IN) | payer OTHER ==
[2022-01-24] MEDS ORDERED: cloNIDine HCL 0.1 MG TABLET PO PRN (09:03)
[2022-01-24] MEDS ORDERED: MAGNESIUM HYDROX 2400MG/30ML ORAL SUSPENSION 30 ML CUP PO PRN (09:03)
[2022-01-24] MEDS ORDERED: ACETAMINOPHEN 325 MG TABLET (FP) PO PRN ×2 (09:03)
[2022-01-24] MEDS ORDERED: NALOXONE HCL (KLOXXADO) 8 MG SPRAY NS PRN (09:03)
[2022-01-24] MEDS ORDERED: methaDONE HCL 10 MG TABLET (FOR DETOX USE ONLY) PO ONE (09:03)
[2022-01-24] MEDS ORDERED: LOPERAMIDE HCL 2 MG CAPSULE PO PRN (09:03)
[2022-01-24] MEDS ORDERED: BENZOCAINE/MENTHOL (CHLORASEPTIC ) LOZENGE MM PRN (09:03)
[2022-01-24] MEDS ORDERED: BISMUTH SUBSALICYLATE 262 MG/15 ML BTL PO PRN (09:03)
[2022-01-24] MEDS ORDERED: DICYCLOMINE HCL 10 MG CAPSULE PO PRN (09:03)
[2022-01-24] MEDS ORDERED: MAGNESIUM CITRATE 300 ML BOTTLE PO PRN (09:03)
[2022-01-24] MEDS ORDERED: IBUPROFEN 400 MG TABLET (FP) PO PRN (09:03)
[2022-01-24] MEDS ORDERED: NICOTINE 10 MG CARTRIDGE (INHALER) IH PRN (09:03)
[2022-01-24] MEDS ORDERED: IBUPROFEN 600 MG TABLET (FP) PO PRN (09:03)
[2022-01-24] MEDS ORDERED: ONDANSETRON *ODT* 4 MG TABLET SL PRN (09:03)
[2022-01-24] MEDS ORDERED: METHOCARBAMOL 500 MG TABLET PO PRN (09:03)
[2022-01-24] MEDS ORDERED: MAG HYDROX/AL HYDROX/SIMETH 30 ML UNIT-DOSE CUP PO PRN (09:03)
[2022-01-24] MEDS ORDERED: NICOTINE POLACRILEX 2 MG GUM BUC PRN (09:16)
[2022-01-24] MEDS: PRENATAL VITAMINS W/ FOLIC ACID TABLET (FP) PO SCH (10:42)
[2022-01-24] MEDS: hydrOXYzine PAMOATE 25 MG CAPSULE (FP) PO SCH ×4 (10:42→22:15)
[2022-01-24] MEDS: diazePAM 5 MG TABLET PO SCH ×3 (10:44→22:15)
[2022-01-24] MEDS: diazePAM 5 MG TABLET PO PRN (14:08)
[2022-01-24 15:19] LABS: HEMATOCRIT 34.5 % (35.4-49); HEMOGLOBIN 11.4 GM/dL (11.7-16.9); MCH 27.3 pg (25.7-33.7); MCHC 33.1 g/dl (32.0-35.9); MEAN CELL VOLUME 82.6 fl (80-96); MEAN PLT VOLUME 8.3 fl (7.5-11.1); PLATELET COUNT 241 10^3/uL (134-434); RBC 4.18 M/mm3 (4.00-5.60); RDW 14.5 % (11.9-15.9); WHITE BLOOD COUNT 9.6 K/mm3 (4.0-10.0)
[2022-01-24 15:23] LABS: ALBUMIN 3.2 g/dl (3.4-5.0); BLOOD UREA NITROGEN 15.5 mg/dL (7-18); CALCIUM 8.6 mg/dL (8.5-10.1)
[2022-01-24 15:27] LABS: CREATININE 0.8 mg/dL (0.55-1.3)
[2022-01-24 15:28] LABS: BILIRUBIN,TOTAL 0.3 mg/dL (0.2-1); TOT PROT 7.1 g/dl (6.4-8.2)
[2022-01-24] MEDS: MELATONIN 5 MG TABLETS PO SCH (22:14)
[2022-01-24] MEDS: THIAMINE HCL 100 MG TABLET (FP) PO SCH (22:15)
[2022-01-25] MEDS: diazePAM 5 MG TABLET PO SCH ×4 (05:15→22:30)
[2022-01-25] MEDS: hydrOXYzine PAMOATE 25 MG CAPSULE (FP) PO SCH ×5 (05:15→22:29)
[2022-01-25] MEDS: PRENATAL VITAMINS W/ FOLIC ACID TABLET (FP) PO SCH (10:07)
[2022-01-25] MEDS: THIAMINE HCL 100 MG TABLET (FP) PO SCH (22:29)
[2022-01-25] MEDS: MELATONIN 5 MG TABLETS PO SCH (22:29)
[2022-01-26] MEDS: hydrOXYzine PAMOATE 25 MG CAPSULE (FP) PO SCH ×5 (05:23→22:15)
[2022-01-26] MEDS: diazePAM 5 MG TABLET PO SCH ×3 (05:23→22:14)
[2022-01-26] MEDS ORDERED: methaDONE HCL 10 MG TABLET (FOR DETOX USE ONLY) PO ONE (10:00)
[2022-01-26] MEDS: PRENATAL VITAMINS W/ FOLIC ACID TABLET (FP) PO SCH (10:23)
[2022-01-26] MEDS: diazePAM 5 MG TABLET PO PRN ×2 (10:24→18:05)
[2022-01-26] MEDS: THIAMINE HCL 100 MG TABLET (FP) PO SCH (22:14)
[2022-01-26] MEDS: MELATONIN 5 MG TABLETS PO SCH (22:14)
[2022-01-27] MEDS: hydrOXYzine PAMOATE 25 MG CAPSULE (FP) PO SCH (05:00)
[2022-01-27] MEDS ORDERED: diazePAM 5 MG TABLET PO SCH (06:00)
[2022-01-27 06:53] VITALS: BP 90/56; PULSE 57; RESP 18; TEMP 97.5
[2022-01-28] MEDS ORDERED: diazePAM 5 MG TABLET PO ONE (06:00)
[2022-01-28] MEDS ORDERED: methaDONE HCL 10 MG TABLET (FOR DETOX USE ONLY) PO ONE (10:00)
== END 2022-01-27 09:15 | disposition left against medical advice (07) | DRG 770 ==
LOC: YASAS 06:22 → SUATTDRO 06:22 → Y3N 09:52
PROVIDERS: ADMIT Allergy & Immunology; ATTEND Surgery
PROC: HZ2ZZZZ Detoxification Services for Substance Abuse Treatment (ICD-10-PCS; principal; 2022-01-24)
DX: F11.23 Opioid dependence with withdrawal (principal); F10.230 Alcohol dependence with withdrawal, uncomplicated; F13.20 Sedative, hypnotic or anxiolytic dependence, uncomplicated; F14.20 Cocaine dependence, uncomplicated; F12.10 Cannabis abuse, uncomplicated; F17.210 Nicotine dependence, cigarettes, uncomplicated; Z28.310 Unvaccinated for COVID-19; Z28.20 Immunization not carried out because of patient decision for unspecified reason; Z86.19 Personal history of other infectious and parasitic diseases; Z88.8 Allergy status to other drugs, medicaments and biological substances
CPT/HCPCS: 36415; 80053; 85027; 86780; C9803-CS; U0003; U0005

== ENCOUNTER 2022-02-01 13:22 | Inpatient (IN) | payer OTHER ==
[2022-02-01 16:20] VITALS: BMI 22.8
[2022-02-01] MEDS ORDERED: IBUPROFEN 400 MG TABLET (FP) PO PRN (16:22)
[2022-02-01] MEDS ORDERED: BENZOCAINE/MENTHOL (CHLORASEPTIC ) LOZENGE MM PRN (16:22)
[2022-02-01] MEDS ORDERED: MAG HYDROX/AL HYDROX/SIMETH 30 ML UNIT-DOSE CUP PO PRN (16:22)
[2022-02-01] MEDS ORDERED: ONDANSETRON *ODT* 4 MG TABLET SL PRN (16:22)
[2022-02-01] MEDS ORDERED: MAGNESIUM CITRATE 300 ML BOTTLE PO PRN (16:22)
[2022-02-01] MEDS ORDERED: BISMUTH SUBSALICYLATE 524 MG/30 ML PO PRN (16:22)
[2022-02-01] MEDS ORDERED: cloNIDine HCL 0.1 MG TABLET PO PRN (16:22)
[2022-02-01] MEDS ORDERED: DICYCLOMINE HCL 10 MG CAPSULE PO PRN (16:22)
[2022-02-01] MEDS ORDERED: MAGNESIUM HYDROX 2400MG/30ML ORAL SUSPENSION 30 ML CUP PO PRN (16:22)
[2022-02-01] MEDS ORDERED: LOPERAMIDE HCL 2 MG CAPSULE PO PRN (16:22)
[2022-02-01] MEDS ORDERED: ACETAMINOPHEN 325 MG TABLET (FP) PO PRN ×2 (16:22)
[2022-02-01] MEDS ORDERED: NICOTINE 10 MG CARTRIDGE (INHALER) IH PRN (16:22)
[2022-02-01] MEDS ORDERED: methaDONE HCL 10 MG TABLET (FOR DETOX USE ONLY) PO ONE (16:22)
[2022-02-01] MEDS ORDERED: diazePAM 5 MG TABLET ONE (16:43)
[2022-02-01] MEDS ORDERED: methaDONE HCL 10 MG TABLET (FOR DETOX USE ONLY) ONE (16:44)
[2022-02-01] MEDS: diazePAM 5 MG TABLET PO SCH ×2 (17:05→22:17)
[2022-02-01] MEDS: hydrOXYzine PAMOATE 25 MG CAPSULE (FP) PO SCH ×2 (17:06→22:17)
[2022-02-01] MEDS: diazePAM 5 MG TABLET PO PRN (19:55)
[2022-02-01] MEDS ORDERED: MELATONIN 5 MG TABLETS PO SCH (22:00)
[2022-02-01] MEDS: MELATONIN 5 MG TABLETS PO SCH (22:17)
[2022-02-01] MEDS: THIAMINE HCL 100 MG TABLET (FP) PO SCH (22:17)
[2022-02-02] MEDS: diazePAM 5 MG TABLET PO SCH ×4 (05:54→22:00)
[2022-02-02] MEDS: METHOCARBAMOL 500 MG TABLET PO PRN (05:54)
[2022-02-02] MEDS: hydrOXYzine PAMOATE 25 MG CAPSULE (FP) PO SCH ×5 (05:55→21:19)
[2022-02-02] MEDS: PRENATAL VITAMINS W/ FOLIC ACID TABLET (FP) PO SCH (10:31)
[2022-02-02 12:27] LABS: HEMATOCRIT 34.2 % (35.4-49); HEMOGLOBIN 11.5 GM/dL (11.7-16.9); MCH 28.1 pg (25.7-33.7); MCHC 33.8 g/dl (32.0-35.9); MEAN CELL VOLUME 83.2 fl (80-96); MEAN PLT VOLUME 8.2 fl (7.5-11.1); PLATELET COUNT 236 10^3/uL (134-434); RDW 14.9 % (11.9-15.9); WHITE BLOOD COUNT 8.1 K/mm3 (4.0-10.0)
[2022-02-02 13:00] LABS: BLOOD UREA NITROGEN 14.3 mg/dL (7-18); CALCIUM 8.7 mg/dL (8.5-10.1)
[2022-02-02 13:03] LABS: CREATININE 0.8 mg/dL (0.55-1.3)
[2022-02-02 13:05] LABS: BILIRUBIN,TOTAL 0.3 mg/dL (0.2-1)
[2022-02-02] MEDS: diazePAM 5 MG TABLET PO PRN (14:02)
[2022-02-02] MEDS: MELATONIN 5 MG TABLETS PO SCH (22:00)
[2022-02-02] MEDS: THIAMINE HCL 100 MG TABLET (FP) PO SCH (22:00)
[2022-02-03] MEDS: diazePAM 5 MG TABLET PO PRN ×3 (01:17→22:15)
[2022-02-03] MEDS: hydrOXYzine PAMOATE 25 MG CAPSULE (FP) PO SCH ×5 (05:52→22:16)
[2022-02-03] MEDS: diazePAM 5 MG TABLET PO SCH ×3 (05:52→22:16)
[2022-02-03] MEDS ORDERED: methaDONE HCL 10 MG TABLET (FOR DETOX USE ONLY) PO ONE (10:00)
[2022-02-03] MEDS: PRENATAL VITAMINS W/ FOLIC ACID TABLET (FP) PO SCH (10:22)
[2022-02-03] MEDS: METHOCARBAMOL 500 MG TABLET PO PRN ×2 (10:22→20:46)
[2022-02-03] MEDS: IBUPROFEN 600 MG TABLET (FP) PO PRN (20:46)
[2022-02-03] MEDS: THIAMINE HCL 100 MG TABLET (FP) PO SCH (22:17)
[2022-02-03] MEDS: MELATONIN 5 MG TABLETS PO SCH (22:17)
[2022-02-04] MEDS: hydrOXYzine PAMOATE 25 MG CAPSULE (FP) PO SCH ×4 (05:47→18:19)
[2022-02-04] MEDS: diazePAM 5 MG TABLET PO SCH ×2 (05:47→18:18)
[2022-02-04] MEDS: IBUPROFEN 600 MG TABLET (FP) PO PRN (06:48)
[2022-02-04] MEDS: PRENATAL VITAMINS W/ FOLIC ACID TABLET (FP) PO SCH (10:11)
[2022-02-04] MEDS: diazePAM 5 MG TABLET PO PRN ×2 (10:12→15:04)
[2022-02-04 19:15] VITALS: BP 95/50; PULSE 62; RESP 19; TEMP 97.1
[2022-02-05] MEDS ORDERED: diazePAM 5 MG TABLET PO ONE (06:00)
[2022-02-05] MEDS ORDERED: methaDONE HCL 10 MG TABLET (FOR DETOX USE ONLY) PO ONE (10:00)
== END 2022-02-04 19:37 | disposition left against medical advice (07) | DRG 770 ==
LOC: YASAS 13:22 → Y3N 16:04
PROVIDERS: ADMIT Allergy & Immunology; ATTEND Surgery
PROC: HZ2ZZZZ Detoxification Services for Substance Abuse Treatment (ICD-10-PCS; principal; 2022-02-01)
DX: F11.23 Opioid dependence with withdrawal (principal); F14.20 Cocaine dependence, uncomplicated; F13.20 Sedative, hypnotic or anxiolytic dependence, uncomplicated; F12.20 Cannabis dependence, uncomplicated; F17.213 Nicotine dependence, cigarettes, with withdrawal; F19.282 Other psychoactive substance dependence with psychoactive substance-induced sleep disorder; Z28.310 Unvaccinated for COVID-19; Z28.21 Immunization not carried out because of patient refusal; Z88.8 Allergy status to other drugs, medicaments and biological substances
CPT/HCPCS: 36415; 80053; 85027; 86780; C9803-CS; U0003; U0005

== ENCOUNTER 2022-02-06 08:41 | Inpatient (IN) | payer OTHER ==
[2022-02-06 09:35] VITALS: BMI 22.8
[2022-02-06] MEDS ORDERED: IBUPROFEN 400 MG TABLET (FP) PO PRN (10:01)
[2022-02-06] MEDS ORDERED: ACETAMINOPHEN 325 MG TABLET (FP) PO PRN ×2 (10:01)
[2022-02-06] MEDS ORDERED: MAGNESIUM CITRATE 300 ML BOTTLE PO PRN (10:01)
[2022-02-06] MEDS ORDERED: IBUPROFEN 600 MG TABLET (FP) PO PRN (10:01)
[2022-02-06] MEDS ORDERED: cloNIDine HCL 0.1 MG TABLET PO PRN (10:01)
[2022-02-06] MEDS ORDERED: LOPERAMIDE HCL 2 MG CAPSULE PO PRN (10:01)
[2022-02-06] MEDS ORDERED: BENZOCAINE/MENTHOL (CHLORASEPTIC ) LOZENGE MM PRN (10:01)
[2022-02-06] MEDS ORDERED: methaDONE HCL 10 MG TABLET (FOR DETOX USE ONLY) PO ONE (10:01)
[2022-02-06] MEDS ORDERED: ONDANSETRON *ODT* 4 MG TABLET SL PRN (10:01)
[2022-02-06] MEDS ORDERED: MAG HYDROX/AL HYDROX/SIMETH 30 ML UNIT-DOSE CUP PO PRN (10:01)
[2022-02-06] MEDS ORDERED: NICOTINE 10 MG CARTRIDGE (INHALER) IH PRN (10:01)
[2022-02-06] MEDS ORDERED: MAGNESIUM HYDROX 2400MG/30ML ORAL SUSPENSION 30 ML CUP PO PRN (10:01)
[2022-02-06] MEDS ORDERED: BISMUTH SUBSALICYLATE 524 MG/30 ML PO PRN (10:01)
[2022-02-06] MEDS ORDERED: DICYCLOMINE HCL 10 MG CAPSULE PO PRN (10:01)
[2022-02-06] MEDS: diazePAM 5 MG TABLET PO SCH ×3 (11:53→23:15)
[2022-02-06] MEDS: NICOTINE 14 MG/24 HOURS TOPICAL PATCH TD SCH (11:54)
[2022-02-06] MEDS: hydrOXYzine PAMOATE 25 MG CAPSULE (FP) PO SCH ×3 (15:44→21:24)
[2022-02-06 17:55] LABS: HEMATOCRIT 34.2 % (35.4-49); HEMOGLOBIN 11.3 GM/dL (11.7-16.9); MCH 27.8 pg (25.7-33.7); MCHC 33.2 g/dl (32.0-35.9); MEAN CELL VOLUME 83.8 fl (80-96); MEAN PLT VOLUME 8.6 fl (7.5-11.1); PLATELET COUNT 236 10^3/uL (134-434); RBC 4.08 M/mm3 (4.00-5.60); RDW 14.8 % (11.9-15.9); WHITE BLOOD COUNT 16.6 K/mm3 (4.0-10.0)
[2022-02-06 18:04] LABS: ALBUMIN 3.4 g/dl (3.4-5.0); BLOOD UREA NITROGEN 20.5 mg/dL (7-18); CALCIUM 8.8 mg/dL (8.5-10.1)
[2022-02-06 18:09] LABS: BILIRUBIN,TOTAL 0.4 mg/dL (0.2-1); TOT PROT 7.7 g/dl (6.4-8.2)
[2022-02-06] MEDS: QUEtiapine FUMARATE 50 MG TABLET PO SCH (21:24)
[2022-02-06] MEDS: THIAMINE HCL 100 MG TABLET (FP) PO SCH (21:25)
[2022-02-06] MEDS: diazePAM 5 MG TABLET PO PRN (21:25)
[2022-02-06] MEDS ORDERED: MELATONIN 5 MG TABLETS PO SCH (22:00)
[2022-02-07] MEDS: diazePAM 5 MG TABLET PO SCH ×4 (05:40→22:33)
[2022-02-07] MEDS: hydrOXYzine PAMOATE 25 MG CAPSULE (FP) PO SCH ×5 (05:41→22:33)
[2022-02-07] MEDS: NICOTINE 14 MG/24 HOURS TOPICAL PATCH TD SCH (10:45)
[2022-02-07] MEDS: PRENATAL VITAMINS W/ FOLIC ACID TABLET (FP) PO SCH (10:45)
[2022-02-07] MEDS: METHOCARBAMOL 500 MG TABLET PO PRN (10:46)
[2022-02-07] MEDS: diazePAM 5 MG TABLET PO PRN (14:40)
[2022-02-07] MEDS: THIAMINE HCL 100 MG TABLET (FP) PO SCH (22:32)
[2022-02-07] MEDS: QUEtiapine FUMARATE 50 MG TABLET PO SCH (22:32)
[2022-02-08] MEDS: diazePAM 5 MG TABLET PO SCH ×3 (05:47→22:51)
[2022-02-08] MEDS: hydrOXYzine PAMOATE 25 MG CAPSULE (FP) PO SCH ×5 (05:47→22:51)
[2022-02-08] MEDS ORDERED: methaDONE HCL 10 MG TABLET (FOR DETOX USE ONLY) PO ONE (10:00)
[2022-02-08 10:16] LABS: BASO % 0.2 % (0-2.0); EOS % 5.1 % (0-4.5); HEMATOCRIT 35.4 % (35.4-49); HEMOGLOBIN 11.5 GM/dL (11.7-16.9); LYMPH % 31.2 % (8-40); MCH 26.9 pg (25.7-33.7); MCHC 32.3 g/dl (32.0-35.9); MEAN CELL VOLUME 83.3 fl (80-96); MEAN PLT VOLUME 8.7 fl (7.5-11.1); MONO % 12.5 % (3.8-10.2); PLATELET COUNT 246 10^3/uL (134-434); RBC 4.25 M/mm3 (4.00-5.60); RDW 14.9 % (11.9-15.9)
[2022-02-08] MEDS: PRENATAL VITAMINS W/ FOLIC ACID TABLET (FP) PO SCH (10:19)
[2022-02-08] MEDS: METHOCARBAMOL 500 MG TABLET PO PRN (10:19)
[2022-02-08] MEDS: NICOTINE 14 MG/24 HOURS TOPICAL PATCH TD SCH (10:19)
[2022-02-08] MEDS: diazePAM 5 MG TABLET PO PRN ×2 (10:20→16:48)
[2022-02-08] MEDS: QUEtiapine FUMARATE 50 MG TABLET PO SCH (22:39)
[2022-02-08] MEDS: THIAMINE HCL 100 MG TABLET (FP) PO SCH (22:51)
[2022-02-09] MEDS: hydrOXYzine PAMOATE 25 MG CAPSULE (FP) PO SCH ×3 (05:26→13:06)
[2022-02-09] MEDS ORDERED: diazePAM 5 MG TABLET PO SCH (06:00)
[2022-02-09] MEDS: NICOTINE 14 MG/24 HOURS TOPICAL PATCH TD SCH (10:11)
[2022-02-09] MEDS: PRENATAL VITAMINS W/ FOLIC ACID TABLET (FP) PO SCH (10:14)
[2022-02-09 13:43] VITALS: BP 123/77; PULSE 101; RESP 20; TEMP 97.5
[2022-02-10] MEDS ORDERED: diazePAM 5 MG TABLET PO ONE (06:00)
[2022-02-10] MEDS ORDERED: methaDONE HCL 10 MG TABLET (FOR DETOX USE ONLY) PO ONE (10:00)
== END 2022-02-09 13:25 | disposition home or self-care (01) | DRG 773 ==
LOC: YASAS 08:41 → Y6N 11:04
PROVIDERS: ADMIT Allergy & Immunology; ATTEND Surgery
PROC: HZ2ZZZZ Detoxification Services for Substance Abuse Treatment (ICD-10-PCS; principal; 2022-02-06)
DX: F11.23 Opioid dependence with withdrawal (principal); F10.230 Alcohol dependence with withdrawal, uncomplicated; F14.20 Cocaine dependence, uncomplicated; F12.20 Cannabis dependence, uncomplicated; F17.210 Nicotine dependence, cigarettes, uncomplicated; F19.282 Other psychoactive substance dependence with psychoactive substance-induced sleep disorder; F41.9 Anxiety disorder, unspecified; B18.2 Chronic viral hepatitis C; R63.4 Abnormal weight loss; Z68.20 Body mass index [BMI] 20.0-20.9, adult; Z88.8 Allergy status to other drugs, medicaments and biological substances
CPT/HCPCS: 36415; 80053; 85025; 85027; 86780; C9803-CS; U0003; U0005